=== PATIENT | female | born 1955 | race African-American/Black ===

== ENCOUNTER 2017-04-07 03:20 | Emergency (ER) | payer MEDICARE, OTHER ==
[~2017-04-07] VITALS: Ht 167.6 cm; Wt 72.6 kg
[2017-04-07 04:20] LABS: *BILIRUBIN,URIN NEGATIVE (NEGATIVE); *BLOOD, URINE NEGATIVE (NEGATIVE); *CLARITY,URINE CLEAR (CLEAR); *COLOR,URINE YELLOW (YELLOW); *KETONES,URINE NEGATIVE (NEGATIVE); *PROTEIN,URINE NEGATIVE (NEGATIVE); LEUKOCYTE ESTERASE ,URINE NEGATIVE (NEGATIVE); NITRITE, URINE NEGATIVE (NEGATIVE); PH,URINE 5.5 (5.0-8.0); UGLUCOSE NEGATIVE (NEGATIVE)
[2017-04-07 04:23] LABS: BASOPHILS # (AUTO) 0.1 K/uL (0.0-8.0); BASOPHILS % (AUTO) 0.9 % (0.0-2.0); EOSINOPHILS # (AUTO) 0.1 K/uL (0.0-0.7); EOSINOPHILS % (AUTO) 0.9 % (0.0-7.0); HEMATOCRIT 36.2 % (37-47); LYMPHOCYTES # (AUTO) 2.4 K/UL (0.8-4.8); LYMPHOCYTES % (AUTO) 35.5 % (20.5-51.5); MEAN CORPUSCULAR HEMOGLOBIN 28.1 UUG (27.0-31.0); MEAN CORPUSCULAR HGB CONC 33 g/dL (32.0-37.0); MEAN CORPUSCULAR VOLUME 84.5 FL (81.0-99.0); MONOCYTES # (AUTO) 0.8 K/UL (0.1-1.30); MONOCYTES % (AUTO) 10.9 % (0.0-11.0); NEUTROPHILS # (AUTO) 3.5 K/UL (1.8-8.9); NEUTROPHILS % (AUTO) 51.8 % (38.5-71.5); PLATELET COUNT (AUTO) 220 K/UL (150-450); RED BLOOD CELL COUNT(AUTO) 4.28 MIL/UL (4.2-5.4); WHITE BLOOD COUNT (AUTO) 6.9 K/UL (4.0-11.2)
[2017-04-07 04:26] LABS: RBC,URINE 0-3 /HPF (0-3)
[2017-04-07 04:27] LABS: BACTERIA,URINE NONE SEEN /HPF (NONE SEEN); SQUAMOUS EPITHELIAL CELL,UR NONE SEEN /HPF (NONE SEEN); WBC,URINE 0-3 /HPF (0-3)
[2017-04-07 04:28] LABS: CREATININE 1.1 mg/dL (0.6-1.3)
[2017-04-07 04:35] LABS: BILIRUBIN,DIRECT 0.3 mg/dL (0.0-0.2)
--- NOTE | 2017-04-07 05:10 | NUR ---
Patient discharged to home in stable conditon. Written and verbal after care instructions given. Patient verbalizes understanding of instructions. Ambulated from ER with stable gait. All belongings with patient.
[2017-04-07 05:12] VITALS: BP 129/80
[2017-04-07] MEDS ORDERED: POTASSIUM BICARBONATE/CIT AC 25 MEQ TABLET.EFF PO ONE (05:15)
[2017-04-07] MEDS ORDERED: POTASSIUM BICARBONATE/CIT AC 25 MEQ TABLET.EFF ONE (05:18)
== END 2017-04-07 05:13 | disposition home or self-care (01) ==
LOC: ER 03:22
DX: E87.6 Hypokalemia (principal); R10.31 Right lower quadrant pain; F17.200 Nicotine dependence, unspecified, uncomplicated; Z86.73 Personal history of transient ischemic attack (TIA), and cerebral infarction without residual deficits
CPT/HCPCS: 36415; 74176; 80048; 80076; 81001; 83690; 85025; 93005; 99285; A4663

== ENCOUNTER 2017-04-19 20:47 | Emergency (ER) | payer OTHER ==
[~2017-04-19] VITALS: Ht 172.7 cm; Wt 63.5 kg
--- NOTE | 2017-04-19 21:11 | NUR ---
Pt developed what she describes as an abscess in her groin area about 6 weeks ago, states she "brought it to a head" and drained it about 3-4 weeks ago, and now it is back and painful at site and in upper left leg, 02/18. Pt denies CP, SOB, numbness/tingling, dizziness, n/v, no other complaints, no distress noted.
[2017-04-19] MEDS ORDERED: SULFAMETH/TRIMETH 800/160 MG TABLET PO ONE (21:30)
[2017-04-19] MEDS ORDERED: CEFTRIAXONE 1 G VIAL IM ONE (21:30)
[2017-04-19] MEDS ORDERED: CEFTRIAXONE 1 G VIAL ONE (21:38)
[2017-04-19] MEDS ORDERED: SULFAMETH/TRIMETH 800/160 MG TABLET ONE (21:38)
--- NOTE | 2017-04-19 21:47 | NUR ---
Gave pt. RX and d/c instructions, verbalized understanding.
[2017-04-24] MEDS ORDERED: ACET325T53 PO (17:34)
[2017-04-24] MEDS ORDERED: DOCU100C36 PO (17:34)
[2017-04-24] MEDS ORDERED: ENOX40DI SQ (17:34)
[2017-04-24] MEDS ORDERED: PANT40TA2 PO (17:34)
[2017-04-24] MEDS ORDERED: ACID1TAB4 PO (17:34)
[2017-04-24] MEDS ORDERED: PIPE3.379 IV (17:34)
[2017-04-24] MEDS ORDERED: MAGN400O6 PO (17:34)
[2017-04-24] MEDS ORDERED: HYDR-3326 PO (17:34)
[2017-04-24] MEDS ORDERED: MULT1TAB73 PO (17:34)
[2017-04-24] MEDS ORDERED: RXVAN XX (17:34)
[2017-04-24] MEDS ORDERED: ZOLP5TAB8 PO (17:34)
== END 2017-04-19 21:49 | disposition home or self-care (01) ==
LOC: ER 20:47
DX: N76.4 Abscess of vulva (principal); F17.200 Nicotine dependence, unspecified, uncomplicated; Z86.73 Personal history of transient ischemic attack (TIA), and cerebral infarction without residual deficits
CPT/HCPCS: A4663; J0696; J3490

== ENCOUNTER 2017-04-22 04:40 | Inpatient (IN) | payer OTHER ==
[~2017-04-22] VITALS: Ht 172.7 cm; Wt 63.5 kg
--- NOTE | 2017-04-22 06:46 | NUR ---
UNABLE TO GAIN IV ACCESS AT THIS TIME.
[2017-04-22 07:02] LABS: BASOPHILS # (AUTO) 0.3 K/uL (0.0-8.0); BASOPHILS % (AUTO) 4.2 % (0.0-2.0); EOSINOPHILS # (AUTO) 0.2 K/uL (0.0-0.7); EOSINOPHILS % (AUTO) 3.1 % (0.0-7.0); HEMATOCRIT 31.3 % (37-47); HEMOGLOBIN 10.2 G/DL (12.0-16.0); LYMPHOCYTES # (AUTO) 2.1 K/UL (0.8-4.8); MEAN CORPUSCULAR HEMOGLOBIN 27.8 UUG (27.0-31.0); MEAN CORPUSCULAR HGB CONC 33 g/dL (32.0-37.0); MEAN CORPUSCULAR VOLUME 85.5 FL (81.0-99.0); MONOCYTES # (AUTO) 0.5 K/UL (0.1-1.30); MONOCYTES % (AUTO) 8.6 % (0.0-11.0); NEUTROPHILS # (AUTO) 2.9 K/UL (1.8-8.9); NEUTROPHILS % (AUTO) 49.1 % (38.5-71.5); PLATELET COUNT (AUTO) 306 K/UL (150-450); RED BLOOD CELL COUNT(AUTO) 3.66 MIL/UL (4.2-5.4)
--- NOTE | 2017-04-22 07:12 | NUR ---
REPORT GIVEN TO SANDI HOLDER.
[2017-04-22 07:18] LABS: CREATININE 0.8 mg/dL (0.6-1.3); POTASSIUM 4.7 mmol/L (3.5-5.1)
[2017-04-22 07:30] LABS: BILIRUBIN,DIRECT 0.1 mg/dL (0.0-0.2); BILIRUBIN,TOTAL 0.2 mg/dL (0.2-1.0); TOTAL PROTEIN, SERUM 7.6 g/dL (6.4-8.2)
--- NOTE | 2017-04-22 08:20 | NUR ---
PT ADMITTED TO M/S TRANSFER TO FLOOR PENDING ON US BEING DONE IN ER.
[2017-04-22 10:09] VITALS: BP 112/51
--- NOTE | 2017-04-22 11:25 | NUR ---
ADMISSION PROTOCOL INITIATED, PT IN NO ACUTE DISTRESS, HAS PAIN 8/10 IN BLE, VS STABLE. ADMISSION PICTURES TAKEN. CALL LIGHT IN REACH
[2017-04-22 11:58] VITALS: BP 111/65
--- NOTE | 2017-04-22 13:40 | NUR ---
CLINICAL PHARMACY NOTE:VANCOMYCIN DOSING Request for vancomycin dosing on 62 y/o female 5'8" 140LBS for bilateral lower extremity cellulitis Temp 98.5 BUN 6 Scr 0.8 Temp 98.5 also on Zosyn Vancomycin 1gm given in ER continue Vancomycin 1gm ivpb q16h estimated trough 14. Will order trough level prior to 4th dose. Will continue to monitor
--- NOTE | 2017-04-22 14:12 | NUR ---
PT IN ROOM TO EVALUATE PT, PAIN MEDICATION GIVEN PRIOR FOR PAIN 04/21
[2017-04-22] MEDS ORDERED: CEPH-570 PO (14:42)
[2017-04-22] MEDS ORDERED: SULF1TAB48 PO (14:42)
[2017-04-22 16:06] VITALS: BP 114/63
--- NOTE | 2017-04-22 17:44 | NUR ---
PT SLEEPING IN BED AT THIS TIME AWAKENS TO NAME. HAS MINIMAL PAIN AT THIS TIME, CALL LIGHT IN REACH, NO CHANGES SINCE ADMISSION. ALL SAFETY AND COMFORT MEASURES ATTENDED TOO
[2017-04-22 20:18] VITALS: BP 118/76
[2017-04-23 04:00] VITALS: BP 139/76
--- NOTE | 2017-04-23 06:30 | NUR ---
PT SLEPT WELL, IN NO ACUTE DISTRESS. IV ANTIBIOTICS ADMINISTERED ORDERED. NO ADVERSE REACTION NOTED. CALL LIGHT WITHIN REACH, BED ALARM ON. WILL CONTINUE TO MONITOR.
[2017-04-23 06:35] LABS: BASOPHILS # (AUTO) 0.1 K/uL (0.0-8.0); EOSINOPHILS # (AUTO) 0.1 K/uL (0.0-0.7); EOSINOPHILS % (AUTO) 2.9 % (0.0-7.0); HEMATOCRIT 28.8 % (37-47); HEMOGLOBIN 9.5 G/DL (12.0-16.0); LYMPHOCYTES % (AUTO) 40.5 % (20.5-51.5); MEAN CORPUSCULAR HEMOGLOBIN 28.2 UUG (27.0-31.0); MEAN CORPUSCULAR HGB CONC 33 g/dL (32.0-37.0); MEAN CORPUSCULAR VOLUME 85.1 FL (81.0-99.0); MONOCYTES # (AUTO) 0.4 K/UL (0.1-1.30); MONOCYTES % (AUTO) 7.5 % (0.0-11.0); NEUTROPHILS # (AUTO) 2.3 K/UL (1.8-8.9); NEUTROPHILS % (AUTO) 47.1 % (38.5-71.5); PLATELET COUNT (AUTO) 296 K/UL (150-450); RED BLOOD CELL COUNT(AUTO) 3.38 MIL/UL (4.2-5.4); WHITE BLOOD COUNT (AUTO) 4.9 K/UL (4.0-11.2)
[2017-04-23 06:51] LABS: BILIRUBIN,TOTAL 0.3 mg/dL (0.2-1.0); CREATININE 0.7 mg/dL (0.6-1.3); MAGNESIUM 1.5 mg/dL (1.8-2.4); PHOSPHOROUS 3.5 mg/dL (2.5-4.9); POTASSIUM 3.4 mmol/L (3.5-5.1); TOTAL PROTEIN, SERUM 6.3 g/dL (6.4-8.2)
[2017-04-23 11:44] VITALS: BP 128/71
[2017-04-23 12:29] LABS: THYROID STIMULATING HORMONE 2.206 mIU/mL (0.358-3.740)
--- NOTE | 2017-04-23 13:56 | NUR ---
Clinical Pharmacy Note: Vancomycin Dosing per Pharmacy Subjective: Vancomycin IV to continue on this 62 yo female patient for cellulitis ht 68'' wt 140 lb Objective: BUN 7 Scr 0.7 WBC 4.9 Temperature 98.4 Assessment/Plan: Will continue same dose of vanco 1000mg IV q16hr for today. 3rd dose is due tomorrow at 0600. Will draw a vancomycin trough level prior to the 4th dose of vancomycin (not yet ordered). Will monitor renal function & adjust dose if needed. Will continue to monitor
[2017-04-23 16:07] VITALS: BP 133/65
--- NOTE | 2017-04-23 18:30 | NUR ---
Pt is in no acute distress. Swelling on kimberli lower legs +2 noted since am. Pt denies any c/o pain. IV on left hand intact. Call light is within reach. .
[2017-04-23 20:00] VITALS: BP 129/69
--- NOTE | 2017-04-23 23:12 | NUR ---
ALERT AND ORIENTED X4. PAIN 7/10 ON BILATERAL LOWER EXT POSITIVE EDEMA. WALKS WITH WALKER CONTACT GUARD. NO CHEST PAIN NOR SOB. CALL LIGHT WITHIN REACH.
[2017-04-24 04:53] VITALS: BP 142/79
[2017-04-24 04:55] VITALS: BP 142/79
--- NOTE | 2017-04-24 06:31 | NUR ---
SLEPT INTERMITTENTLY THROUGH THE NIGHT GOT OOB TO PEE. REINSERTED IV CATH ON LEFT SIDE. OTHERWISE NO OTHER COMPLAINT, ALL NEEDS ATTENDED.
[2017-04-24 11:31] VITALS: BP 137/65
--- NOTE | 2017-04-24 11:54 | NUR ---
Clinical Pharmacy Note: Vancomycin Dosing per Pharmacy Subjective: Vancomycin IV to continue on this 62 yo female patient for cellulitis ht 68'' wt 140 lb Objective: BUN 7 (04/23) Scr 0.7 (04/23) WBC 4.9 (04/23) Temperature 98.8 Assessment/Plan: Will continue same dose of vanco 1000mg IV q16hr for today. 3rd dose was today at 0600. Will draw a vancomycin trough level prior to the 4th dose of vancomycin (Ordered for [facility] at 2130). RN endorsed to hold dose if level >20. Will check level in am and adjust as needed. Will continue to monitor
--- NOTE | 2017-04-24 15:38 | NUR ---
Discharge Plan: Once patient is medically cleared patient will be discharged to [[facility] [[address] [place] [address] ] confirmed by Max. Mcknight [Process Development Engineer [phone]] arranged for [facility] [[phone] Auth # [id number]] to transport the patient. Dr. Ruelas is aware. The patient is agreeable with the discharge plan.
[2017-04-24 15:51] VITALS: BP 143/77
[2017-04-24] MEDS ORDERED: HYDR-3326 PO (17:34)
[2017-04-24] MEDS ORDERED: PANT40TA2 PO (17:34)
[2017-04-24] MEDS ORDERED: DOCU100C36 PO (17:34)
[2017-04-24] MEDS ORDERED: MULT1TAB73 PO (17:34)
[2017-04-24] MEDS ORDERED: ZOLP5TAB8 PO (17:34)
[2017-04-24] MEDS ORDERED: MAGN400O6 PO (17:34)
[2017-04-24] MEDS ORDERED: ACET325T53 PO (17:34)
[2017-04-24] MEDS ORDERED: ACID1TAB4 PO (17:34)
[2017-04-24] MEDS ORDERED: ENOX40DI SQ (17:34)
[2017-04-24] MEDS ORDERED: PIPE3.379 IV (17:34)
[2017-04-24] MEDS ORDERED: RXVAN XX (17:34)
--- NOTE | 2017-04-24 18:15 | NUR ---
Report given to Sheila JUNIOR from [facility]. Dosage of Vancomycin and Zosyn and how many dosage was given. IV left on Left hand #22 gauge. Pt is in no acute distress. Report given EMT. Pt refused to have pictures taken of legs but legs less swollen and decrease redness. Pt to f/u with vaccines with her PMD.
== END 2017-04-24 18:05 | DRG 383 ==
LOC: ER 04:40 → MED 08:59
PROVIDERS: ADMIT Internal Medicine; ATTEND Internal Medicine
DX: L03.115 Cellulitis of right lower limb (principal); D68.59 Other primary thrombophilia; D63.8 Anemia in other chronic diseases classified elsewhere; Z86.73 Personal history of transient ischemic attack (TIA), and cerebral infarction without residual deficits; L03.116 Cellulitis of left lower limb; I51.7 Cardiomegaly; Z59.0 Homelessness; Z86.19 Personal history of other infectious and parasitic diseases; D75.9 Disease of blood and blood-forming organs, unspecified; R22.9 Localized swelling, mass and lump, unspecified
CPT/HCPCS: 36415; 70030-TC; 71010; 83550; 83735; 84100; 84443; 85025; 85651; 85730; 86140; 93005; 97116; 97530; A4663; J1650; J2543; J3370; J7050

== ENCOUNTER 2017-05-25 22:25 | Emergency (ER) | payer OTHER ==
[~2017-05-25] VITALS: Ht 167.6 cm; Wt 67.1 kg
[~2017-05-25 22:25] MED LIST: ACET325T53 PO; ACID1TAB4 PO; DOCU100C36 PO; ENOX40DI SQ; HYDR-3326 PO; MAGN400O6 PO; MULT1TAB73 PO; PANT40TA2 PO; PIPE3.379 IV; RXVAN XX; ZOLP5TAB8 PO
[2017-05-25 23:12] VITALS: BP 141/81
[2017-05-25] MEDS ORDERED: FUROSEMIDE 20 MG TABLET PO ONE (23:15)
[2017-05-25] MEDS ORDERED: FUROSEMIDE 20 MG TABLET ONE (23:20)
== END 2017-05-25 23:13 | disposition home or self-care (01) ==
LOC: ER 22:26
DX: R60.0 Localized edema (principal); F17.200 Nicotine dependence, unspecified, uncomplicated; Z86.73 Personal history of transient ischemic attack (TIA), and cerebral infarction without residual deficits
CPT/HCPCS: 99283; A4663

== ENCOUNTER 2017-06-07 03:02 | Inpatient (IN) | payer OTHER ==
[~2017-06-07] VITALS: Ht 167.6 cm; Wt 67.1 kg
--- NOTE | 2017-06-07 03:20 | NUR ---
Pt is received alert, responsive as she came in c/o Bilateral lower Extermities pain with Swelling, Rednessfor the past 2days. her care continue as she is help undressed as awaits MD for orders as she is with at bedside .
[2017-06-07] MEDS ORDERED: VANCOMYCIN IV 1,000 MG in IV DEXTROSE 5% 250 ML IV ONE (03:30)
[2017-06-07] MEDS ORDERED: ONDANSETRON 4 MG/2 ML VIAL IV ONE (03:30)
[2017-06-07] MEDS ORDERED: MORPHINE SULFATE 2 MG/1 ML DISP.SYRIN IV ONE (03:30)
[2017-06-07] MEDS ORDERED: ONDANSETRON 4 MG/2 ML VIAL ONE (03:57)
[2017-06-07] MEDS ORDERED: MORPHINE SULFATE 2 MG/1 ML DISP.SYRIN ONE (03:57)
[2017-06-07] MEDS ORDERED: VANCOMYCIN IV 200 ML ONE (03:58)
[2017-06-07 04:03] LABS: BASOPHILS % (AUTO) 0.4 % (0.0-2.0); EOSINOPHILS # (AUTO) 0.1 K/uL (0.0-0.7); EOSINOPHILS % (AUTO) 1.9 % (0.0-7.0); HEMATOCRIT 33.1 % (37-47); HEMOGLOBIN 11.1 G/DL (12.0-16.0); LYMPHOCYTES # (AUTO) 2.8 K/UL (0.8-4.8); LYMPHOCYTES % (AUTO) 51.2 % (20.5-51.5); MEAN CORPUSCULAR HEMOGLOBIN 27.7 UUG (27.0-31.0); MEAN CORPUSCULAR HGB CONC 34 g/dL (32.0-37.0); MEAN CORPUSCULAR VOLUME 82.6 FL (81.0-99.0); MONOCYTES # (AUTO) 0.4 K/UL (0.1-1.30); MONOCYTES % (AUTO) 7.9 % (0.0-11.0); NEUTROPHILS % (AUTO) 38.6 % (38.5-71.5); PLATELET COUNT (AUTO) 298 K/UL (150-450); RED BLOOD CELL COUNT(AUTO) 4.01 MIL/UL (4.2-5.4); WHITE BLOOD COUNT (AUTO) 5.3 K/UL (4.0-11.2)
[2017-06-07 04:09] LABS: CREATININE 0.8 mg/dL (0.6-1.3); POTASSIUM 4.1 mmol/L (3.5-5.1)
[2017-06-07 04:21] LABS: BILIRUBIN,DIRECT 0.1 mg/dL (0.0-0.2); BILIRUBIN,TOTAL 0.2 mg/dL (0.2-1.0)
--- NOTE | 2017-06-07 04:23 | NUR ---
Pt cont to c/o severe pain. Sts no change with previous medication. Dr. Valera notified, pt medicated. Will monitor for effects of medication. Pt resting in a position of comfort for self
[2017-06-07] MEDS ORDERED: HYDROMORPHONE 1 MG/1 ML DISP.SYRIN IV ONE ×2 (04:30→07:30)
[2017-06-07] MEDS ORDERED: HYDROMORPHONE 1 MG/1 ML DISP.SYRIN ONE ×2 (04:35→07:34)
--- NOTE | 2017-06-07 05:55 | NUR ---
Pt is resting in bed alert, responsive with call light in reach and fall precautions as pain management noted effective as pt will be admitted as her care continue.
--- NOTE | 2017-06-07 06:25 | NUR ---
Pt remain alert, responsive as [facility] is called at [phone] Newell is covering and also 2nd floor is called for bed as 220 is the bed for now.
[2017-06-07] MEDS ORDERED: ONDANSETRON 4 MG/2 ML VIAL IV PRN (06:45)
[2017-06-07] MEDS ORDERED: ENOXAPARIN SODIUM 40 MG/0.4 ML DISP.SYRIN SQ SCH (06:45)
[2017-06-07] MEDS ORDERED: Z GUARD REMEDY PASTE 57 GM TUBE TOP PRN (06:45)
[2017-06-07] MEDS ORDERED: ACETAMINOPHEN 325 MG TABLET PO PRN (06:45)
[2017-06-07] MEDS ORDERED: MAGNESIUM HYDROXIDE 30 ML LIQUID UDC PO PRN ×2 (06:45)
--- NOTE | 2017-06-07 06:45 | NUR ---
Pt remain alert, responsive as DR. Newell called ER MD for OK to admitted to Med/surg and DX: off Bilateral lower Extremities Cellulitis . Her care continue while monitor as 2nd floor was called to give report but was told to called at 7AM.
[2017-06-07] MEDS: PANTOPRAZOLE SODIUM 40 MG TABLET.DR PO SCH (07:10)
[2017-06-07] MEDS ORDERED: ENOXAPARIN SODIUM 40 MG/0.4 ML DISP.SYRIN SQ ONE (07:21)
[2017-06-07] MEDS ORDERED: PANTOPRAZOLE SODIUM 40 MG TABLET.DR PO ONE (07:22)
--- NOTE | 2017-06-07 08:02 | NUR ---
Pt is remain alert, responsive as report is given to the receiving nurse on the 2nd floor as pt is been admitted to Med/Surg room 220 as she remain stable. Her care continue.
[2017-06-07 08:21] VITALS: BP 156/65
--- NOTE | 2017-06-07 08:30 | NUR ---
PATIENT RECEIVED FROM ER VIA HOSPITAL BED, REPORT RECEIVED FROM LETY JUNIOR, 119/68, 74 PULSE, 18 RESP, 97.8 ORAL, ON ROOM AIR, COMPLAINS OF PAIN LEVEL 04/21, LETY JUNIOR FROM ER STATES DILAUDID WAS GIVEN AT 0723, REDNESS AND SWELLING NOTED TO BOTH LOWER EXTREMITIES, PICTURES PLACED IN CHART, 4 PLUS PITTING EDEMA NOTED ON ANKLES AND FEET, PAIN NOTED UPON TOUCH, NO OTHER SKIN ISSUES NOTED, PATIENT IS ALERT AND ORIENTED TO PERSON, PLACE, AND TIME. OCCASIONAL SLEEPING NOTED, HEP. LOCK NOTED TO RIGHT FOREARM 20 GAUGE, DOCTOR JEWELL NOTIFIED OF PATIENTS ARRIVAL
[2017-06-07] MEDS: ACIDOPHILUS/BULGARICUS CHEW TAB PO SCH ×2 (10:26→17:07)
[2017-06-07] MEDS: MULTIVITAMINS,THERAPEUTIC TABLET PO SCH (10:27)
[2017-06-07] MEDS: PIPERACILLIN/TAZOBACTAM/D5W 3.375 G in PREMIXED 1 EACH IV SCH ×3 (10:27→21:15)
[2017-06-07 11:05] VITALS: BP 132/64
--- NOTE | 2017-06-07 13:13 | NUR ---
FIRST DOSE OF ZOSYN GIVEN AT 1027, VERIFIED WITH PHARMACY, 1400 DOSE HELD DUE TO SCHEDULING ERROR, ORDER READS ZOSYN TO BE GIVEN Q8HR
[2017-06-07] MEDS ORDERED: PIPERACILLIN/TAZO/D5W 3.375 GM FROZEN IV SCH (14:00)
--- NOTE | 2017-06-07 14:19 | NUR ---
Clinical pharmacy note-Vancomycin dosing per pharmacy Subjective: To start Vancomycin dosing on this patient for cellulitis Objective: BUN 7 Scr 0.8 WBC 5.3 Temp 98.6 Ht 5'6" wt 140 lbs Assessment/Plan: Patient had Vancomycin 1gram in ER today at 0402. Will continue Vancomycin 1 gram IV every 14hrs(second dose today at 1800) and draw trough by 4th dose(not ordered yet) for expected trough around 16.31. Will monitor renal function closely to adjust the dose if needed. Will follow daily.
[2017-06-07 15:25] VITALS: BP 120/68
[2017-06-07] MEDS: VANCOMYCIN IV 1 G in PREMIXED 0 EACH IV SCH (17:08)
[2017-06-07] MEDS: MORPHINE SULFATE 2 MG/1 ML DISP.SYRIN IV PRN (18:53)
[2017-06-07 20:00] VITALS: BP 109/59
--- NOTE | 2017-06-07 20:00 | NUR ---
RECEIVED PATIENT ASLEEP IN BED. EASILY AROUSABLE. DENIES PAIN. NO RESP. DISTRESS NOTED. VSS. CALL LIGHT IN REACH. ALL NEEDS ATTENDED. WILL CONTINUE TO MONITOR.
[2017-06-07] MEDS: DOCUSATE SODIUM 100 MG CAPSULE PO SCH (20:53)
--- NOTE | 2017-06-08 05:26 | NUR ---
PATIENT AWAKE IN BED. SLEPT WELL THROUGHOUT THE NIGHT. C/O PAIN IN BILATERAL FEET 04/21. VSS. PATIENT GIVEN MORPHINE 2MG IV PER FRUIT AND VEGETABLE PARER. CALL LIGHT IN REACH. ALL NEEDS ATTENDED. WILL CONTINUE TO MONITOR AND ASSESS.
[2017-06-08] MEDS: PIPERACILLIN/TAZOBACTAM/D5W 3.375 G in PREMIXED 1 EACH IV SCH ×3 (05:41→21:32)
[2017-06-08] MEDS: MORPHINE SULFATE 2 MG/1 ML DISP.SYRIN IV PRN ×2 (05:41→11:06)
[2017-06-08 06:01] VITALS: BP 119/54
[2017-06-08] MEDS: PANTOPRAZOLE SODIUM 40 MG TABLET.DR PO SCH (06:07)
[2017-06-08 06:48] LABS: BASOPHILS # (AUTO) 0.1 K/uL (0.0-8.0); BASOPHILS % (AUTO) 1.1 % (0.0-2.0); CREATININE 0.9 mg/dL (0.6-1.3); EOSINOPHILS # (AUTO) 0.1 K/uL (0.0-0.7); EOSINOPHILS % (AUTO) 1.6 % (0.0-7.0); HEMATOCRIT 29.2 % (37-47); HEMOGLOBIN 9.8 G/DL (12.0-16.0); LYMPHOCYTES # (AUTO) 1.5 K/UL (0.8-4.8); LYMPHOCYTES % (AUTO) 28.8 % (20.5-51.5); MAGNESIUM 1.6 mg/dL (1.8-2.4); MEAN CORPUSCULAR HEMOGLOBIN 27.9 UUG (27.0-31.0); MEAN CORPUSCULAR HGB CONC 34 g/dL (32.0-37.0); MEAN CORPUSCULAR VOLUME 83.1 FL (81.0-99.0); MONOCYTES # (AUTO) 0.4 K/UL (0.1-1.30); MONOCYTES % (AUTO) 8.2 % (0.0-11.0); NEUTROPHILS # (AUTO) 3.2 K/UL (1.8-8.9); NEUTROPHILS % (AUTO) 60.3 % (38.5-71.5); PHOSPHOROUS 3.5 mg/dL (2.5-4.9); PLATELET COUNT (AUTO) 257 K/UL (150-450); POTASSIUM 3.7 mmol/L (3.5-5.1); RED BLOOD CELL COUNT(AUTO) 3.51 MIL/UL (4.2-5.4); WHITE BLOOD COUNT (AUTO) 5.3 K/UL (4.0-11.2)
--- NOTE | 2017-06-08 08:00 | NUR ---
RECEIVED PATIENT IN BED AWAKE ALERT AND ORIENTED DENIES PAIN OR DISCOMFORTS AT THIS TIME CALL LIGHTS ARE WITHIN EASY REACH PATIENT MADE COMFORTABLE AT THIS TIME.
[2017-06-08] MEDS: MULTIVITAMINS,THERAPEUTIC TABLET PO SCH (08:24)
[2017-06-08] MEDS: ACIDOPHILUS/BULGARICUS CHEW TAB PO SCH ×2 (08:24→16:32)
[2017-06-08] MEDS: VANCOMYCIN IV 1 G in PREMIXED 0 EACH IV SCH ×2 (08:25→21:37)
[2017-06-08] MEDS: ENOXAPARIN SODIUM 40 MG/0.4 ML DISP.SYRIN SQ SCH (08:32)
--- NOTE | 2017-06-08 09:59 | NUR ---
PATIENT REMAIN ON IV ANTIBIOTICS ORDERED WITH NO ADVERSE OR ALLERGIC REACTIONS AT THIS TIME BILATERAL LOWER EXT REMAINS WITH EDEMA ENCOURAGED TO ELEVATE ON THE PILLOW AND SHE EXPRESSED UNDERSTANDING.
--- NOTE | 2017-06-08 11:10 | NUR ---
IV SITE RIGHT ARM INFILTERATED REINSERTED TO HER LEFT HAND WITH TWO ATTEMPTS AND PATIENT TOLERATED PROCEDURE WELL
[2017-06-08 11:39] VITALS: BP 114/62
[2017-06-08] MEDS ORDERED: MAGNESIUM OXIDE 400 MG TABLET PO ONE (14:00)
--- NOTE | 2017-06-08 14:52 | NUR ---
Clinical pharmacy note-Vancomycin dosing per pharmacy Subjective: To continue Vancomycin dosing on this patient for cellulitis Objective: BUN 14 Scr 0.9 WBC 5.3 Temp 98.4 Ht 5'6" wt 140 lbs Assessment/Plan: Will continue Vancomycin 1 gram IV every 14hrs(third dose today at 0825) and draw trough by 4th dose(ordered tonight at 2130) for expected trough around 16.31. Will monitor renal function closely to adjust the dose if needed. Will follow daily.
[2017-06-08 15:42] VITALS: BP 126/68
[2017-06-08] MEDS: HYDROCODONE/APAP 5-325MG TABLET PO PRN ×2 (16:32→20:48)
--- NOTE | 2017-06-08 16:58 | NUR ---
BILATERAL LOWER EXTREMITIES SWELLING PERSISTS ELEVATED ON PILLOW WITH IV ANTIBIOTICS IN PROGRESS ORDERED.MEDICATED PO FOR C/O GENERALISED PAIN AND HELPFUL MADE COMFORTABLE AND WILL CONTINUE TO OBSERVE
[2017-06-08 17:39] LABS: IRON, SERUM 63 ug/dL (50-175)
--- NOTE | 2017-06-08 18:00 | NUR ---
RESTING STATED COMFORTABLE WITH IV ANTIBIOTICS ORDERED WITH NO ADVERSE OR ALLERGIC REACTIONS AT THIS TIME.
--- NOTE | 2017-06-08 19:45 | NUR ---
RECEIVED IN BED ALERT ORIENTED, COMPLAIN OF PAIN OF BILATERAL FEET CELLULITIS WILL MEDICATE FOR PAIN, NO CHEST NO SOB NOTED, ASSISTED WITH TOILETING, CALL LIGHT WITHIN REACH. TEACH PATIENT TO ELEVATE BILATERAL FEET DUE TO EDEMA, KEPT SKIN CLEAN AND DRY.
[2017-06-08 20:30] VITALS: BP 113/62
[2017-06-08] MEDS: DOCUSATE SODIUM 100 MG CAPSULE PO SCH (20:41)
[2017-06-08] MEDS: ATORVASTATIN 10 MG TABLET PO SCH (21:32)
[2017-06-08] MEDS ORDERED: ATORVASTATIN 10 MG TABLET ONE (21:46)
[2017-06-09] MEDS: PIPERACILLIN/TAZOBACTAM/D5W 3.375 G in PREMIXED 1 EACH IV SCH ×3 (05:24→22:18)
[2017-06-09] MEDS: PANTOPRAZOLE SODIUM 40 MG TABLET.DR PO SCH (06:02)
[2017-06-09 06:20] VITALS: BP 128/71
--- NOTE | 2017-06-09 06:34 | NUR ---
PATIENT SLEPT MOST OF THE NIGHT, NO SOB NO CHEST PAIN, USES BEDPAN FOR BLADDER ELIMINATION, ALSO ASSISTED WITH TOILETING, KEPT BOTH FEET ELEVATED WITH PILLOW EDEMA STILL PRESENT, CONT TO MONITOR, NO COMPLAIN OF DISCOMFORT AT THIS TIME.
[2017-06-09 06:56] LABS: CREATININE 0.9 mg/dL (0.6-1.3); MAGNESIUM 1.7 mg/dL (1.8-2.4); POTASSIUM 3.8 mmol/L (3.5-5.1)
--- NOTE | 2017-06-09 07:45 | NUR ---
RECEIVED ALERT ORIENTED AND VERBALLY RESPONSIVE VOIDING WELL USING THE BEDPAN ON ROOM AIR WITH NO SHORTNESS OF BREATH AT THIS TIME.REMAIN ON IV ANTIBIOTICS ORDERED WITH NO ADVERSE OR ALLERGIC REACTIONS AT THIS TIME.BOTH LOWER EXTREMITIES WITH EDEMA ELEVATED ON 2 PILLOWS MADE COMFORTABLE AND WILL OBSERVE.
[2017-06-09] MEDS: ACIDOPHILUS/BULGARICUS CHEW TAB PO SCH ×2 (08:33→16:02)
[2017-06-09] MEDS: HYDROCODONE/APAP 5-325MG TABLET PO PRN (08:43)
[2017-06-09] MEDS: MULTIVITAMINS,THERAPEUTIC TABLET PO SCH (08:43)
[2017-06-09] MEDS: ENOXAPARIN SODIUM 40 MG/0.4 ML DISP.SYRIN SQ SCH (08:51)
[2017-06-09] MEDS ORDERED: MAGNESIUM OXIDE 400 MG TABLET PO ONE (09:15)
[2017-06-09 10:08] LABS: *BILIRUBIN,URIN NEGATIVE (NEGATIVE); *BLOOD, URINE NEGATIVE (NEGATIVE); *CLARITY,URINE CLEAR (CLEAR); *COLOR,URINE LIGHT YELLOW (YELLOW); *KETONES,URINE NEGATIVE (NEGATIVE); *PROTEIN,URINE NEGATIVE (NEGATIVE); *UROBILINOGEN,URINE 0.2 E.U./dl (NORMAL); LEUKOCYTE ESTERASE ,URINE NEGATIVE (NEGATIVE); NITRITE, URINE NEGATIVE (NEGATIVE); UGLUCOSE NEGATIVE (NEGATIVE)
[2017-06-09 10:24] LABS: BACTERIA,URINE NONE SEEN /HPF (NONE SEEN); RBC,URINE NONE SEEN /HPF (0-3); WBC,URINE 0-3 /HPF (0-3)
[2017-06-09 10:25] LABS: SQUAMOUS EPITHELIAL CELL,UR FEW /HPF (NONE SEEN); YEAST,URINE FEW /HPF (NONE SEEN)
--- NOTE | 2017-06-09 10:55 | NUR ---
Clinical pharmacy note-Vancomycin dosing per pharmacy Subjective: To continue Vancomycin dosing on this patient for cellulitis Objective: BUN 12 Scr 0.9 WBC 5.3 (06/08) Temp 98 Ht 5'6" wt 140 lbs Trough: 14.4 last night at 2130 Assessment/Plan: Based on trough, will continue same regimen of 1gm q14hr for now. Will monitor renal function closely to adjust the dose if needed. Will follow daily.
[2017-06-09 11:23] VITALS: BP 132/64
[2017-06-09] MEDS: VANCOMYCIN IV 1 G in PREMIXED 0 EACH IV SCH (11:54)
[2017-06-09] MEDS: MORPHINE SULFATE 4 MG/1 ML DISP.SYRIN IV PRN ×2 (16:02→20:50)
[2017-06-09 16:25] VITALS: BP 136/78
--- NOTE | 2017-06-09 18:00 | NUR ---
REMAIN ON IV ANTIBIOTICS ORDERED WITH NO ADVERSE OR ALLERGIC REACTIONS AT THIS TIME.BOTH LEGS ELEVATED ON THE PILLOW MADE COMFORTABLE AND WILL CONTINUE TO OBSERVE.
--- NOTE | 2017-06-09 19:30 | NUR ---
RECEIVED SHIFT REPORT FROM PREVIOUS SHIFT NURSE. PATIENT IS IN STABLE CONDITION, WITH NO S/S OF DISTRESS. PATIENT COMPLAINED OF BLE PAIN D/T CELLULITIS. WILL FOLLOW UP WITH PATIENT WITH POSSIBLE PAIN MEDICATION. BED IN LOCKED/ LOW POSITION. VERBALIZED TO PATIENT TO USE CALL LIGHT WHENEVER URINE IN BED HUANG NEEDS TO BE DISCARDED TO PREVENT FALL. CALL LIGHT WITHIN REACH. COMFORT AND SAFETY WILL BE PROVIDED.
[2017-06-09 20:00] VITALS: BP 118/63
[2017-06-09] MEDS: DOCUSATE SODIUM 100 MG CAPSULE PO SCH (21:25)
[2017-06-09] MEDS: ATORVASTATIN 10 MG TABLET PO SCH (21:25)
[2017-06-10] MEDS: MORPHINE SULFATE 4 MG/1 ML DISP.SYRIN IV PRN ×2 (02:17→08:59)
[2017-06-10] MEDS: VANCOMYCIN IV 1 G in PREMIXED 0 EACH IV SCH ×2 (02:18→15:37)
[2017-06-10] MEDS: PIPERACILLIN/TAZOBACTAM/D5W 3.375 G in PREMIXED 1 EACH IV SCH ×2 (06:28→14:00)
[2017-06-10] MEDS: PANTOPRAZOLE SODIUM 40 MG TABLET.DR PO SCH (06:29)
[2017-06-10 06:32] VITALS: BP 134/64
--- NOTE | 2017-06-10 07:30 | NUR ---
AWAKE ALERT AND ORIENTED ASSISTED UP FROM THE BED INTO THE BATHROOM STATED THAT SHE WANTED TO MOVE HER BOWEL.REMAIN ON IV ANTIBIOTICS ORDERED WITH NO ADVERSE OR ALLERGIC REACTIONS AT THIS TIME.MADE COMFORTABLE NOT IN DISTRESS AT THIS TIME.
[2017-06-10] MEDS: MULTIVITAMINS,THERAPEUTIC TABLET PO SCH (08:47)
[2017-06-10] MEDS: ACIDOPHILUS/BULGARICUS CHEW TAB PO SCH ×2 (08:47→16:54)
[2017-06-10] MEDS: ENOXAPARIN SODIUM 40 MG/0.4 ML DISP.SYRIN SQ SCH (08:48)
--- NOTE | 2017-06-10 10:33 | NUR ---
Clinical pharmacy note-Vancomycin dosing per pharmacy Subjective: To continue Vancomycin dosing on this patient for cellulitis Objective: BUN 12 Scr 0.9 WBC 5.3 (06/08) Temp 98 Assessment/Plan: Based on trough, will continue same regimen of 1gm q14hr for now. Will monitor renal function closely to adjust the dose if needed. Will follow daily.
[2017-06-10 11:57] VITALS: BP 143/77
[2017-06-10] MEDS: HYDROCODONE/APAP 5-325MG TABLET PO PRN (14:00)
--- NOTE | 2017-06-10 14:06 | NUR ---
IV SITE IS INFILTERATED AND LEAKING REMOVED PATIENT IS FOR DISCHARGE TODAY SO I CALLED DR HINOJOSA TO CONFIRM WITH HIM THE NEED TO CONTINUE ANTIBIOTICS SO I CAN INSERT A NEW LINE AND HE STATED NOT TO REINSERT STATED THAT PATIENT WILL BE DISCHARGED ON ORAL ANTIBIOTICS.THE SERVICES ENGINEER SPOKE TO THE PATIENT THAT SHE WILL BE TRANSFERED TO [facility]PER TIME IS 1600 PATIENT IS AGREEABLE AT THIS TIME.
[2017-06-10] MEDS ORDERED: SULF1TAB48 PO (15:02)
--- NOTE | 2017-06-10 15:32 | NUR ---
DISCHARGE INSTRUCTIONS GIVEN TO PATIENT NOTIFIED THAT SHE WILL START ON BACTRIM DS FOR 5 DAYS AND WILL FOLLOW UP WITH HER PRIMARY DOCTOR WITHIN THE NEXT ONE TO TWO WEEKS AND SHE EXPRESSED UNDERSTANDING.AWAITING FOR THE AMBULANCE ARRANGED BY THE [facility] TO PICKING CREW SUPERVISOR PATIENT AT ABOUT 1600
[2017-06-10 15:55] VITALS: BP 129/69
--- NOTE | 2017-06-10 17:30 | NUR ---
PATIENT DISCHARGED BY [facility] BY [facility] SENT BY THE [facility] IN SATISFACTORY CONDITION WITH DISCHARGE INSTRUCTIONS AND ALL HER PERSONAL BELONGINGS.PATIENT INSTRUCTED TO CONTINUE ON ANTIBIOTICS ORDERED AND SHE EXPRESSED UNDERSTANDING.
== END 2017-06-10 17:30 | DRG 383 ==
LOC: ER 03:03 → MED 07:30
PROVIDERS: ADMIT Family Medicine; ATTEND Family Medicine
DX: L03.116 Cellulitis of left lower limb (principal); D68.59 Other primary thrombophilia; K75.9 Inflammatory liver disease, unspecified; E83.42 Hypomagnesemia; F17.200 Nicotine dependence, unspecified, uncomplicated; D50.9 Iron deficiency anemia, unspecified; Z86.73 Personal history of transient ischemic attack (TIA), and cerebral infarction without residual deficits; L03.115 Cellulitis of right lower limb; Z98.890 Other specified postprocedural states; Z79.899 Other long term (current) drug therapy; Z74.09 Other reduced mobility; Z59.0 Homelessness; D75.9 Disease of blood and blood-forming organs, unspecified
CPT/HCPCS: 36415; 70030-TC; 71010; 83550; 83605; 83735; 84100; 85025; 85730; 87040; 87086; 93005; A4663; J1170; J1650; J2270; J2405; J2543; J3370; J7040; J7050

== ENCOUNTER 2017-12-20 23:09 | Emergency (ER) | payer MEDICARE, OTHER ==
[~2017-12-20] VITALS: Ht 167.6 cm; Wt 67.1 kg
[~2017-12-20 23:09] MED LIST changes: -ENOX40DI SQ; -PIPE3.379 IV; -RXVAN XX; +SULF1TAB48 PO; -ZOLP5TAB8 PO
--- NOTE | 2017-12-21 00:01 | NUR ---
Dr. Valera at bedside for MSE.
--- NOTE | 2017-12-21 00:50 | NUR ---
Ultrasound at bedside.
--- NOTE | 2017-12-21 01:45 | NUR ---
Patient discharged to home in stable conditon. Written and verbal after care instructions given. Patient verbalizes understanding of instructions. Patient ambulated out of ER using wheelchair as a walker, no acute signs of distress, VSS, all belongings taken. Patient states the buses have stopped running and that she will just wait in the waiting room until they start running again at 6am. playground supervisor notified for Taxi Voucher. Patient waiting in waiting room.
--- NOTE | 2017-12-21 02:15 | NUR ---
Patient received taxi voucher.
[2017-12-21 02:32] VITALS: BP 125/82
[2018-01-19] MEDS ORDERED: ACET325T53 PO (14:21)
[2018-01-19] MEDS ORDERED: MULT-24 PO (14:21)
[2018-01-19] MEDS ORDERED: ASPI-618 PO (14:21)
[2018-01-19] MEDS ORDERED: FAMO-132 PO (14:21)
[2018-01-19] MEDS ORDERED: MAG30ORA PO (14:21)
[2018-01-19] MEDS ORDERED: MAGN400C PO (14:21)
[2018-01-19] MEDS ORDERED: SIMV10TA6 PO (14:21)
== END 2017-12-21 02:15 | disposition home or self-care (01) ==
LOC: ER 23:12
DX: L02.214 Cutaneous abscess of groin (principal); R60.9 Edema, unspecified; F17.210 Nicotine dependence, cigarettes, uncomplicated; Z86.73 Personal history of transient ischemic attack (TIA), and cerebral infarction without residual deficits; Z79.899 Other long term (current) drug therapy
CPT/HCPCS: A4663

== ENCOUNTER 2017-12-27 11:18 | Inpatient (IN) | payer OTHER ==
[~2017-12-27] VITALS: Ht 167.6 cm; Wt 68.0 kg
[2017-12-27 12:31] LABS: BASOPHILS % (AUTO) 0.3 % (0.0-2.0); EOSINOPHILS # (AUTO) 0.1 K/uL (0.0-0.7); EOSINOPHILS % (AUTO) 0.8 % (0.0-7.0); HEMATOCRIT 30.9 % (31.2-41.9); HEMOGLOBIN 10.7 g/dL (10.9-14.3); LYMPHOCYTES # (AUTO) 2.9 K/uL (20.0-40.0); LYMPHOCYTES % (AUTO) 44.2 % (20.5-51.5); MEAN CORPUSCULAR HGB CONC 35 g/dL (32.3-35.6); MEAN CORPUSCULAR VOLUME 81.1 fL (75.5-95.3); MONOCYTES # (AUTO) 0.4 K/uL (2.0-10.0); MONOCYTES % (AUTO) 6.1 % (0.0-11.0); NEUTROPHILS # (AUTO) 3.2 K/uL (1.8-8.9); NEUTROPHILS % (AUTO) 48.6 % (38.5-71.5); PLATELET COUNT (AUTO) 150 K/uL (179-408); RED BLOOD CELL COUNT(AUTO) 3.81 MIL/uL (3.63-4.92); WHITE BLOOD COUNT (AUTO) 6.7 K/uL (3.8-11.8)
[2017-12-27 12:39] LABS: CREATININE 0.8 mg/dL (0.6-1.3); POTASSIUM 3.4 mmol/L (3.5-5.1)
[2017-12-27 12:52] LABS: BILIRUBIN,DIRECT 0.1 mg/dL (0.0-0.2); BILIRUBIN,TOTAL 0.2 mg/dL (0.2-1.0); TOTAL PROTEIN, SERUM 7.4 g/dL (6.4-8.2)
--- NOTE | 2017-12-27 12:52 | NUR ---
Patient is resting comfortably on gurney with eyes closed since 1145, denies pains at the moment.
[2017-12-27] MEDS ORDERED: IV NORMAL SALINE 1000 ML BAG IV ONE (13:15)
[2017-12-27] MEDS ORDERED: LEVOFLOXACIN 750MG/D5W 150 ML IV ONE ×2 (13:15→13:38)
[2017-12-27] MEDS ORDERED: METRONIDAZOLE 500 MG/NS 100ML 100 ML IV ONE ×2 (13:15→13:38)
--- NOTE | 2017-12-27 13:22 | NUR ---
Call placed to [facility], Dr. Grimm will be paged.
[2017-12-27 13:25] LABS: *BLOOD, URINE Trace-lysed (NEGATIVE); *CLARITY,URINE CLEAR (CLEAR); *COLOR,URINE YELLOW (YELLOW); *KETONES,URINE NEGATIVE (NEGATIVE); *PROTEIN,URINE 2+ (NEGATIVE); *UROBILINOGEN,URINE 0.2 E.U./dl (NORMAL); LEUKOCYTE ESTERASE ,URINE NEGATIVE (NEGATIVE); NITRITE, URINE NEGATIVE (NEGATIVE); UGLUCOSE NEGATIVE (NEGATIVE)
[2017-12-27 13:27] LABS: *BILIRUBIN,URIN NEGATIVE (NEGATIVE)
[2017-12-27 13:34] LABS: BACTERIA,URINE NONE SEEN /HPF (NONE SEEN); MUCUS,URINE MODERATE /LPF (0-FEW); SQUAMOUS EPITHELIAL CELL,UR MANY /HPF (NONE SEEN); WBC,URINE 0-3 /HPF (0-3)
--- NOTE | 2017-12-27 13:59 | NUR ---
Patient ate 2 whole peanut butter sandwiches with good appetite. 100% of the sandwiches were eaten, pending callback fron 2nd floor telemetry nurse to accept [email or web address]@this time.
--- NOTE | 2017-12-27 14:00 | NUR ---
Pt has been settled in. No immediate s/s of SOB or distress. Pt states 8-9/10 generalized body pain. Palisades 10 given, pt states she has never taken Palisades before. IV hydration started as ordered. Pt stated she was hungry, ordered a sandwich from dietary, gave pt her sandwich, jell-o, juices and pudding. Pt is resting in bed watching television. Pt is noted to be very polite
--- NOTE | 2017-12-27 14:10 | NUR ---
Received report from ER nurse
[2017-12-27] MEDS ORDERED: HYDROCODONE/APAP 5-325MG TABLET PO PRN (14:45)
[2017-12-27] MEDS ORDERED: ZOLPIDEM 5 MG TABLET PO PRN (14:45)
[2017-12-27] MEDS ORDERED: ONDANSETRON 4 MG/2 ML VIAL IV PRN (14:45)
[2017-12-27] MEDS ORDERED: ACETAMINOPHEN 325 MG TABLET PO PRN (14:45)
[2017-12-27] MEDS ORDERED: MAGNESIUM HYDROXIDE 30 ML LIQUID UDC PO PRN (14:45)
[2017-12-27] MEDS ORDERED: Z GUARD REMEDY PASTE 57 GM TUBE TOP PRN (14:45)
[2017-12-27 15:20] VITALS: BP 141/77
--- NOTE | 2017-12-27 15:35 | NUR ---
Lactic Acid 2.1, critical value trending downward from 2.7
[2017-12-27] MEDS: IV NS 1000 ML 1,000 ML IV PRN (15:38)
[2017-12-27] MEDS: HYDROCODONE/APAP 10-325 MG TABLET PO PRN (15:48)
--- NOTE | 2017-12-27 18:55 | NUR ---
Pt is in bed resting. No apparent s/s of SOB, pain, distress or discomfort. NSR on tele. Bed at lowest position for safety and call light within reach for assistance. noted pt is able to eat on her own. Pt denies she has Hep C but states she has hemoglobin C.
[2017-12-27 20:00] VITALS: BP 121/62
[2017-12-27] MEDS ORDERED: METRONIDAZOLE 500 MG/NS 100ML 200 ML IV ONE (22:31)
[2017-12-27] MEDS: METRONIDAZOLE 500 MG/NS 100ML 500 MG in PREMIXED 1 EACH IV SCH (22:36)
[2017-12-28 04:00] VITALS: BP 146/83
[2017-12-28] MEDS: METRONIDAZOLE 500 MG/NS 100ML 500 MG in PREMIXED 1 EACH IV SCH ×5 (05:10→22:00)
[2017-12-28] MEDS: IV NS 1000 ML 1,000 ML IV PRN (05:11)
[2017-12-28 06:35] LABS: CREATININE 0.7 mg/dL (0.6-1.3); MAGNESIUM 1.4 mg/dL (1.8-2.4); PHOSPHOROUS 2.9 mg/dL (2.5-4.9); POTASSIUM 3.6 mmol/L (3.5-5.1)
[2017-12-28] MEDS: PANTOPRAZOLE SODIUM 40 MG TABLET.DR PO SCH (06:38)
[2017-12-28 06:54] LABS: BASOPHILS % (AUTO) 0.5 % (0.0-2.0); EOSINOPHILS # (AUTO) 0.1 K/uL (0.0-0.7); EOSINOPHILS % (AUTO) 1.6 % (0.0-7.0); HEMOGLOBIN 9.9 g/dL (10.9-14.3); LYMPHOCYTES # (AUTO) 1.8 K/uL (20.0-40.0); LYMPHOCYTES % (AUTO) 34.9 % (20.5-51.5); MEAN CORPUSCULAR HEMOGLOBIN 27.9 uug (24.7-32.8); MEAN CORPUSCULAR HGB CONC 34 g/dL (32.3-35.6); MEAN CORPUSCULAR VOLUME 81.9 fL (75.5-95.3); MONOCYTES # (AUTO) 0.4 K/uL (2.0-10.0); MONOCYTES % (AUTO) 7.8 % (0.0-11.0); NEUTROPHILS # (AUTO) 2.9 K/uL (1.8-8.9); NEUTROPHILS % (AUTO) 55.2 % (38.5-71.5); PLATELET COUNT (AUTO) 128 K/uL (179-408); RED BLOOD CELL COUNT(AUTO) 3.55 MIL/uL (3.63-4.92); WHITE BLOOD COUNT (AUTO) 5.2 K/uL (3.8-11.8)
--- NOTE | 2017-12-28 06:56 | NUR ---
Pt slept through the night. Assisted to bathroom this morning. Denies pain or discomfort at this time.
--- NOTE | 2017-12-28 07:05 | NUR ---
Received the pt sleeping with no immediate s/s of SOB, pain, distress or discomfort.
[2017-12-28] MEDS: MULTIVITAMINS,THERAPEUTIC TABLET PO SCH (08:28)
[2017-12-28] MEDS ORDERED: Medication Not On Formulary EA (Multivitamins (Multivitamin) 1 TAB) PO SCH (09:00)
[2017-12-28 12:00] VITALS: BP 114/66
--- NOTE | 2017-12-28 12:00 | NUR ---
MD consultation took place
[2017-12-28] MEDS ORDERED: LEVOFLOXACIN 500 MG/D5W 500 MG in PREMIXED 1 EACH IV SCH (13:00)
--- NOTE | 2017-12-28 13:02 | NUR ---
DVT pumps in place
--- NOTE | 2017-12-28 15:10 | NUR ---
ASSISTANT DIRECTOR OF ADMISSIONS noted pt's left AC IV line infiltrated. IV line removed, left upper extremity elevated on pillow, warm blanket and warm pack place to decrease swelling. Pt states she does not have any pain.
[2017-12-28] MEDS: MAGNESIUM SULFATE/D5W 100 ML IV SCH ×4 (15:33→18:46)
--- NOTE | 2017-12-28 15:35 | NUR ---
New 22g IV line place on the right hand, one try, pt tolerated procedure well, pt states no pain. First bag of Magnesium hung
[2017-12-28 15:52] VITALS: BP 117/64
--- NOTE | 2017-12-28 16:00 | NUR ---
Received a call from Paris from [facility] in regards to the pt's status and condition. Informed Norah that the pt did not give permission to update her on the pt's medical status. Paris asked to speak with case management, it was informed to Paris that she could try calling back tomorrow since we did not have case management staff today.
--- NOTE | 2017-12-28 19:45 | NUR ---
RECEIVED PATIENT IN BED, ALERT, ORIENTED, NO SOB NO CHEST PAIN, RYTHM SINUS RYTHM, NO COMPLAIN OF PAIN AT THIS TIME. USES BED HUANG FOR URINARY ELIMINATION. KEPT COMFORTABLE, CONT TO MONITOR.
[2017-12-28 20:23] VITALS: BP 118/78
[2017-12-28] MEDS: HYDROCODONE/APAP 10-325 MG TABLET PO PRN (20:23)
[2017-12-28 20:27] VITALS: BP 117/63
[2017-12-29 00:19] VITALS: BP 136/67
[2017-12-29] MEDS: IV NS 1000 ML 1,000 ML IV PRN (00:20)
[2017-12-29 05:31] VITALS: BP 139/72
--- NOTE | 2017-12-29 06:20 | NUR ---
PATIENT SLEPT MOST OF THE NIGHT, NO SOB NO CHEST PAIN NOTED, CONT ON PAIN MANAGEMENT, NO FURTHER EPISODES OF DIARRHEA, PATIENT HAS EPISODE OF SINUS BRADYCARDIA BUT PATIENT ASYMPTOMATIC, NO CHEST NO SHORTNESS OF BREATH, PATIENT ASLEEP, BUT EASILY AROUSABLE, CONTINENT OF BOWEL AND BLADDER, CALL LIGHT WITHIN REACH.
[2017-12-29 06:32] LABS: CREATININE 0.8 mg/dL (0.6-1.3); MAGNESIUM 1.9 mg/dL (1.8-2.4); POTASSIUM 3.5 mmol/L (3.5-5.1)
[2017-12-29] MEDS: PANTOPRAZOLE SODIUM 40 MG TABLET.DR PO SCH (06:52)
--- NOTE | 2017-12-29 08:00 | NUR ---
Discussed plan of care with pt re: fall precautions, keeping wound dry and intact, and diarrhea management. Pt agreeable with plan of care. Call light is within reach.
[2017-12-29] MEDS: MULTIVITAMINS,THERAPEUTIC TABLET PO SCH (08:05)
[2017-12-29 11:17] VITALS: BP 137/71
[2017-12-29] MEDS: LEVOFLOXACIN 500 MG TABLET PO SCH (12:14)
[2017-12-29 15:41] VITALS: BP 150/63
--- NOTE | 2017-12-29 18:30 | NUR ---
Pt ambulates independently with good balance, no fall noted this shift. No notice of diarrhea this shift. Pt denies any c/o pain. Plan of care effective. Call light is within reach.
--- NOTE | 2017-12-29 19:30 | NUR ---
Pt in room alert awake oriented in no acute distress. Minimal diarrhea still present but able to make needs known. gambling monitor showing sinus rhythm with v/s WNL. States slight discomfort to left groin area requesting hot pack. No fever or chills present. Will continue to monitor. Call light placed within reach.
[2017-12-29] MEDS: HYDROCODONE/APAP 10-325 MG TABLET PO PRN (20:20)
[2017-12-29 20:32] VITALS: BP 155/74
[2017-12-30 00:13] VITALS: BP 152/68
--- NOTE | 2017-12-30 01:00 | NUR ---
Pt in room asleep in no acute distress. surveillance system monitor showing sinus rhythm. Will continue to monitor. Pt aware to use call light for assistance needed.
[2017-12-30 04:00] VITALS: BP 132/74
--- NOTE | 2017-12-30 06:00 | NUR ---
Pt in room alert awake with no c/o pain at this time. Denies any chest pain or SOB. host coordinator sinus konstantin 45-65 BPM noted. Able to make needs known. States slight discomfort to left groin area but no active bleeding noted. States heating packs helped last night. No fever, chills, or temp. States she still has loose BM but able to use restroom without difficulty. Will continue to monitor.
[2017-12-30] MEDS: PANTOPRAZOLE SODIUM 40 MG TABLET.DR PO SCH (06:14)
[2017-12-30] MEDS: MULTIVITAMINS,THERAPEUTIC TABLET PO SCH (08:12)
[2017-12-30 11:29] VITALS: BP 143/72
[2017-12-30] MEDS: LEVOFLOXACIN 500 MG TABLET PO SCH (12:22)
--- NOTE | 2017-12-30 13:30 | NUR ---
Pt is in no acute distress. Discharge instructions given to pt. PT verbalized understanding. Pt refused to have her groin pix take for update-explained purpose f taking pictures but pt continues to refuse picture to be taken. Pt to f/u with her pmd re vaccinations. Pt refused to have pharmacy education given. Pt states i know what im taking and their side effects. Pt Denies and c/o pain. Pt's iv taken out. pt discharge and walked to public property in front of the hospital. Pt ambulates well and states she will take the bus to where she needs to go.
[2018-01-19] MEDS ORDERED: ACET325T53 PO (14:21)
[2018-01-19] MEDS ORDERED: MAG30ORA PO (14:21)
[2018-01-19] MEDS ORDERED: ASPI-618 PO (14:21)
[2018-01-19] MEDS ORDERED: FAMO-132 PO (14:21)
[2018-01-19] MEDS ORDERED: MULT-24 PO (14:21)
[2018-01-19] MEDS ORDERED: MAGN400C PO (14:21)
[2018-01-19] MEDS ORDERED: SIMV10TA6 PO (14:21)
== END 2017-12-30 13:35 | disposition home or self-care (01) | DRG 720 ==
LOC: ER 11:18 → TELE 14:24
PROVIDERS: ADMIT Internal Medicine; ATTEND Internal Medicine
DX: A41.9 Sepsis, unspecified organism (principal); E43 Unspecified severe protein-calorie malnutrition; G93.41 Metabolic encephalopathy; E87.2 Acidosis; E86.0 Dehydration; E83.42 Hypomagnesemia; D63.8 Anemia in other chronic diseases classified elsewhere; E87.6 Hypokalemia; Z59.0 Homelessness; Z86.73 Personal history of transient ischemic attack (TIA), and cerebral infarction without residual deficits; B19.20 Unspecified viral hepatitis C without hepatic coma; K52.9 Noninfective gastroenteritis and colitis, unspecified; E88.09 Other disorders of plasma-protein metabolism, not elsewhere classified; M62.50 Muscle wasting and atrophy, not elsewhere classified, unspecified site; Z68.24 Body mass index [BMI] 24.0-24.9, adult; Z98.890 Other specified postprocedural states
CPT/HCPCS: 36415; 70030-TC; 71045; 83605; 83735; 84100; 85025; 85730; 87040; 87086; 93005; 97165; A4663; J1956; J3475; J3490; J7030

== ENCOUNTER 2018-01-07 16:08 | Emergency (ER) | payer OTHER ==
[~2018-01-07] VITALS: Ht 167.6 cm; Wt 68.0 kg
[~2018-01-07 16:08] MED LIST changes: -HYDR-3326 PO; -SULF1TAB48 PO
--- NOTE | 2018-01-07 16:35 | NUR ---
MSE COMPLETED, ACI/RX X2 GIVEN. PT AMBULATED W/O DIFF/TOOK ALL BELONGINGS.
[2018-01-07 16:36] VITALS: BP 121/70
[2018-01-19] MEDS ORDERED: SIMV10TA6 PO (14:21)
[2018-01-19] MEDS ORDERED: MAGN400C PO (14:21)
[2018-01-19] MEDS ORDERED: ACET325T53 PO (14:21)
[2018-01-19] MEDS ORDERED: FAMO-132 PO (14:21)
[2018-01-19] MEDS ORDERED: MAG30ORA PO (14:21)
[2018-01-19] MEDS ORDERED: ASPI-618 PO (14:21)
[2018-01-19] MEDS ORDERED: MULT-24 PO (14:21)
== END 2018-01-07 16:38 | disposition home or self-care (01) ==
LOC: ER 16:12
DX: L02.214 Cutaneous abscess of groin (principal); F17.210 Nicotine dependence, cigarettes, uncomplicated; Z86.73 Personal history of transient ischemic attack (TIA), and cerebral infarction without residual deficits; Z59.0 Homelessness; Z79.899 Other long term (current) drug therapy
CPT/HCPCS: A4663

== ENCOUNTER 2018-01-28 12:58 | Emergency (ER) | payer OTHER ==
[~2018-01-28] VITALS: Ht 165.1 cm; Wt 63.5 kg
[~2018-01-28 12:58] MED LIST changes: -ACID1TAB4 PO; +ASPI-618 PO; -DOCU100C36 PO; +FAMO-132 PO; +MAG30ORA PO; +MAGN400C PO; -MAGN400O6 PO; +MULT-24 PO; -MULT1TAB73 PO; -PANT40TA2 PO; +SIMV10TA6 PO
--- NOTE | 2018-01-28 13:19 | NUR ---
Patient discharged to home in stable conditon. Written and verbal after care instructions given. Patient verbalizes understanding of instructions.
== END 2018-01-28 13:20 | disposition home or self-care (01) ==
LOC: ER 13:05 → MERGE 13:05 → ER 13:20
DX: R21 Rash and other nonspecific skin eruption (principal); I10 Essential (primary) hypertension; K21.9 Gastro-esophageal reflux disease without esophagitis; Z79.82 Long term (current) use of aspirin; Z79.899 Other long term (current) drug therapy
CPT/HCPCS: 99283; A4663

== ENCOUNTER 2018-02-16 01:55 | Emergency (ER) | payer OTHER ==
[~2018-02-16] VITALS: Ht 165.1 cm; Wt 63.5 kg
[~2018-02-16 01:55] MED LIST changes: -ASPI-618 PO; -MAG30ORA PO; -MAGN400C PO
--- NOTE | 2018-02-16 02:54 | NUR ---
DR. VIVEROS AT BEDSIDE FOR MSE.
[2018-02-16] MEDS ORDERED: IBUPROFEN 600 MG TABLET PO ONE (03:00)
[2018-02-16] MEDS ORDERED: IBUPROFEN 600 MG TABLET ONE (03:00)
--- NOTE | 2018-02-16 03:05 | NUR ---
Patient discharged to home in stable conditon. Written and verbal after care instructions given. Patient verbalizes understanding of instructions. Patient ambulated out of ER with walker, no acute signs of distress, VSS, all belongings taken.
[2018-02-16 03:11] VITALS: BP 111/84
== END 2018-02-16 03:05 | disposition home or self-care (01) ==
LOC: ER 01:57
DX: G89.29 Other chronic pain (principal); M25.569 Pain in unspecified knee; I10 Essential (primary) hypertension; Z86.73 Personal history of transient ischemic attack (TIA), and cerebral infarction without residual deficits; Z79.899 Other long term (current) drug therapy
CPT/HCPCS: 99282; A4663

== ENCOUNTER 2018-02-16 17:29 | Emergency (ER) | payer OTHER ==
[~2018-02-16] VITALS: Ht 165.1 cm; Wt 68.0 kg
--- NOTE | 2018-02-16 18:52 | NUR ---
Dr Engle at the bedside for MSE.
[2018-02-16] MEDS ORDERED: KETOROLAC TROMETHAMINE 30 MG INJ IM ONE (19:00)
[2018-02-16] MEDS ORDERED: KETOROLAC TROMETHAMINE 30 MG INJ ONE (19:03)
--- NOTE | 2018-02-16 19:07 | NUR ---
Pt out of ER for xray.
--- NOTE | 2018-02-16 19:08 | NUR ---
Report given to Kimberly JUNIOR.
--- NOTE | 2018-02-16 19:49 | NUR ---
Patient discharged to home in stable conditon. Written and verbal after care instructions given. Patient verbalizes understanding of instructions. Pt left ER in steady gait. All belongings with pt. VSS. NAD noted.
[2018-02-16 19:50] VITALS: BP 124/74
== END 2018-02-16 19:51 | disposition home or self-care (01) ==
LOC: ER 17:32
DX: M54.6 Pain in thoracic spine (principal); F17.200 Nicotine dependence, unspecified, uncomplicated; Z86.73 Personal history of transient ischemic attack (TIA), and cerebral infarction without residual deficits; Z88.8 Allergy status to other drugs, medicaments and biological substances; Z79.899 Other long term (current) drug therapy; Z59.0 Homelessness
CPT/HCPCS: 72072; A4663; J1885

== ENCOUNTER 2018-04-23 03:58 | Emergency (ER) | payer OTHER ==
[~2018-04-23] VITALS: Ht 170.2 cm; Wt 70.8 kg
[~2018-04-23 03:58] MED LIST changes: -SIMV10TA6 PO
--- NOTE | 2018-04-23 06:30 | NUR ---
Patient discharged to home in stable conditon. Written and verbal after care instructions given. Patient verbalizes understanding of instructions. Patient able to ambulate unassisted with a steady gait. Patient left with all personal belongings.
[2018-04-23 06:40] VITALS: BP 175/86
== END 2018-04-23 06:39 | disposition home or self-care (01) ==
LOC: ER 04:00
DX: G89.29 Other chronic pain (principal); M79.641 Pain in right hand; M79.642 Pain in left hand; M25.571 Pain in right ankle and joints of right foot; M25.572 Pain in left ankle and joints of left foot; F17.200 Nicotine dependence, unspecified, uncomplicated; Z91.018 Allergy to other foods; Z59.0 Homelessness
CPT/HCPCS: A4663

== ENCOUNTER 2018-05-23 01:56 | Inpatient (IN) | payer OTHER ==
[~2018-05-23] VITALS: Ht 167.6 cm; Wt 67.2 kg
[2018-05-23 02:51] LABS: BASOPHILS # (AUTO) 0.1 K/uL (0.0-8.0); BASOPHILS % (AUTO) 1.1 % (0.0-2.0); EOSINOPHILS % (AUTO) 0.7 % (0.0-7.0); HEMATOCRIT 34.2 % (31.2-41.9); HEMOGLOBIN 11.8 g/dL (10.9-14.3); LYMPHOCYTES # (AUTO) 1.7 K/uL (20.0-40.0); LYMPHOCYTES % (AUTO) 32.1 % (20.5-51.5); MEAN CORPUSCULAR HEMOGLOBIN 28.9 uug (24.7-32.8); MEAN CORPUSCULAR HGB CONC 34 g/dL (32.3-35.6); MEAN CORPUSCULAR VOLUME 84.2 fL (75.5-95.3); MONOCYTES # (AUTO) 0.3 K/uL (2.0-10.0); MONOCYTES % (AUTO) 6.4 % (0.0-11.0); NEUTROPHILS # (AUTO) 3.2 K/uL (1.8-8.9); NEUTROPHILS % (AUTO) 59.7 % (38.5-71.5); PLATELET COUNT (AUTO) 179 K/uL (179-408); RED BLOOD CELL COUNT(AUTO) 4.07 MIL/uL (3.63-4.92); WHITE BLOOD COUNT (AUTO) 5.4 K/uL (3.8-11.8)
[2018-05-23 03:02] LABS: CREATININE 0.8 mg/dL (0.6-1.3)
--- NOTE | 2018-05-23 03:05 | NUR ---
Pt came in from triage c/o gen abd pain, nausea and vomiting since 2199 after eating some pastries and coffee. Pitting edema +2 BLE noted, unknown duration. C/O tenderness to plantar surface of feet when touched. Able to ambulate to BR without walked. Slightly unsteady when getting out of bed. Pt alert, oriented x3. No sob noted. No s/sx of distress noted. Will cont to monitor. Call light within reach. Addendum: 05/23/18 at 0347 by QUINCY Pt presents with general shaking when exerting effort or moving.
[2018-05-23] MEDS ORDERED: ONDANSETRON 4 MG/2 ML VIAL ONE (03:11)
[2018-05-23] MEDS ORDERED: ONDANSETRON IV *ER 4 MG/2 ML VIAL IV ONE (03:15)
[2018-05-23 03:19] LABS: BILIRUBIN,DIRECT 0.2 mg/dL (0.0-0.2); BILIRUBIN,TOTAL 0.9 mg/dL (0.2-1.0); TOTAL PROTEIN, SERUM 8.5 g/dL (6.4-8.2)
--- NOTE | 2018-05-23 03:23 | NUR ---
Taken to CT scan
[2018-05-23] MEDS ORDERED: METRONIDAZOLE 500 MG/NS 100ML 100 ML IV ONE ×2 (03:28→03:30)
[2018-05-23] MEDS ORDERED: LEVOFLOXACIN 750MG/D5W 150 ML IV ONE ×2 (03:29→03:30)
[2018-05-23] MEDS ORDERED: IV NORMAL SALINE 1000 ML BAG IV ONE (03:30)
--- NOTE | 2018-05-23 03:45 | NUR ---
PAUL HASSAN currently talkng to [facility]
--- NOTE | 2018-05-23 03:48 | NUR ---
Pt is back from CT scan
[2018-05-23 04:13] LABS: *BILIRUBIN,URIN NEGATIVE (NEGATIVE); *BLOOD, URINE 1+ (NEGATIVE); *CLARITY,URINE SLIGHTLY CLOUDY (CLEAR); *COLOR,URINE YELLOW (YELLOW); *KETONES,URINE 2+ (NEGATIVE); *PROTEIN,URINE 1+ (NEGATIVE); *UROBILINOGEN,URINE 0.2 E.U./dl (NORMAL); LEUKOCYTE ESTERASE ,URINE NEGATIVE (NEGATIVE); NITRITE, URINE NEGATIVE (NEGATIVE); PH,URINE 8.5 (5.0-8.0); UGLUCOSE NEGATIVE (NEGATIVE)
[2018-05-23] MEDS ORDERED: METOCLOPRAMIDE HCL 10 MG/2 ML VIAL IV ONE (04:15)
[2018-05-23] MEDS ORDERED: IV DEXTROSE 5%-0.9%NS+20MeqKCL 1,000 ML IV ONE ×2 (04:15)
[2018-05-23] MEDS ORDERED: METOCLOPRAMIDE HCL 10 MG/2 ML VIAL ONE (04:17)
[2018-05-23 04:29] LABS: BACTERIA,URINE NONE SEEN /HPF (NONE SEEN); SQUAMOUS EPITHELIAL CELL,UR MODERATE /HPF (NONE SEEN); URINE AMORPHOUS PHOSPHATES MODERATE /HPF; WBC,URINE 0-3 /HPF (0-3)
[2018-05-23] MEDS ORDERED: MORPHINE SULFATE 4 MG/1 ML DISP.SYRIN ONE (04:41)
[2018-05-23] MEDS ORDERED: FAMO-132 PO (04:43)
[2018-05-23] MEDS ORDERED: MORPHINE SULFATE 4 MG/1 ML DISP.SYRIN IV ONE (04:45)
--- NOTE | 2018-05-23 04:55 | NUR ---
Report given SANDI Ludwig
[2018-05-23 05:00] VITALS: BP 174/92
--- NOTE | 2018-05-23 05:24 | NUR ---
Pt. admitted to [facility] , under care of Dr Barboza. Belongs List completed
--- NOTE | 2018-05-23 05:26 | NUR ---
RECEIVED PT VIA GURNEY FROM ER. PT SHOWS NO SIGNS OF DISTRESS. IV INTACT AND PATENT. BELONGING LIST DONE. ADMISSION PROCESS AND CARE PLAN INITIATED. HALFWAY ASSESSMENT DONE. SAFETY AND COMFORT PROVIDED. WILL CONTINUE TO MONITOR.
[2018-05-23] MEDS ORDERED: INFLUENZA VACCINE 2018-2019 0.5 ML DISP.SYRIN IM ONE ×2 (06:45→07:15)
[2018-05-23] MEDS ORDERED: PNEUMOCOCCAL 23-VAL P-SAC VAC 0.5 ML VIAL IM ONE (06:45)
--- NOTE | 2018-05-23 06:58 | NUR ---
PT SHOWS NO SIGNS OF DISTRESS. IV INTACT AND PATENT. CALLED DR. ARMEN PRUETT TO NOTIFY REGARDING PT BP OF 174/92. AND ASK ABOUT THE DIET OF THE PT. DR. FITZGERALD ORDERED REGULAR DIET FOR THE PT.SAFETY AND COMFORT PROVIDED. WILL ENDORSE TO DAYSHIFT NURSE FOR CONTINUITY OF CARE.
[2018-05-23] MEDS ORDERED: HYDROCODONE/APAP 10-325 MG TABLET PO PRN (07:00)
[2018-05-23] MEDS ORDERED: Z GUARD REMEDY PASTE 57 GM TUBE TOP PRN (07:00)
[2018-05-23] MEDS ORDERED: MAGNESIUM HYDROXIDE 30 ML LIQUID UDC PO PRN (07:00)
[2018-05-23] MEDS ORDERED: ZOLPIDEM 5 MG TABLET PO PRN (07:00)
[2018-05-23] MEDS ORDERED: ONDANSETRON 4 MG/2 ML VIAL IV PRN (07:00)
[2018-05-23] MEDS ORDERED: HYDROCODONE/APAP 5-325MG TABLET PO PRN (07:00)
[2018-05-23] MEDS ORDERED: ACETAMINOPHEN 325 MG TABLET PO PRN (07:00)
--- NOTE | 2018-05-23 07:20 | NUR ---
Received report from security shift manager nurse, patient in bed awake/alert, no distress noted at this time. Patient requested to ambulate to restroom, patients gait is unsteady. Assisted patient to restroom and back to bed. Call light in reach, bed in low position, side rails up x2.
[2018-05-23] MEDS: PANTOPRAZOLE SODIUM 40 MG TABLET.DR PO SCH (08:34)
[2018-05-23 10:49] VITALS: BP 148/83
[2018-05-23 11:16] VITALS: BP 156/86
[2018-05-23] MEDS: IV NS 1000 ML 1,000 ML IV PRN (14:44)
[2018-05-23] MEDS: METRONIDAZOLE 500 MG/NS 100ML 500 MG in PREMIXED 1 EACH IV SCH ×2 (14:44→21:51)
[2018-05-23 15:30] VITALS: BP 165/88
[2018-05-23 17:55] LABS: IRON, SERUM 207 ug/dL (50-175)
--- NOTE | 2018-05-23 19:04 | NUR ---
PATIENT HAS BEEN COMPLIANT WITH ARE, ALL NEEDS MET. NO DISTRESS NOTED AT THIS TIME, BED IN LOW POSITION, SIDE RAILS UP X2, BED ALARM ON.
--- NOTE | 2018-05-23 20:00 | NUR ---
RECEIVED PATIENT ASLEEP IN BED. EASILY AROUSABLE. NO C/O PAIN OR DISCOMFORT. NO RESP. DISTRESS NOTED. IVF INFUSING WELL TO LEFT FA #20 GAUGE. VS WNL. CALL LIGHT IN REACH. ALL NEEDS ATTENDED. WILL CONTINUE TO MONITOR AND ASSESS.
[2018-05-23] MEDS: LEVOFLOXACIN 750MG/D5W 750 MG in PREMIXED 1 EACH IV SCH (20:52)
[2018-05-23 21:09] VITALS: BP 139/80
[2018-05-23] MEDS ORDERED: hydrALAZINE HCL 20 MG/1 ML VIAL IV PRN (22:45)
[2018-05-24] MEDS: MORPHINE SULFATE 4 MG/1 ML DISP.SYRIN IV PRN ×2 (04:49→20:23)
[2018-05-24] MEDS: METRONIDAZOLE 500 MG/NS 100ML 500 MG in PREMIXED 1 EACH IV SCH ×3 (05:01→21:59)
[2018-05-24 05:22] VITALS: BP 150/81
[2018-05-24] MEDS: IV NS 1000 ML 1,000 ML IV PRN (05:57)
[2018-05-24] MEDS: PANTOPRAZOLE SODIUM 40 MG TABLET.DR PO SCH (06:00)
[2018-05-24 06:17] LABS: BASOPHILS % (AUTO) 0.2 % (0.0-2.0); EOSINOPHILS # (AUTO) 0.1 K/uL (0.0-0.7); EOSINOPHILS % (AUTO) 1.7 % (0.0-7.0); HEMATOCRIT 32.2 % (31.2-41.9); HEMOGLOBIN 10.9 g/dL (10.9-14.3); LYMPHOCYTES # (AUTO) 1.2 K/uL (20.0-40.0); LYMPHOCYTES % (AUTO) 28.5 % (20.5-51.5); MEAN CORPUSCULAR HEMOGLOBIN 28.7 uug (24.7-32.8); MEAN CORPUSCULAR HGB CONC 34 g/dL (32.3-35.6); MEAN CORPUSCULAR VOLUME 84.6 fL (75.5-95.3); MONOCYTES # (AUTO) 0.4 K/uL (2.0-10.0); MONOCYTES % (AUTO) 10.1 % (0.0-11.0); NEUTROPHILS # (AUTO) 2.6 K/uL (1.8-8.9); NEUTROPHILS % (AUTO) 59.5 % (38.5-71.5); PLATELET COUNT (AUTO) 121 K/uL (179-408); RED BLOOD CELL COUNT(AUTO) 3.81 MIL/uL (3.63-4.92); WHITE BLOOD COUNT (AUTO) 4.3 K/uL (3.8-11.8)
--- NOTE | 2018-05-24 06:20 | NUR ---
PATIENT ASLEEP IN BED. SLEPT WELL THROUGHOUT THE NIGHT. VSS. IVF INFUSING WELL. CALL LIGHT IN REACH. ALL NEEDS ATTENDED. WILL CONTINUE TO MONITOR.
[2018-05-24 06:29] LABS: CREATININE 0.7 mg/dL (0.6-1.3); PHOSPHOROUS 2.3 mg/dL (2.5-4.9)
[2018-05-24 06:34] LABS: MAGNESIUM 1.2 mg/dL (1.8-2.4)
[2018-05-24 06:39] LABS: THYROID STIMULATING HORMONE 1.974 mIU/mL (0.358-3.740)
[2018-05-24] MEDS ORDERED: MAGNESIUM SULFATE 3 GM in IV DEXTROSE 5% 50 ML IV ONE (06:45)
--- NOTE | 2018-05-24 07:30 | NUR ---
RECEIVED REPORT FROM PLATE SLITTER AND INSPECTOR NURSE, PATIENT IN BED ASLEEP, NO DISTRESS NOTED AT THIS TIME, BED IN LOW POSITION, SIDE RAILS UP X2, BED ALARM ON.
[2018-05-24] MEDS: MAGNESIUM SULFATE/D5W 100 ML IV SCH ×3 (08:30→10:50)
[2018-05-24] MEDS: LISINOPRIL 5 MG TABLET PO SCH ×2 (09:40→20:15)
[2018-05-24 11:30] VITALS: BP 116/57
[2018-05-24] MEDS ORDERED: POTASSIUM CHLORIDE 20 MEQ TAB.PRT.SR PO ONE (12:00)
[2018-05-24 15:10] VITALS: BP 146/63
[2018-05-24 16:21] LABS: CREATININE 0.8 mg/dL (0.6-1.3); MAGNESIUM 2.1 mg/dL (1.8-2.4); POTASSIUM 3.4 mmol/L (3.5-5.1)
--- NOTE | 2018-05-24 19:13 | NUR ---
Patient has been cooperative with care, no distress noted throughout shift. Patient in bed, no distress noted at this time, bed in low position, side rails up x2.
[2018-05-24] MEDS: LEVOFLOXACIN 750MG/D5W 750 MG in PREMIXED 1 EACH IV SCH (20:12)
[2018-05-24 20:22] VITALS: BP 119/62
--- NOTE | 2018-05-24 21:00 | NUR ---
RECEIVED PATIENT ALERT ORIENTED, NO SOB NO CHEST PAIN NOTED, PATIENT MEDICATED FOR PAIN EARLIER. PATIENT ON CLEAR LIQUID DIET TOLERATE WELL, NO NAUSEA NO VOMITING NOTED, ASSISTED WITH TOILETING, CONT TO MONITOR.
[2018-05-25] MEDS: IV NS 1000 ML 1,000 ML IV PRN ×2 (00:29→15:06)
[2018-05-25] MEDS: MORPHINE SULFATE 4 MG/1 ML DISP.SYRIN IV PRN ×3 (01:36→21:57)
[2018-05-25 04:48] VITALS: BP 145/70
[2018-05-25] MEDS: METRONIDAZOLE 500 MG/NS 100ML 500 MG in PREMIXED 1 EACH IV SCH ×3 (05:44→21:56)
[2018-05-25] MEDS: PANTOPRAZOLE SODIUM 40 MG TABLET.DR PO SCH (06:01)
[2018-05-25 06:19] LABS: BASOPHILS % (AUTO) 0.2 % (0.0-2.0); EOSINOPHILS # (AUTO) 0.1 K/uL (0.0-0.7); EOSINOPHILS % (AUTO) 2.2 % (0.0-7.0); HEMATOCRIT 31.7 % (31.2-41.9); HEMOGLOBIN 10.8 g/dL (10.9-14.3); LYMPHOCYTES # (AUTO) 2.1 K/uL (20.0-40.0); LYMPHOCYTES % (AUTO) 46.9 % (20.5-51.5); MEAN CORPUSCULAR HEMOGLOBIN 28.4 uug (24.7-32.8); MEAN CORPUSCULAR HGB CONC 34 g/dL (32.3-35.6); MEAN CORPUSCULAR VOLUME 83.5 fL (75.5-95.3); MONOCYTES # (AUTO) 0.4 K/uL (2.0-10.0); NEUTROPHILS # (AUTO) 1.9 K/uL (1.8-8.9); NEUTROPHILS % (AUTO) 42.7 % (38.5-71.5); PLATELET COUNT (AUTO) 121 K/uL (179-408); WHITE BLOOD COUNT (AUTO) 4.4 K/uL (3.8-11.8)
[2018-05-25 06:28] LABS: CREATININE 0.7 mg/dL (0.6-1.3); MAGNESIUM 1.7 mg/dL (1.8-2.4); PHOSPHOROUS 2.3 mg/dL (2.5-4.9); POTASSIUM 3.4 mmol/L (3.5-5.1)
--- NOTE | 2018-05-25 06:43 | NUR ---
PATIENT SLEPT MOST OF THE NIGHT, NO SOB NO CHEST PAIN, NOTED, CONT ON PAIN MANAGEMENT DUE TO PAIN OF BACK AND ABDOMEN, HAD 2 LBM ON THIS SHIFT, NO FURTHER EPISODES OF VOMITING. TOLERATE CLEAR LIQUID DIET.
[2018-05-25] MEDS: LISINOPRIL 5 MG TABLET PO SCH ×2 (08:40→20:14)
--- NOTE | 2018-05-25 08:42 | NUR ---
AWAKE ALERT AND ORIENTED STATED THAT SHE WAS TIRED OF THE CLEAR LIQUIDS DIET WANTS REGULAR FOOD WILL CALL AND LEAVE A MESSAGE FOR THE PROVIDER BLOOD PRESSURE AT THIS TIME IS 170/83 WITH HEART RATE OF 72 PATIENT IS ASSYMPTOMATIC AT THIS TIME DUE BLOOD PRESSURE MEDICATIONS GIVEN AT THIS TIME WILL RECHECK BLOOD PRESSURE IN AN HOUR.
--- NOTE | 2018-05-25 09:45 | NUR ---
BLOOD PRESSURE RECHECKED AND ITS 154/94 RESTING AT THIS TIME WILL CONTINUE TO OBSERVE.
[2018-05-25 09:55] VITALS: BP 154/94
[2018-05-25 11:30] VITALS: BP 161/95
--- NOTE | 2018-05-25 12:06 | NUR ---
CALLED AND SPOKE WITH MAYKEL CHAKRABORTY POTASSIUM IS 3.4 AND MAG IS 1.7 WITH NEW ORDERS ALSO AWARE THAT PATIENT WANTS TO EAT REGULAR FOOD STATED OKAY WILL NOTIFY GI
[2018-05-25] MEDS ORDERED: MAGNESIUM SULFATE/D5W 100 ML IV SCH (12:15)
[2018-05-25] MEDS ORDERED: POTASSIUM CHLORIDE 10 MEQ TAB.PRT.SR PO ONE (12:15)
--- NOTE | 2018-05-25 13:00 | NUR ---
[employer] LAUNDRY WORKER NOTIFIED THAT PATIENT IS REQUESTING TO EAT REGULAR FOOD OPPOSED TO THE CLEAR LIQUIDS DIET WITH NEW ORDERS AND NOTED DIETARY NOTIFIED.
--- NOTE | 2018-05-25 14:19 | NUR ---
MAYKEL TITLE SUPERVISOR HERE AND SEEN PATIENT WITH NEW ORDERS AND NOTED.
[2018-05-25 15:08] VITALS: BP 133/73
[2018-05-25] MEDS ORDERED: NEUTRA PHOS PACKET PO ONE (15:15)
--- NOTE | 2018-05-25 18:08 | NUR ---
TOLERATED DIET ORDERED DENIES ABDOMINAL PAIN NO NAUSEA OR VOMITING AT THIS TIME.
[2018-05-25 19:00] VITALS: BP 135/64
--- NOTE | 2018-05-25 19:30 | NUR ---
Patient stable at start of shift. Lying comfortably with no acute distress. A/Ox4 able to make all needs known. Left forearm 22G IV site running with NS at 75cc/hr. No signs of infiltration noted. Vital signs within range. On ATB therapy. Stool sample needed per MD order. Patient denying pain & SOB at start of shift. Call light in reach. Will continue to monitor through shift.
[2018-05-25] MEDS: LEVOFLOXACIN 750MG/D5W 750 MG in PREMIXED 1 EACH IV SCH (20:15)
[2018-05-26 04:00] VITALS: BP 158/79
[2018-05-26] MEDS: METRONIDAZOLE 500 MG/NS 100ML 500 MG in PREMIXED 1 EACH IV SCH ×2 (05:11→13:07)
[2018-05-26] MEDS: PANTOPRAZOLE SODIUM 40 MG TABLET.DR PO SCH (06:13)
--- NOTE | 2018-05-26 06:31 | NUR ---
Patient remained stable through shift. Vital signs within range. Compliant & cooperative with care. All needs attended to promptly. Pain management provided. Medications administered as ordered. Safety measures implemented. Call light within reach. Will endorse to day shift nurse.
[2018-05-26 06:34] LABS: BASOPHILS % (AUTO) 0.3 % (0.0-2.0); CREATININE 0.6 mg/dL (0.6-1.3); EOSINOPHILS # (AUTO) 0.1 K/uL (0.0-0.7); HEMATOCRIT 29.7 % (31.2-41.9); HEMOGLOBIN 10.3 g/dL (10.9-14.3); LYMPHOCYTES # (AUTO) 1.9 K/uL (20.0-40.0); LYMPHOCYTES % (AUTO) 43.9 % (20.5-51.5); MAGNESIUM 1.5 mg/dL (1.8-2.4); MEAN CORPUSCULAR HEMOGLOBIN 29.4 uug (24.7-32.8); MEAN CORPUSCULAR HGB CONC 35 g/dL (32.3-35.6); MEAN CORPUSCULAR VOLUME 84.5 fL (75.5-95.3); MONOCYTES # (AUTO) 0.4 K/uL (2.0-10.0); NEUTROPHILS # (AUTO) 1.9 K/uL (1.8-8.9); NEUTROPHILS % (AUTO) 44.8 % (38.5-71.5); PHOSPHOROUS 3.5 mg/dL (2.5-4.9); PLATELET COUNT (AUTO) 113 K/uL (179-408); POTASSIUM 3.4 mmol/L (3.5-5.1); RED BLOOD CELL COUNT(AUTO) 3.51 MIL/uL (3.63-4.92); WHITE BLOOD COUNT (AUTO) 4.4 K/uL (3.8-11.8)
--- NOTE | 2018-05-26 07:56 | NUR ---
RECEIVED PATIENT AWAKE ALERT AND ORIENTED STATED FEELS MUCH BETTER TODAY DENIES PAIN OR DISCOMFORTS AT THIS TIME.REMAIN ON IVF ORDERED WITH NO S/S OF INFILTERATION AT THIS TIME.WILL CONTINUE TO OBSERVE NOT IN DISTRESS AT THIS TIME.
[2018-05-26] MEDS: IV NS 1000 ML 1,000 ML IV PRN (08:32)
[2018-05-26] MEDS: LISINOPRIL 5 MG TABLET PO SCH (08:34)
[2018-05-26] MEDS ORDERED: LISI-607 PO (11:02)
[2018-05-26] MEDS ORDERED: METR500T PO (11:14)
[2018-05-26] MEDS ORDERED: LEVO750T21 PO (11:14)
--- NOTE | 2018-05-26 11:23 | NUR ---
PATIENT SEEN BY MAYKEL WITH ORDER TO DISCHARGE PATIENT TODAY AND SHE IS ALSO AWARE THAT HER POTASSIUM LEVEL IS 3.4 AND MAG 1.5 STATED OKAY WILL REPLACE THESE ELECTROLYTES.THE JOURNALISTS AND OTHER WRITERS SEWER BUILDER STATED THAT SHE IS STILL WAITING FOR THE PATIENTS INSURANCE COMPANY [facility] TO APPROVE AND CONFIRM WHICH SNF.
[2018-05-26 11:29] VITALS: BP 126/72
[2018-05-26] MEDS ORDERED: MAGNESIUM OXIDE 400 MG TABLET PO ONE (11:30)
[2018-05-26] MEDS ORDERED: POTASSIUM CHLORIDE 10 MEQ TAB.PRT.SR PO ONE (11:30)
--- NOTE | 2018-05-26 13:08 | NUR ---
DR OCHOA HERE TO SEE PATIENT AWARE THAT PATIENT REQUESTED ATIVAN TODAY FOR ANXIETY WITH NO NEW ORDERS AT THIS TIME. Addendum: 05/26/18 at 1312 by MAYE ARELLANO RN ERROR WRONG PATIENT USER ERROR
--- NOTE | 2018-05-26 13:12 | NUR ---
CALLED SANTANA CLARKE TO GIVE REPORT SPOKE WITH LISSET STATED UNABLE TO GET REPORT AT THIS TIME WILL CALL BACK CONTROL OFFICER AWARE.
--- NOTE | 2018-05-26 14:00 | NUR ---
CALLED SANTANA BUSH AND REPORT GIVEN TO RODOLFO FOR CONTINUING CARE PATIENT WILL CONTINUE ON ANTIBIOTICS ORDERED FOR 7 MORE DAYS AND PATIENT TO FOLLOW UP WITH A HAND TURNER FOR ELEVATED IRON STORES.PATIENT MAY NEED LIVER BIOPSY ALSO FOLLOW UP WITH GASTRO IF PAIN REOCCURS FOR EGD/COLONOSCOPY AND HE EXPRESSED UNDERSTANDING.
[2018-05-26 15:28] VITALS: BP 147/80
--- NOTE | 2018-05-26 16:40 | NUR ---
PATIENT DISCHARGED TO [facility] PICKED UP BY [facility] IN SATISFACTORY CONDITION WITH DISCHARGE INSTRUCTIONS AND ALL OF HER PERSONAL BELONGINGS INCLUDING HER W/CHAIR .
== END 2018-05-26 16:37 | DRG 371 ==
LOC: ER 02:00 → TELE 05:00 → MED 15:46
PROVIDERS: ATTEND Registered Nurse
DX: A04.9 Bacterial intestinal infection, unspecified (principal); G93.41 Metabolic encephalopathy; K57.32 Diverticulitis of large intestine without perforation or abscess without bleeding; E87.2 Acidosis; I69.398 Other sequelae of cerebral infarction; R26.89 Other abnormalities of gait and mobility; K76.0 Fatty (change of) liver, not elsewhere classified; Z59.0 Homelessness; K80.20 Calculus of gallbladder without cholecystitis without obstruction; K42.9 Umbilical hernia without obstruction or gangrene; F17.210 Nicotine dependence, cigarettes, uncomplicated; F10.10 Alcohol abuse, uncomplicated; Y90.9 Presence of alcohol in blood, level not specified; E83.42 Hypomagnesemia; E16.2 Hypoglycemia, unspecified; E87.6 Hypokalemia; I11.9 Hypertensive heart disease without heart failure; B19.20 Unspecified viral hepatitis C without hepatic coma; Z91.19 Patient's noncompliance with other medical treatment and regimen; D75.9 Disease of blood and blood-forming organs, unspecified; E83.119 Hemochromatosis, unspecified
CPT/HCPCS: 36415; 70030-TC; 71045; 76700; 83550; 83605; 83690; 83735; 84100; 84443; 85025; 85730; 86625; 87040; 87046; 87086; 87177; 89055; 93005; 97116; 97530; A4663; G0378; J0360; J1956; J2270; J2405; J2765; J3475; J3490; J7030

== ENCOUNTER 2018-09-24 23:07 | Emergency (ER) | payer OTHER ==
[~2018-09-24] VITALS: Ht 165.1 cm; Wt 59.0 kg
[~2018-09-24 23:07] MED LIST changes: -ACET325T53 PO; +ALBU18HF2 INH; +CYAN10009 PO; -FAMO-132 PO; +FLUC150T PO; +IBUP-1957 PO; +LISI-607 PO; -MULT-24 PO
--- NOTE | 2018-09-24 23:17 | NUR ---
Patient BIB EMS, [facility] for c/o "feeling like hands are cold". Patient denies being homeless and states she lives near the [facility]. Patient denies acute distress or other discomfort at this time. No CP/SOB/N/V/D
--- NOTE | 2018-09-24 23:57 | NUR ---
Patient in bed, no acute distress noted. VSS. All patient needs attended and met. Call light is within reach. VSS
--- NOTE | 2018-09-25 00:23 | NUR ---
Patient discharged to home in stable conditon. Written and verbal after care instructions given. Patient verbalizes understanding of instructions. All belongings with patient. Patient states she is not homeless, patient was given list of shelters for good measure. Patient refused a meal, transportation, clothing at this time. Patient states " I aint homeless, quit trying to make me seem homeless".
[2018-09-25 00:25] VITALS: BP 118/80
== END 2018-09-25 00:26 | disposition home or self-care (01) ==
LOC: ER 23:08
DX: G89.29 Other chronic pain (principal); M79.671 Pain in right foot; M79.672 Pain in left foot; M79.641 Pain in right hand; M79.642 Pain in left hand; F17.200 Nicotine dependence, unspecified, uncomplicated; Z91.018 Allergy to other foods; Z59.0 Homelessness; Z79.1 Long term (current) use of non-steroidal anti-inflammatories (NSAID); Z79.899 Other long term (current) drug therapy
CPT/HCPCS: A4663

== ENCOUNTER 2018-09-28 04:00 | Inpatient (IN) | payer OTHER ==
[~2018-09-28] VITALS: Ht 162.6 cm; Wt 65.4 kg
[2018-09-28] VITALS (18 sets, daily range): BP systolic 71–174; BP diastolic 36–95
--- NOTE | 2018-09-28 04:10 | NUR ---
Pt. BIB [facility] for c/o seizure, pt. states she "had seizure around 2 or 3pm and has history of seizure" states she did not hit her head, bedrails padded for pt., safety, Addendum: 09/28/18 at 0621 by BKNAALESHA Pt. states seizure occurred at 2 or 3AM not PM
[2018-09-28 04:37] LABS: BASOPHILS % (AUTO) 0.8 % (0.0-2.0); EOSINOPHILS % (AUTO) 0.8 % (0.0-7.0); HEMATOCRIT 32.7 % (31.2-41.9); LYMPHOCYTES # (AUTO) 1.7 K/uL (20.0-40.0); LYMPHOCYTES % (AUTO) 37.5 % (20.5-51.5); MEAN CORPUSCULAR HEMOGLOBIN 27.7 uug (24.7-32.8); MEAN CORPUSCULAR HGB CONC 34 g/dL (32.3-35.6); MEAN CORPUSCULAR VOLUME 82.1 fL (75.5-95.3); MONOCYTES # (AUTO) 0.3 K/uL (2.0-10.0); MONOCYTES % (AUTO) 6.4 % (0.0-11.0); NEUTROPHILS # (AUTO) 2.5 K/uL (1.8-8.9); NEUTROPHILS % (AUTO) 54.5 % (38.5-71.5); PLATELET COUNT (AUTO) 105 K/uL (179-408); RED BLOOD CELL COUNT(AUTO) 3.98 MIL/uL (3.63-4.92); WHITE BLOOD COUNT (AUTO) 4.6 K/uL (3.8-11.8)
--- NOTE | 2018-09-28 04:40 | NUR ---
Pt. reported feeling like she was going to have a seizure then had jerking movements of entire body for less than 10 seconds, pt. immediately responsive and obeys commands after, NAD - Dr. Dove made aware,
--- NOTE | 2018-09-28 05:00 | NUR ---
Pt. taken off unit for CT via stretcher
[2018-09-28 05:03] LABS: BILIRUBIN,DIRECT 0.1 mg/dL (0.0-0.2); BILIRUBIN,TOTAL 0.3 mg/dL (0.2-1.0); CREATININE 0.9 mg/dL (0.6-1.3); POTASSIUM 3.5 mmol/L (3.5-5.1); TOTAL PROTEIN, SERUM 7.9 g/dL (6.4-8.2)
--- NOTE | 2018-09-28 05:19 | NUR ---
Pt. back on unit from CT
[2018-09-28] MEDS ORDERED: LEVETIRACETAM IV 500 MG in IV DEXTROSE 5% 100 ML IV ONE (05:45)
[2018-09-28] MEDS ORDERED: LEVETIRACETAM 500 MG/5 ML VIAL IV ONE (05:48)
--- NOTE | 2018-09-28 06:06 | NUR ---
Dr. Mejia neurologist called, message left for consult
--- NOTE | 2018-09-28 06:10 | NUR ---
Pt. observed jerking in bed for less than 10 sec HR elevated to 171 during episode then returned to her baseline of 80s
[2018-09-28] MEDS ORDERED: LORAZEPAM 2 MG/1 ML VIAL ONE (06:14)
--- NOTE | 2018-09-28 06:18 | NUR ---
Rad. tech. at bedside for xray
--- NOTE | 2018-09-28 06:19 | NUR ---
Called Stephanie for CCU bed,
--- NOTE | 2018-09-28 06:24 | NUR ---
Dr. Dove on phone with Dr. Mejia
[2018-09-28] MEDS ORDERED: LORAZEPAM 2 MG/1 ML VIAL IV ONE (06:30)
[2018-09-28] MEDS ORDERED: IOHEXOL 350 100 ML INFUS..BTL ONE (06:52)
[2018-09-28] MEDS ORDERED: IV NORMAL SALINE 250 ML IV ONE (06:52)
[2018-09-28] MEDS ORDERED: SWABABLE VALVE TRANSFER SET EA MC ONE (06:52)
[2018-09-28] MEDS ORDERED: NORMAL SALINE FLUSH 10 ML DISP.SYRIN ONE (06:52)
--- NOTE | 2018-09-28 06:55 | NUR ---
Pt. resting in bed w/ eyes closed,
--- NOTE | 2018-09-28 06:59 | NUR ---
Pt. taken off unit for CT via stretcher,
--- NOTE | 2018-09-28 06:59 | NUR ---
Went down w/ pt. for CTA,
--- NOTE | 2018-09-28 07:25 | NUR ---
Pt. back in room, report given to dayseze Espinoza, all care endorsed,
--- NOTE | 2018-09-28 08:06 | NUR ---
Full telephone SBAR report given to SANDI Aj ICU 2nd floor.
--- NOTE | 2018-09-28 08:26 | NUR ---
Call made to Dr. Mejia to speak with Dr. Liang. Awaiting return call.
--- NOTE | 2018-09-28 08:54 | NUR ---
Dr. Liang on the telephone with Dr. Mejia.
--- NOTE | 2018-09-28 09:01 | NUR ---
Dr. Liang on the telephone with CYTOGENETIC TECHNICIAN Mesfin Gar.
--- NOTE | 2018-09-28 09:25 | NUR ---
Brought pt up to 2nd floor CCU-1. Pt stable and nad noted upon transfer.
--- NOTE | 2018-09-28 09:25 | NUR ---
patient brought to room from ER on the monitor. Patient is wake and responding. Generalized weakness and complaining of pain. Mesfin Gar in to see patient at this time as well. patient is drowsy but can answer questions.
[2018-09-28] MEDS ORDERED: ACETAMINOPHEN 325 MG TABLET PO PRN (09:45)
[2018-09-28] MEDS ORDERED: ALBUTEROL SULFATE 8 GM HFA.AER.AD INH PRN (10:00)
[2018-09-28] MEDS ORDERED: LABETALOL HCL 100 MG/20 ML VIAL IV PRN (10:15)
[2018-09-28] MEDS ORDERED: hydrALAZINE HCL 20 MG/1 ML VIAL IV PRN ×2 (10:30→16:30)
[2018-09-28] MEDS ORDERED: ALBUTEROL SULFATE 2.5 MG/3 ML NEBU NEB PRN (10:30)
[2018-09-28 10:57] LABS: THYROID STIMULATING HORMONE 1.156 mIU/mL (0.358-3.740)
--- NOTE | 2018-09-28 11:21 | NUR ---
TEXTED DR. FORTUNE FOR MRI APPROVAL.
--- NOTE | 2018-09-28 11:25 | NUR ---
ON HOLD FOR NOW PER DR. FORTUNE, HE WILL LET US KNOW.
[2018-09-28] MEDS ORDERED: BLOOD SUGAR DIAGNOSTIC 1 EACH STRIP VI SCH (11:30)
--- NOTE | 2018-09-28 11:40 | NUR ---
patient taken down to repeat CT scan. patient transported on monitor, traveled and back in room all stable.
[2018-09-28] MEDS ORDERED: LORAZEPAM 2 MG/1 ML VIAL IV PRN (11:45)
[2018-09-28] MEDS ORDERED: THIAMINE HCL INJ 100 MG in IV DEXTROSE 5% 50 ML IV SCH (11:45)
[2018-09-28] MEDS: IV NS 1000 ML 1,000 ML IV PRN ×2 (11:47→23:02)
[2018-09-28] MEDS: BLOOD SUGAR DIAGNOSTIC 1 EACH STRIP VI SCH ×2 (11:53→17:19)
[2018-09-28] MEDS: MORPHINE SULFATE 2 MG/1 ML DISP.SYRIN IV PRN (11:53)
[2018-09-28] MEDS: NIMODIPINE 30 MG CAPSULE PO SCH ×4 (11:57→19:49)
--- NOTE | 2018-09-28 12:00 | NUR ---
DOCTOR KYLIE IN THE ROOM TO SEE PATIENT FOR NEW CONSULTATION.
--- NOTE | 2018-09-28 12:11 | NUR ---
PATIENT HAVING US OF ABDOMEN AT BEDSIDE AT THIS TIME.
--- NOTE | 2018-09-28 14:00 | NUR ---
MAY INSERT DANIEL PER CERAMIC TILE INSTALLER DUE TO US OF ABDOMEN SHOWED FULL BLADDER PATIENT HAS GENERALIZED WEAKNESS AND HIGH RISK FOR FALL. INSERTED AND OBTAINED 500ML AT INSERTION
[2018-09-28 15:23] LABS: *BILIRUBIN,URIN NEGATIVE (NEGATIVE); *BLOOD, URINE Trace-intact (NEGATIVE); *CLARITY,URINE SLIGHTLY CLOUDY (CLEAR); *COLOR,URINE YELLOW (YELLOW); *KETONES,URINE NEGATIVE (NEGATIVE); *UROBILINOGEN,URINE 0.2 E.U./dl (NORMAL); LEUKOCYTE ESTERASE ,URINE NEGATIVE (NEGATIVE); NITRITE, URINE NEGATIVE (NEGATIVE); UGLUCOSE NEGATIVE (NEGATIVE)
[2018-09-28 15:37] LABS: *AMPHETAMINE, URINE NEGATIVE (NEGATIVE); *BARBITURATE, URINE NEGATIVE (NEGATIVE); *CANNABINOID, URINE NEGATIVE (NEGATIVE); *COCCAINE, URINE NEGATIVE (NEGATIVE); *OPIATE, URINE NEGATIVE (NEGATIVE); *PHENCYCLIDINE SCREEN,URINE NEGATIVE (NEGATIVE)
[2018-09-28 15:40] LABS: BACTERIA,URINE NONE SEEN /HPF (NONE SEEN); RBC,URINE 0-3 /HPF (0-3); SQUAMOUS EPITHELIAL CELL,UR FEW /HPF (NONE SEEN); WBC,URINE 0-3 /HPF (0-3)
--- NOTE | 2018-09-28 16:22 | NUR ---
500ML BOLUS DUE TO LOW BP. POST PRN HYDRALAZINE GIVEN WITH PARAMETERS. DOSAGE TO BE DECREASED AND ADJUSTED PER EWA COMBATANT DIVER OFFICER AND BOLUS STARTED.
[2018-09-28] MEDS: ONDANSETRON 4 MG/2 ML VIAL IV PRN (16:34)
[2018-09-28] MEDS ORDERED: IV NORMAL SALINE 500 ML IV ONE (16:45)
[2018-09-28] MEDS: LEVETIRACETAM IV 500 MG in IV DEXTROSE 5% 100 ML IV SCH (21:22)
[2018-09-29] VITALS (22 sets, daily range): BP systolic 92–139; BP diastolic 48–78
[2018-09-29] MEDS: NIMODIPINE 30 MG CAPSULE PO SCH ×6 (00:07→19:39)
[2018-09-29] MEDS: BLOOD SUGAR DIAGNOSTIC 1 EACH STRIP VI SCH ×4 (00:16→17:14)
[2018-09-29] MEDS: MORPHINE SULFATE 2 MG/1 ML DISP.SYRIN IV PRN ×4 (00:58→19:44)
--- NOTE | 2018-09-29 06:00 | NUR ---
See eMar / medication / pain.
[2018-09-29 07:16] LABS: BASOPHILS % (AUTO) 0.9 % (0.0-2.0); EOSINOPHILS # (AUTO) 0.1 K/uL (0.0-0.7); EOSINOPHILS % (AUTO) 1.1 % (0.0-7.0); HEMATOCRIT 31.9 % (31.2-41.9); HEMOGLOBIN 10.6 g/dL (10.9-14.3); LYMPHOCYTES # (AUTO) 1.6 K/uL (20.0-40.0); LYMPHOCYTES % (AUTO) 31.1 % (20.5-51.5); MEAN CORPUSCULAR HEMOGLOBIN 27.3 uug (24.7-32.8); MEAN CORPUSCULAR HGB CONC 33 g/dL (32.3-35.6); MONOCYTES # (AUTO) 0.3 K/uL (2.0-10.0); MONOCYTES % (AUTO) 6.7 % (0.0-11.0); NEUTROPHILS # (AUTO) 3.1 K/uL (1.8-8.9); NEUTROPHILS % (AUTO) 60.2 % (38.5-71.5); PLATELET COUNT (AUTO) 91 K/uL (179-408); RED BLOOD CELL COUNT(AUTO) 3.89 MIL/uL (3.63-4.92); WHITE BLOOD COUNT (AUTO) 5.1 K/uL (3.8-11.8)
[2018-09-29 07:25] LABS: BILIRUBIN,DIRECT 0.3 mg/dL (0.0-0.2); BILIRUBIN,TOTAL 0.9 mg/dL (0.2-1.0); CREATININE 0.6 mg/dL (0.6-1.3); POTASSIUM 3.3 mmol/L (3.5-5.1); TOTAL PROTEIN, SERUM 7.3 g/dL (6.4-8.2)
--- NOTE | 2018-09-29 07:30 | NUR ---
PT.IN BED A/A/OX3,NO S/S OF DISTRESS,NO NEURO DEFICIT C/O ON GEN.PAIN,MEDICATED WITH MORPHINE IV WITH GOOD OUTCOME.
[2018-09-29 08:15] LABS: LYMPHOCYTES % (MANUAL) 31 % (20-40); MONOCYTES % (MANUAL) 6 % (2-10); NEUTROPHILS % (MANUAL) 63 % (42-75)
[2018-09-29] MEDS: FOLIC ACID 1 MG TABLET PO SCH (08:15)
[2018-09-29] MEDS: LEVETIRACETAM IV 500 MG in IV DEXTROSE 5% 100 ML IV SCH ×2 (08:15→21:09)
[2018-09-29] MEDS: CYANOCOBALAMIN 1,000 MCG TABLET PO SCH (08:15)
--- NOTE | 2018-09-29 08:28 | NUR ---
PT.WAS SEEN BY TOOL POLISHING MACHINE OPERATOR:DOUG JACK.
[2018-09-29] MEDS ORDERED: THIAMINE HCL 100 MG TABLET PO SCH (09:00)
[2018-09-29] MEDS ORDERED: FAMOTIDINE. 20 MG/2 ML VIAL IV SCH (09:00)
[2018-09-29] MEDS: IV NS 1000 ML 1,000 ML IV PRN ×2 (09:28→19:34)
--- NOTE | 2018-09-29 11:14 | NUR ---
up with pt.tolerated well.
[2018-09-29] MEDS ORDERED: POTASSIUM CHLORIDE 20 MEQ TAB.PRT.SR PO ONE (12:00)
[2018-09-29] MEDS: THIAMINE HCL 100 MG TABLET PO SCH (12:24)
--- NOTE | 2018-09-29 12:28 | NUR ---
Pt.eating lunch,watching TV.
--- NOTE | 2018-09-29 15:30 | NUR ---
pt.sleeping,no s/s of distress.
--- NOTE | 2018-09-29 17:22 | NUR ---
Pt. A/A/Ox3 up in the chair for dinner.
--- NOTE | 2018-09-29 18:41 | NUR ---
Pt. back to bed, no changes in pt.condition.
[2018-09-30] VITALS (11 sets, daily range): BP systolic 115–148; BP diastolic 65–77
[2018-09-30] MEDS: MORPHINE SULFATE 2 MG/1 ML DISP.SYRIN IV PRN ×8 (00:04→23:57)
[2018-09-30] MEDS: BLOOD SUGAR DIAGNOSTIC 1 EACH STRIP VI SCH ×5 (00:05→20:12)
[2018-09-30] MEDS: NIMODIPINE 30 MG CAPSULE PO SCH ×7 (04:54→23:57)
[2018-09-30 05:10] LABS: BASOPHILS % (AUTO) 0.9 % (0.0-2.0); EOSINOPHILS # (AUTO) 0.1 K/uL (0.0-0.7); HEMATOCRIT 32.1 % (31.2-41.9); HEMOGLOBIN 10.8 g/dL (10.9-14.3); LYMPHOCYTES # (AUTO) 1.9 K/uL (20.0-40.0); LYMPHOCYTES % (AUTO) 36.8 % (20.5-51.5); MEAN CORPUSCULAR HEMOGLOBIN 27.3 uug (24.7-32.8); MEAN CORPUSCULAR HGB CONC 34 g/dL (32.3-35.6); MEAN CORPUSCULAR VOLUME 81.6 fL (75.5-95.3); MONOCYTES # (AUTO) 0.3 K/uL (2.0-10.0); MONOCYTES % (AUTO) 5.4 % (0.0-11.0); NEUTROPHILS # (AUTO) 2.8 K/uL (1.8-8.9); NEUTROPHILS % (AUTO) 55.9 % (38.5-71.5); PLATELET COUNT (AUTO) 97 K/uL (179-408); RED BLOOD CELL COUNT(AUTO) 3.94 MIL/uL (3.63-4.92); WHITE BLOOD COUNT (AUTO) 5.1 K/uL (3.8-11.8)
[2018-09-30 05:28] LABS: CREATININE 0.7 mg/dL (0.6-1.3); POTASSIUM 3.3 mmol/L (3.5-5.1)
[2018-09-30 06:10] LABS: EOSINOPHILS % (MANUAL) 2 % (0-8); LYMPHOCYTES % (MANUAL) 38 % (20-40); MONOCYTES % (MANUAL) 2 % (2-10); NEUTROPHILS % (MANUAL) 56 % (42-75)
[2018-09-30] MEDS: FOLIC ACID 1 MG TABLET PO SCH (08:44)
[2018-09-30] MEDS: LEVETIRACETAM IV 500 MG in IV DEXTROSE 5% 100 ML IV SCH (08:44)
[2018-09-30] MEDS: CYANOCOBALAMIN 1,000 MCG TABLET PO SCH (08:45)
[2018-09-30] MEDS: FAMOTIDINE 20 MG TABLET PO SCH (08:45)
[2018-09-30] MEDS: THIAMINE HCL 100 MG TABLET PO SCH (08:45)
[2018-09-30] MEDS: IV NS 1000 ML 1,000 ML IV PRN ×2 (08:47→20:14)
--- NOTE | 2018-09-30 09:00 | NUR ---
RECEIVED PATIENT FROM ICU VIA BED A ASH STATUS FOR CONTINUITY OF CARE. CONTINUE Q2 HRS NEURO ASSESSMENT.
[2018-09-30] MEDS: ONDANSETRON 4 MG/2 ML VIAL IV PRN (11:18)
--- NOTE | 2018-09-30 11:52 | NUR ---
1200 NIMOTOP NOT GIVEN TOO CLOSE FROM PREVIOUS DOSE
[2018-09-30] MEDS ORDERED: POTASSIUM CHLORIDE 20 MEQ TAB.PRT.SR PO ONE (12:30)
[2018-09-30] MEDS: LEVETIRACETAM 500 MG TABLET PO SCH (20:13)
[2018-10-01] MEDS: NIMODIPINE 30 MG CAPSULE PO SCH ×3 (03:17→12:23)
[2018-10-01] MEDS: MORPHINE SULFATE 2 MG/1 ML DISP.SYRIN IV PRN ×2 (03:20→09:12)
[2018-10-01 03:27] VITALS: BP 134/73
--- NOTE | 2018-10-01 06:00 | NUR ---
patient rested well in between care; no acute distress; c/o pain and addressed accordingly; new IV to right hand; continue to monitor; continue plan of care
[2018-10-01] MEDS: BLOOD SUGAR DIAGNOSTIC 1 EACH STRIP VI SCH ×2 (06:41→12:15)
[2018-10-01] MEDS: IV NS 1000 ML 1,000 ML IV PRN (07:04)
[2018-10-01 07:06] LABS: BASOPHILS % (AUTO) 0.4 % (0.0-2.0); EOSINOPHILS # (AUTO) 0.1 K/uL (0.0-0.7); EOSINOPHILS % (AUTO) 1.6 % (0.0-7.0); HEMATOCRIT 31.3 % (31.2-41.9); HEMOGLOBIN 10.4 g/dL (10.9-14.3); LYMPHOCYTES # (AUTO) 1.6 K/uL (20.0-40.0); LYMPHOCYTES % (AUTO) 32.8 % (20.5-51.5); MEAN CORPUSCULAR HEMOGLOBIN 27.5 uug (24.7-32.8); MEAN CORPUSCULAR HGB CONC 33 g/dL (32.3-35.6); MEAN CORPUSCULAR VOLUME 82.6 fL (75.5-95.3); MONOCYTES # (AUTO) 0.3 K/uL (2.0-10.0); MONOCYTES % (AUTO) 6.5 % (0.0-11.0); NEUTROPHILS # (AUTO) 2.9 K/uL (1.8-8.9); NEUTROPHILS % (AUTO) 58.7 % (38.5-71.5); PLATELET COUNT (AUTO) 115 K/uL (179-408); RED BLOOD CELL COUNT(AUTO) 3.79 MIL/uL (3.63-4.92)
--- NOTE | 2018-10-01 07:10 | NUR ---
PATIENT ALERT AND ORIENTED X4 IN BED , NO SOB NOTED AND NO ACUTE DISTRESS NOTED. IV ON LEFT FOREARM. PROVIDE SAFETY AND CALL LIGHT WITHIN REACH. WILL CONTINUE TO MONITOR AND CONTINUE PLAN OF CARE.
[2018-10-01 07:13] LABS: CREATININE 0.6 mg/dL (0.6-1.3); POTASSIUM 3.3 mmol/L (3.5-5.1)
--- NOTE | 2018-10-01 08:00 | NUR ---
AWAKE ALERT AND VERBALLY RESPONSIVE NO SS OF ACUTE PAIN OR SOB, REMAINS SR/SB ON MONITOR.
[2018-10-01] MEDS: FOLIC ACID 1 MG TABLET PO SCH (09:16)
[2018-10-01] MEDS: THIAMINE HCL 100 MG TABLET PO SCH (09:16)
[2018-10-01] MEDS: LEVETIRACETAM 500 MG TABLET PO SCH (09:16)
[2018-10-01] MEDS: CYANOCOBALAMIN 1,000 MCG TABLET PO SCH (09:16)
[2018-10-01] MEDS: FAMOTIDINE 20 MG TABLET PO SCH (09:16)
[2018-10-01] MEDS ORDERED: FOLI1TAB16 PO (10:02)
[2018-10-01] MEDS ORDERED: THIA100T13 PO (10:02)
[2018-10-01] MEDS ORDERED: POTASSIUM CHLORIDE 20 MEQ TAB.PRT.SR PO ONE (10:15)
--- NOTE | 2018-10-01 11:00 | NUR ---
SEEN BY LAURENCE DELGADO WITH ORDERS FOR TRANSFER TO [facility] FOR CONTINUITY OF CARE
[2018-10-01 11:09] VITALS: BP 129/77
[2018-10-01 12:23] VITALS: BP 144/82
--- NOTE | 2018-10-01 13:45 | NUR ---
PATIENT BECAME VERY IMPATIENT AND UPSET AND JUST WANTED TO GO TAKE A BUS TO A HOTEL. SAID "I JUST WANT TO GO AND I WILL CALL DEBORAH MYSELF" TRIED TO EXPLAIN POLICIES AND PROCEDURE BUT INSISTED TO GO. SHARON POE CALLED PATIENT SIGNED AMA FORM AND LEFT WALKING WITHOUT DIFFICULTY. LAURENCE DELGADO NOTIFIED NO NEW ORDERS. IN ROOM DINING SERVER, [facility] NOTIFIED
--- NOTE | 2018-10-01 13:50 | NUR ---
called Liseth from [facility] and informed of pt's going AMA, also called Shaye from [facility] (transportation) re AMA- states will cancel transportation. Case Management Yvette JUNIOR informed- will call [facility]
--- NOTE | 2018-10-01 14:50 | NUR ---
11:30am: SW consultation requested to complete homeless checklist. This SW, and SW music industry internship Jodie, arrived to med/surg, consulted on case with RN's Chelsea and Charli. SW and SW music industry internship then met with patient. Patient was in bed in her room, receptive to meeting with this SW. Patient is a 63 year old female, homeless. Patient's discharge plan was for patient to be transferred to [facility], which patient expressed being in agreement with. SW assessed patient's needs for additional community resources, which patient declined. SW suggested for her to [facility] once she got settled in, so she could have a lithography contact worker at the SNF to assist her with community resources if she felt she needed any supportive services. Patient expressed agreement. Homeless checklist completed in [employer]. Homeless waiver form completed and provided to SANDI Tran, asking her to have patient sign it upon discharge. Chelsea agreed. No further SS interventions required at this time.
== END 2018-10-01 13:45 | disposition left against medical advice (07) | DRG 44 ==
LOC: ER 04:00 → CCU 08:11 → TELE-TD 09-30 07:48 → TELE 10-01 12:18
PROVIDERS: ADMIT Nurse Practitioner Acute Care; ATTEND Nurse Practitioner Acute Care
DX: I60.8 Other nontraumatic subarachnoid hemorrhage (principal); G93.49 Other encephalopathy; G93.40 Encephalopathy, unspecified; I66.22 Occlusion and stenosis of left posterior cerebral artery; K70.0 Alcoholic fatty liver; D69.59 Other secondary thrombocytopenia; I11.9 Hypertensive heart disease without heart failure; R40.2412 Glasgow coma scale score 13-15, at arrival to emergency department; F10.288 Alcohol dependence with other alcohol-induced disorder; Y90.6 Blood alcohol level of 120-199 mg/100 ml; G40.909 Epilepsy, unspecified, not intractable, without status epilepticus; M50.322 Other cervical disc degeneration at C5-C6 level; E11.9 Type 2 diabetes mellitus without complications; I70.0 Atherosclerosis of aorta; Z59.0 Homelessness; Z86.19 Personal history of other infectious and parasitic diseases; K80.20 Calculus of gallbladder without cholecystitis without obstruction; F10.229 Alcohol dependence with intoxication, unspecified; G40.509 Epileptic seizures related to external causes, not intractable, without status epilepticus; J32.0 Chronic maxillary sinusitis; I65.21 Occlusion and stenosis of right carotid artery; D57.1 Sickle-cell disease without crisis; Z72.0 Tobacco use; I69.398 Other sequelae of cerebral infarction; R26.81 Unsteadiness on feet; R29.715 NIHSS score 15
CPT/HCPCS: 36415; 70450; 70496; 71045; 72125; 72170; 73551; 76700; 80307; 84443; 85025; 85730; 87086; 92610; 93005; 97110; 97112; 97116; 97165; 97530; 97535; A4663; G0378; G0480; J0360; J1953; J2060; J2270; J2405; J3411; J3490; J7030; J7040; J7050; J7060; Q9967

== ENCOUNTER 2018-11-22 03:38 | Emergency (ER) | payer MEDICARE, OTHER ==
[~2018-11-22] VITALS: Ht 165.1 cm; Wt 64.9 kg
[~2018-11-22 03:38] MED LIST changes: -FLUC150T PO; +FOLI1TAB16 PO; -IBUP-1957 PO; +THIA100T13 PO
--- NOTE | 2018-11-22 03:55 | NUR ---
Patient ambulated with stable gait. Patient came in for c/o RT Knee pain s/p working out, and stated she fell off a machine. Pain 01/19. No cardiovascular distress, all pulses palpable. Patient in bed at lowest position, side rails upx2, call light within reach. Fall precautions implemented per protocol.
--- NOTE | 2018-11-22 04:51 | NUR ---
ERMD at bedside for MSE
--- NOTE | 2018-11-22 06:13 | NUR ---
Ultrasound at bedside.
--- NOTE | 2018-11-22 06:57 | NUR ---
Report given to Elfego Bahena RN
--- NOTE | 2018-11-22 07:02 | NUR ---
RECEIVED SHIFT REPORT FROM TRINIDAD Angel RN.
--- NOTE | 2018-11-22 07:42 | NUR ---
PT PROVIDED W/ FOOD AND WATER.
--- NOTE | 2018-11-22 07:42 | NUR ---
Patient given written and verbal discharge instructions. Patient verbalizes understanding of instructions. Patient is ambulatory with steady gait. Refuses offer of jail placement. Patient given list of available shelters in surrounding area. ALL BELONGINGS W/ PT. PT SELF-AMBULATED W/O DIFFICUTLY.
== END 2018-11-22 07:44 | disposition home or self-care (01) ==
LOC: ER 03:38
DX: M25.561 Pain in right knee (principal); E11.9 Type 2 diabetes mellitus without complications; F17.200 Nicotine dependence, unspecified, uncomplicated; Z59.0 Homelessness; Z91.018 Allergy to other foods; Z79.899 Other long term (current) drug therapy; Z86.73 Personal history of transient ischemic attack (TIA), and cerebral infarction without residual deficits
CPT/HCPCS: A4663

== ENCOUNTER 2019-10-01 20:46 | Emergency (ER) | payer OTHER ==
[~2019-10-01] VITALS: Ht 170.2 cm; Wt 65.8 kg
[~2019-10-01 20:46] MED LIST changes: +CYAN-51 PO; -CYAN10009 PO
--- NOTE | 2019-10-01 22:59 | NUR ---
Patient sent back to waiting room due to no beds available in the ER.
[2019-10-01 23:02] LABS: BASOPHILS % (AUTO) 0.4 % (0.0-2.0); EOSINOPHILS % (AUTO) 0.3 % (0.0-7.0); HEMATOCRIT 31.5 % (31.2-41.9); HEMOGLOBIN 10.6 g/dL (10.9-14.3); LYMPHOCYTES % (AUTO) 17.2 % (20.5-51.5); MEAN CORPUSCULAR HEMOGLOBIN 29.1 uug (24.7-32.8); MEAN CORPUSCULAR HGB CONC 34 g/dL (32.3-35.6); MEAN CORPUSCULAR VOLUME 86.8 fL (75.5-95.3); MONOCYTES # (AUTO) 0.4 K/uL (2.0-10.0); MONOCYTES % (AUTO) 6.7 % (0.0-11.0); NEUTROPHILS # (AUTO) 4.4 K/uL (1.8-8.9); NEUTROPHILS % (AUTO) 75.4 % (38.5-71.5); PLATELET COUNT (AUTO) 183 K/uL (179-408); RED BLOOD CELL COUNT(AUTO) 3.63 MIL/uL (3.63-4.92); WHITE BLOOD COUNT (AUTO) 5.8 K/uL (3.8-11.8)
[2019-10-01 23:26] LABS: CREATININE 0.8 mg/dL (0.6-1.3); POTASSIUM 3.9 mmol/L (3.5-5.1)
[2019-10-01 23:32] LABS: BILIRUBIN,DIRECT 0.1 mg/dL (0.0-0.2); BILIRUBIN,TOTAL 0.4 mg/dL (0.2-1.0); TOTAL PROTEIN, SERUM 8.5 g/dL (6.4-8.2)
--- NOTE | 2019-10-02 00:25 | NUR ---
Dr. Chaves at bedside for MSE.
[2019-10-02] MEDS ORDERED: ONDANSETRON 4 MG/2 ML VIAL ONE (00:57)
[2019-10-02] MEDS ORDERED: KETOROLAC TROMETHAMINE 15 MG INJ ONE (00:57)
[2019-10-02] MEDS ORDERED: IV NS 1000 ML 1,000 ML IV ONE (01:00)
[2019-10-02] MEDS ORDERED: ONDANSETRON 4 MG/2 ML VIAL IV ONE (01:00)
[2019-10-02] MEDS ORDERED: KETOROLAC TROMETHAMINE 15 MG INJ IVP ONE (01:00)
--- NOTE | 2019-10-02 01:15 | NUR ---
Pt out of ER for CT.
--- NOTE | 2019-10-02 01:27 | NUR ---
Pt back to ER from CT.
[2019-10-02] MEDS ORDERED: MORPHINE SULFATE 4 MG/1 ML DISP.SYRIN ONE (01:52)
[2019-10-02] MEDS ORDERED: MORPHINE SULFATE 4 MG/1 ML DISP.SYRIN IV ONE (02:00)
--- NOTE | 2019-10-02 03:50 | NUR ---
Dr. Chaves speaking with [facility] .
--- NOTE | 2019-10-02 03:53 | NUR ---
Pt accepted by Dr. Henriquez.
--- NOTE | 2019-10-02 04:36 | NUR ---
Received call back from [facility], with transfer information, patient going to [facility], Accepting MD is Dr. Bowman, Room 430, number to report to . Ambulance auth#[id number]
--- NOTE | 2019-10-02 05:05 | NUR ---
Called Nataly for BLS transport to transfer patient to [facility], spoke with Bradley, given ETA is [phone].
[2019-10-02] MEDS ORDERED: MORPHINE SULFATE 2 MG/1 ML DISP.SYRIN IV ONE (05:15)
[2019-10-02] MEDS ORDERED: MORPHINE SULFATE 2 MG/1 ML DISP.SYRIN ONE (05:16)
--- NOTE | 2019-10-02 06:51 | NUR ---
Report given to Jasiel ayala.
--- NOTE | 2019-10-02 08:10 | NUR ---
REPORT WAS GIVEN TO DEBORAH SEGOVIA. PT WAS TRANSFERED TO [facility], ROOM #402 VIA BLS AMBULANCE. REPORT WAS GIVEN TO AMBULANCE EMT.
== END 2019-10-02 08:18 | disposition short-term general hospital (02) ==
LOC: ER 20:48
DX: K56.609 Unspecified intestinal obstruction, unspecified as to partial versus complete obstruction (principal); F17.200 Nicotine dependence, unspecified, uncomplicated; E11.9 Type 2 diabetes mellitus without complications; Z59.0 Homelessness; Z79.899 Other long term (current) drug therapy; Z91.018 Allergy to other foods
CPT/HCPCS: 36415 ×2; 74176; 80048; 80076; 83690; 85025; 93005 ×2; 96361; 96374; 96375; 96376; 99285; G0480; J1885; J2270 ×2; J2405; A4663; J7030

== ENCOUNTER 2019-10-30 20:07 | Emergency (ER) | payer OTHER ==
[~2019-10-30] VITALS: Ht 165.1 cm; Wt 66.7 kg
[2019-10-30] MEDS ORDERED: MORPHINE SULFATE 4 MG/1 ML DISP.SYRIN IM ONE (20:30)
[2019-10-30] MEDS ORDERED: ONDANSETRON 4 MG/2 ML VIAL IM ONE (20:30)
[2019-10-30] MEDS ORDERED: MORPHINE SULFATE 4 MG/1 ML DISP.SYRIN ONE (20:34)
[2019-10-30] MEDS ORDERED: ONDANSETRON 4 MG/2 ML VIAL ONE (20:35)
--- NOTE | 2019-10-30 20:50 | NUR ---
Patient given written and verbal discharge instructions. Patient verbalizes understanding of instructions. Patient is ambulatory with steady gait with walker. Refuses offer of [facility] placement. Patient given list of available shelters in surrounding area. patient decided to arrange own transportation from the hospital , refuses all other services offered at this time . vs stable , no sob , no distress , awake oriented , all belongings discharged with the patient .
[2019-10-30 20:55] VITALS: BP 105/83
== END 2019-10-30 20:56 | disposition home or self-care (01) ==
LOC: ER 20:10
DX: G62.9 Polyneuropathy, unspecified (principal); D57.819 Other sickle-cell disorders with crisis, unspecified; E11.9 Type 2 diabetes mellitus without complications; F17.200 Nicotine dependence, unspecified, uncomplicated; Z91.018 Allergy to other foods; Z59.0 Homelessness; Z86.73 Personal history of transient ischemic attack (TIA), and cerebral infarction without residual deficits
CPT/HCPCS: 96372 ×2; 99284; J2270; J2405; A4663

== ENCOUNTER 2019-11-26 02:43 | Emergency (ER) | payer OTHER ==
[~2019-11-26] VITALS: Ht 167.6 cm; Wt 64.9 kg
--- NOTE | 2019-11-26 03:07 | NUR ---
Patient ambulated with stable gait using a four wheel walker. A/Ox3. Speech is clear, speaks in complete sentences. No acute neuro deficits noted. Patient came for c/o chest pain, numbness and tingling in hands, and pain in her feet. Respiratory even and unlabored, no evidence of cough, sob, or increased work of breathing. Denies any n/v/d, or any distress at this time. Patient in bed at lowest position, sr upx2, call light within reach. Fall precautions implemented per protocol.
--- NOTE | 2019-11-26 03:09 | NUR ---
ERMD at bedside for MSE
[2019-11-26] MEDS ORDERED: ONDANSETRON 4 MG/2 ML VIAL IM ONE (03:15)
[2019-11-26] MEDS ORDERED: MORPHINE SULFATE 4 MG/1 ML DISP.SYRIN IM ONE (03:15)
[2019-11-26] MEDS ORDERED: MORPHINE SULFATE 4 MG/1 ML DISP.SYRIN ONE (03:18)
[2019-11-26] MEDS ORDERED: ONDANSETRON 4 MG/2 ML VIAL ONE (03:18)
--- NOTE | 2019-11-26 03:46 | NUR ---
Patient given written and verbal discharge instructions. Patient verbalizes understanding of instructions. Patient is ambulatory with steady gait using four wheel walker. Refuses offer of care home placement. Patient given list of available shelters in surrounding area.
[2019-11-26 03:47] VITALS: BP 128/83
== END 2019-11-26 03:50 | disposition home or self-care (01) ==
LOC: ER 02:46
DX: E11.42 Type 2 diabetes mellitus with diabetic polyneuropathy (principal); F17.200 Nicotine dependence, unspecified, uncomplicated; Z59.0 Homelessness; D57.1 Sickle-cell disease without crisis; Z86.73 Personal history of transient ischemic attack (TIA), and cerebral infarction without residual deficits
CPT/HCPCS: 96372; 99283; J2270; J2405; A4663

== ENCOUNTER 2019-12-27 15:26 | Emergency (ER) | payer MEDICARE, OTHER ==
[~2019-12-27] VITALS: Ht 167.6 cm; Wt 62.6 kg
--- NOTE | 2019-12-27 15:55 | NUR ---
Seen,examined by .
[2019-12-27 16:07] LABS: BASOPHILS % (AUTO) 0.7 % (0.0-2.0); EOSINOPHILS # (AUTO) 0.1 K/uL (0.0-0.7); EOSINOPHILS % (AUTO) 1.5 % (0.0-7.0); HEMATOCRIT 27.6 % (31.2-41.9); HEMOGLOBIN 9.2 g/dL (10.9-14.3); LYMPHOCYTES # (AUTO) 2.6 K/uL (20.0-40.0); LYMPHOCYTES % (AUTO) 55.1 % (20.5-51.5); MEAN CORPUSCULAR HEMOGLOBIN 28.3 uug (24.7-32.8); MEAN CORPUSCULAR HGB CONC 34 g/dL (32.3-35.6); MEAN CORPUSCULAR VOLUME 84.6 fL (75.5-95.3); MONOCYTES # (AUTO) 0.3 K/uL (2.0-10.0); MONOCYTES % (AUTO) 6.5 % (0.0-11.0); NEUTROPHILS # (AUTO) 1.7 K/uL (1.8-8.9); NEUTROPHILS % (AUTO) 36.2 % (38.5-71.5); PLATELET COUNT (AUTO) 315 K/uL (179-408); RED BLOOD CELL COUNT(AUTO) 3.26 MIL/uL (3.63-4.92); WHITE BLOOD COUNT (AUTO) 4.6 K/uL (3.8-11.8)
[2019-12-27 16:14] LABS: CREATININE 1.1 mg/dL (0.6-1.3); POTASSIUM 4.2 mmol/L (3.5-5.1)
[2019-12-27] MEDS ORDERED: ONDANSETRON ODT 4 MG TAB.RAPDIS SL ONE (16:15)
[2019-12-27] MEDS ORDERED: MORPHINE SULFATE 4 MG/1 ML DISP.SYRIN IM ONE (16:15)
[2019-12-27 16:20] LABS: BILIRUBIN,TOTAL 0.2 mg/dL (0.2-1.0); TOTAL PROTEIN, SERUM 7.8 g/dL (6.4-8.2)
[2019-12-27] MEDS ORDERED: MORPHINE SULFATE 4 MG/1 ML DISP.SYRIN ONE (16:21)
[2019-12-27] MEDS ORDERED: ONDANSETRON ODT 4 MG TAB.RAPDIS ONE (16:22)
[2019-12-27 17:36] VITALS: BP 153/87
== END 2019-12-27 17:37 | disposition home or self-care (01) ==
LOC: ER 15:35
DX: E11.40 Type 2 diabetes mellitus with diabetic neuropathy, unspecified (principal); G89.29 Other chronic pain; Z59.0 Homelessness; D57.1 Sickle-cell disease without crisis; Z86.73 Personal history of transient ischemic attack (TIA), and cerebral infarction without residual deficits; Z91.19 Patient's noncompliance with other medical treatment and regimen; I10 Essential (primary) hypertension; F10.20 Alcohol dependence, uncomplicated; Y90.9 Presence of alcohol in blood, level not specified; F17.200 Nicotine dependence, unspecified, uncomplicated
CPT/HCPCS: 36415; 80053; 85025; 96372; 99283; J2270; A4663; Q0162

== ENCOUNTER 2019-12-27 23:54 | Emergency (ER) | payer OTHER ==
[~2019-12-27] VITALS: Ht 167.6 cm; Wt 67.1 kg
--- NOTE | 2019-12-28 | NUR ---
ADMITTED TO ER RM-5 VIA WHEELCHAIR C/O GENERALIZED PAIN. EVALUATED PT W/ ORDER.
[2019-12-28] MEDS ORDERED: KETOROLAC TROMETHAMINE 30 MG INJ ONE (00:20)
[2019-12-28] MEDS ORDERED: HYDROCODONE/APAP 10-325 MG TABLET ONE (00:23)
[2019-12-28] MEDS: KETOROLAC TROMETHAMINE 30 MG INJ IM ONE (00:25)
--- NOTE | 2019-12-28 00:25 | NUR ---
MEDICATED W/ TORADOL 30MG IM & NORCO 10/325 1 TAB GIVEN ORDERED.
[2019-12-28] MEDS: HYDROCODONE/APAP 10-325 MG TABLET PO ONE (00:27)
--- NOTE | 2019-12-28 00:45 | NUR ---
Patient discharged to home in stable condition. Written and verbal after care instructions given. Patient verbalizes understanding of instructions. Stressed follow up or return to ER for worsening s/s.
[2019-12-28 01:12] VITALS: BP 145/85
== END 2019-12-28 00:45 | disposition home or self-care (01) ==
LOC: ER 23:57
DX: M79.606 Pain in leg, unspecified (principal); G89.4 Chronic pain syndrome; Z76.5 Malingerer [conscious simulation]; Z59.0 Homelessness; D64.9 Anemia, unspecified; Z86.73 Personal history of transient ischemic attack (TIA), and cerebral infarction without residual deficits; Z99.3 Dependence on wheelchair; M79.643 Pain in unspecified hand; M79.673 Pain in unspecified foot
CPT/HCPCS: 96372; 99283; J1885

== ENCOUNTER 2020-02-09 03:57 | Emergency (ER) | payer OTHER ==
[~2020-02-09] VITALS: Ht 170.2 cm; Wt 64.0 kg
--- NOTE | 2020-02-09 04:24 | NUR ---
Dr. Chaves at bedside for MSE.
[2020-02-09] MEDS ORDERED: IV NS 1000 ML 1,000 ML IV ONE (04:45)
--- NOTE | 2020-02-09 04:47 | NUR ---
Patient refuses blood work and other diagnostic test. Dr. Chaves notififed, patient will sign out AMA. Patient does not wish to proceed with medical care recommended by Dr. Chaves. Patient given information related to possible complications, up to and including , which could occur as a result of leaving the hospital at this time. Patient verbalizes understanding of risks involved due to leaving against medical advice. Patient has signed AMA form.
[2020-02-09 04:50] VITALS: BP 109/76
== END 2020-02-09 04:54 | disposition left against medical advice (07) ==
LOC: ER 04:05
DX: M79.10 Myalgia, unspecified site (principal); M25.50 Pain in unspecified joint; Z59.0 Homelessness; F17.200 Nicotine dependence, unspecified, uncomplicated; D57.1 Sickle-cell disease without crisis; Z86.73 Personal history of transient ischemic attack (TIA), and cerebral infarction without residual deficits
CPT/HCPCS: 93005; A4663; J7030

== ENCOUNTER 2020-03-10 22:04 | Emergency (ER) | payer OTHER, MEDICAID ==
[~2020-03-10] VITALS: Ht 167.6 cm; Wt 64.0 kg
--- NOTE | 2020-03-10 22:39 | NUR ---
DR. ALARCON AT BEDSIDE FOR MSE
[2020-03-10 23:13] LABS: CREATININE 1.5 mg/dL (0.6-1.3); POTASSIUM 3.5 mmol/L (3.5-5.1)
[2020-03-10 23:16] LABS: BASOPHILS % (AUTO) 0.6 % (0.0-2.0); EOSINOPHILS # (AUTO) 0.1 K/uL (0.0-0.7); EOSINOPHILS % (AUTO) 1.3 % (0.0-7.0); HEMATOCRIT 23.2 % (31.2-41.9); HEMOGLOBIN 7.9 g/dL (10.9-14.3); LYMPHOCYTES # (AUTO) 2.7 K/uL (20.0-40.0); LYMPHOCYTES % (AUTO) 42.9 % (20.5-51.5); MEAN CORPUSCULAR HEMOGLOBIN 29.7 uug (24.7-32.8); MEAN CORPUSCULAR HGB CONC 34 g/dL (32.3-35.6); MEAN CORPUSCULAR VOLUME 86.8 fL (75.5-95.3); MONOCYTES # (AUTO) 0.4 K/uL (2.0-10.0); MONOCYTES % (AUTO) 6.7 % (0.0-11.0); NEUTROPHILS % (AUTO) 48.5 % (38.5-71.5); PLATELET COUNT (AUTO) 252 K/uL (179-408); RED BLOOD CELL COUNT(AUTO) 2.68 MIL/uL (3.63-4.92); WHITE BLOOD COUNT (AUTO) 6.3 K/uL (3.8-11.8)
[2020-03-10 23:26] LABS: BILIRUBIN,DIRECT 0.1 mg/dL (0.0-0.2); BILIRUBIN,TOTAL 0.4 mg/dL (0.2-1.0); TOTAL PROTEIN, SERUM 7.7 g/dL (6.4-8.2)
--- NOTE | 2020-03-11 01:00 | NUR ---
pt in bed, asleep. easily arousable no s/s of distress respirations even and unlabored safety precautions in place. bed locked, lowest position. Instructed pt to call nurse for assistance will continue to monitor
--- NOTE | 2020-03-11 03:00 | NUR ---
pt in bed, asleep. easily arousable no s/s of distress respirations even and unlabored safety precautions in placed. bed locked, lowest position will continue to monitor
--- NOTE | 2020-03-11 04:27 | NUR ---
Called Gomez from [facility]. stated will let ANS know regarding pt covid 19 result.
--- NOTE | 2020-03-11 05:10 | NUR ---
Received call from Catherine regarding pt's hospital room [facility] Room 867-Bed 1 Will set up transport Awaiting for transport ETA
--- NOTE | 2020-03-11 05:18 | NUR ---
Report given to SANDI Lynch from [facility]
--- NOTE | 2020-03-11 05:20 | NUR ---
Catherine from [facility] transport ETA [phone]
--- NOTE | 2020-03-11 07:07 | NUR ---
report given to SANDI appiah
--- NOTE | 2020-03-11 07:15 | NUR ---
Physician Executive assumed care. Patient is seen resting comfortably on [facility] with eyes closed. PATIENT IS PAIN FREE AT THIS TIME. Patient is waiting for her ambulance pick up truck driver. ETA=approx 0830. Comfort & safety measures maintained. Patient's questions and concerns addressed.
--- NOTE | 2020-03-11 08:38 | NUR ---
Ambulance shrimp picker is here. Hands off report given to EMT Estuardo.
--- NOTE | 2020-03-11 08:44 | NUR ---
Patient tranfers to outside facility: [facility] Physician: Ansley Location: room 867 (med-surgical) RN : Cris accepted patient ambulance : insurance-arranged ambulance [facility] ( EMT Estuardo accepted patient)
== END 2020-03-11 08:56 | disposition short-term general hospital (02) ==
LOC: ER 22:07
DX: R60.0 Localized edema (principal); E87.2 Acidosis; R94.31 Abnormal electrocardiogram [ECG] [EKG]; Z86.73 Personal history of transient ischemic attack (TIA), and cerebral infarction without residual deficits; D57.1 Sickle-cell disease without crisis; N17.9 Acute kidney failure, unspecified; R79.89 Other specified abnormal findings of blood chemistry
CPT/HCPCS: 36415; 70030-TC; 71045; 85025; 85730; 93005; A4663

== ENCOUNTER 2020-03-20 22:16 | Emergency (ER) | payer OTHER, MEDICAID ==
[~2020-03-20] VITALS: Ht 165.1 cm; Wt 55.8 kg
--- NOTE | 2020-03-20 22:26 | NUR ---
at bedside for MSE
[2020-03-20] MEDS ORDERED: HYDROCODONE/APAP 10-325 MG TABLET ONE (22:35)
[2020-03-20] MEDS ORDERED: SULFAMETH/TRIMETH 800/160 MG TABLET PO ONE (22:45)
[2020-03-20] MEDS ORDERED: LIDOCAINE 1%-EPI 1:100,000 20 ML VIAL IJ ONE (22:45)
[2020-03-20] MEDS ORDERED: HYDROCODONE/APAP 10-325 MG TABLET PO ONE (22:45)
--- NOTE | 2020-03-20 22:48 | NUR ---
Patient complaints of right ankle/leg pain, large raised discolored area noted to lateral side of right ankle
[2020-03-20] MEDS ORDERED: SULFAMETH/TRIMETH 800/160 MG TABLET ONE (22:49)
[2020-03-20] MEDS ORDERED: SODIUM BICARBONATE 4.2 % (NEUT) 5 ML VIAL ONE (22:54)
--- NOTE | 2020-03-20 22:54 | NUR ---
to perform incision and drainage of right ankle
[2020-03-20] MEDS ORDERED: SODIUM BICARBONATE 4.2 % (NEUT) 5 ML VIAL IV ONE (23:00)
--- NOTE | 2020-03-20 23:20 | NUR ---
right ankle packed with packing and wrpped with kerlix and gauze netting
--- NOTE | 2020-03-20 23:28 | NUR ---
Patient discharged to home in stable condition. Noted ambulating with wheelchair. Written and verbal after care instructions given. Rx given. Patient verbalizes understanding of instructions. Stressed follow up or return to ER for worsening s/s. Patient given written and verbal discharge instructions. Patient verbalizes understanding of instructions. Patient is ambulatory with steady gait. Refuses offer of intermediate placement. Patient given list of available shelters in surrounding area.
[2020-03-20 23:32] VITALS: BP 121/89
== END 2020-03-20 23:30 | disposition home or self-care (01) ==
LOC: ER 22:18
DX: S80.11XA Contusion of right lower leg, initial encounter (principal); W22.8XXA Striking against or struck by other objects, initial encounter; Y92.521 Bus station as the place of occurrence of the external cause; Z59.0 Homelessness; G89.4 Chronic pain syndrome; Z86.73 Personal history of transient ischemic attack (TIA), and cerebral infarction without residual deficits; F17.290 Nicotine dependence, other tobacco product, uncomplicated
CPT/HCPCS: 10140; 76882; 99284; 99406; J3490 ×2; A4663

== ENCOUNTER 2020-03-21 12:20 | Emergency (ER) | payer OTHER, MEDICAID ==
[~2020-03-21] VITALS: Ht 167.6 cm; Wt 63.5 kg
--- NOTE | 2020-03-21 12:33 | NUR ---
Dr Engle at the bedside for MSE.
--- NOTE | 2020-03-21 12:34 | NUR ---
Dressing on Rt ankle removed by MD. Cleaned and redressed the site. Pt tolorated well. Also tought pt how to redress if drainage noted.
[2020-03-21 12:55] VITALS: BP 131/87
== END 2020-03-21 12:57 | disposition home or self-care (01) ==
LOC: ER 12:20
DX: S80.11XD Contusion of right lower leg, subsequent encounter (principal); W22.8XXD Striking against or struck by other objects, subsequent encounter; Z86.73 Personal history of transient ischemic attack (TIA), and cerebral infarction without residual deficits; F17.200 Nicotine dependence, unspecified, uncomplicated
CPT/HCPCS: A4663

== ENCOUNTER 2020-03-23 22:07 | Emergency (ER) | payer OTHER, MEDICAID ==
[~2020-03-23] VITALS: Ht 167.6 cm; Wt 64.9 kg
[2020-03-23] MEDS ORDERED: NEOMY/BACITRA/POLYMYXIN B OINT UD PACKET TP ONE ×2 (22:41→22:45)
[2020-03-23 23:07] VITALS: BP 116/66
== END 2020-03-23 23:00 | disposition home or self-care (01) ==
LOC: ER 22:12
DX: Z48.817 Encounter for surgical aftercare following surgery on the skin and subcutaneous tissue (principal); L02.415 Cutaneous abscess of right lower limb; Z86.73 Personal history of transient ischemic attack (TIA), and cerebral infarction without residual deficits
CPT/HCPCS: A4663

== ENCOUNTER 2020-03-25 23:33 | Emergency (ER) | payer OTHER, MEDICAID ==
[~2020-03-25] VITALS: Ht 167.6 cm; Wt 64.9 kg
[2020-03-25] MEDS ORDERED: FOLI1TAB16 PO (23:46)
[2020-03-25] MEDS ORDERED: IBUP-1954 PO (23:46)
[2020-03-25] MEDS ORDERED: LEVE500T20 PO (23:46)
[2020-03-25] MEDS ORDERED: FAMO-132 PO (23:46)
[2020-03-25] MEDS ORDERED: PANT40TA2 PO (23:46)
[2020-03-25] MEDS ORDERED: LISI-607 PO (23:46)
[2020-03-26 00:02] VITALS: BP 121/51
--- NOTE | 2020-03-26 00:02 | NUR ---
Patient's right leg wrapped with CATRACHITO wrap by Dr. Escudero. Patient discharged to home in stable condition. Written and verbal after care instructions given. Patient verbalizes understanding of instructions. Stressed follow up or return to ER for worsening s/s.
== END 2020-03-26 00:07 | disposition home or self-care (01) ==
LOC: ER 23:35
DX: Z48.817 Encounter for surgical aftercare following surgery on the skin and subcutaneous tissue (principal); R60.9 Edema, unspecified; L81.9 Disorder of pigmentation, unspecified; G89.4 Chronic pain syndrome; Z86.73 Personal history of transient ischemic attack (TIA), and cerebral infarction without residual deficits; F17.290 Nicotine dependence, other tobacco product, uncomplicated
CPT/HCPCS: A4663

== ENCOUNTER 2020-04-10 22:33 | Emergency (ER) | payer OTHER, MEDICAID ==
[~2020-04-10] VITALS: Ht 167.6 cm; Wt 64.4 kg
[~2020-04-10 22:33] MED LIST changes: -ALBU18HF2 INH; -CYAN-51 PO; +FAMO-132 PO; +IBUP-1954 PO; +LEVE500T20 PO; +PANT40TA2 PO; -THIA100T13 PO
--- NOTE | 2020-04-10 22:52 | NUR ---
at bedside for MSE
--- NOTE | 2020-04-10 22:55 | NUR ---
Radiology in room to x-ray right hand
[2020-04-10] MEDS ORDERED: HYDROCODONE/APAP 10-325 MG TABLET PO ONE (23:15)
[2020-04-10] MEDS ORDERED: HYDROCODONE/APAP 10-325 MG TABLET ONE (23:17)
--- NOTE | 2020-04-10 23:28 | NUR ---
Patient given written and verbal discharge instructions. Patient noted ambulating with steady gait and with the assistance of wheelchair, took all belongings. Patient verbalizes understanding of instructions. Patient is ambulatory with steady gait. Refuses offer of residential placement. Patient given list of available shelters in surrounding area.
[2020-04-10 23:29] VITALS: BP 159/98
== END 2020-04-10 23:30 | disposition home or self-care (01) ==
LOC: ER 22:36
DX: S60.221A Contusion of right hand, initial encounter (principal); W19.XXXA Unspecified fall, initial encounter; Y92.89 Other specified places as the place of occurrence of the external cause; Z86.73 Personal history of transient ischemic attack (TIA), and cerebral infarction without residual deficits; Z91.018 Allergy to other foods
CPT/HCPCS: 73130; A4663

== ENCOUNTER 2020-04-30 01:51 | Inpatient (IN) | payer MEDICAID, OTHER ==
[~2020-04-30] VITALS: Ht 167.6 cm; Wt 64.9 kg
[~2020-04-30 01:51] MED LIST changes: -LISI-607 PO
--- NOTE | 2020-04-30 02:09 | NUR ---
Dr. Dove at bedside for MSE
[2020-04-30] MEDS ORDERED: IV NORMAL SALINE 500 ML BAG IV ONE (02:15)
[2020-04-30] MEDS ORDERED: ONDANSETRON 4 MG/2 ML VIAL IV ONE (02:30)
[2020-04-30] MEDS ORDERED: ONDANSETRON 4 MG/2 ML VIAL ONE (02:32)
[2020-04-30 02:50] LABS: BASOPHILS % (AUTO) 0.4 % (0.0-2.0); EOSINOPHILS % (AUTO) 0.2 % (0.0-7.0); HEMATOCRIT 27.4 % (31.2-41.9); HEMOGLOBIN 9.4 g/dL (10.9-14.3); LYMPHOCYTES # (AUTO) 1.9 K/uL (20.0-40.0); LYMPHOCYTES % (AUTO) 24.2 % (20.5-51.5); MEAN CORPUSCULAR HGB CONC 35 g/dL (32.3-35.6); MEAN CORPUSCULAR VOLUME 89.9 fL (75.5-95.3); MONOCYTES # (AUTO) 0.5 K/uL (2.0-10.0); MONOCYTES % (AUTO) 5.9 % (0.0-11.0); NEUTROPHILS # (AUTO) 5.3 K/uL (1.8-8.9); NEUTROPHILS % (AUTO) 69.3 % (38.5-71.5); PLATELET COUNT (AUTO) 240 K/uL (179-408); RED BLOOD CELL COUNT(AUTO) 3.05 MIL/uL (3.63-4.92); WHITE BLOOD COUNT (AUTO) 7.7 K/uL (3.8-11.8)
[2020-04-30 03:04] LABS: BILIRUBIN,DIRECT 0.4 mg/dL (0.0-0.2); BILIRUBIN,TOTAL 0.7 mg/dL (0.2-1.0); CREATININE 1.2 mg/dL (0.6-1.3); POTASSIUM 3.7 mmol/L (3.5-5.1); TOTAL PROTEIN, SERUM 8.1 g/dL (6.4-8.2)
--- NOTE | 2020-04-30 03:06 | NUR ---
pt out of er for CT
[2020-04-30] MEDS ORDERED: DEXTROSE 50% 50 ML DISP.SYRIN IV ONE ×2 (03:30→04:30)
[2020-04-30] MEDS ORDERED: DEXTROSE 50% 50 ML DISP.SYRIN ONE ×2 (03:33→04:43)
[2020-04-30] MEDS ORDERED: IV D5 1/2 NS 1000 ML 1,000 ML IV ONE (03:49)
[2020-04-30] MEDS ORDERED: THIAMINE HCL 200 MG/2 ML VIAL ONE (03:59)
[2020-04-30] MEDS ORDERED: LORAZEPAM 2 MG/1 ML VIAL IV ONE ×3 (04:00→05:00)
[2020-04-30] MEDS ORDERED: THIAMINE HCL 200 MG/2 ML VIAL IV ONE (04:00)
[2020-04-30] MEDS ORDERED: levETIRAcetam IV 500 MG in IV DEXTROSE 5% 100 ML IV ONE (04:00)
[2020-04-30] MEDS ORDERED: LORAZEPAM 2 MG/1 ML VIAL ONE (04:06)
--- NOTE | 2020-04-30 04:18 | NUR ---
BS 69. notified
[2020-04-30] MEDS ORDERED: levETIRAcetam 500 MG/5 ML VIAL IV ONE (04:34)
--- NOTE | 2020-04-30 04:37 | NUR ---
Izabela murry [place] called to provide update on patient admission. Patient will be going to [facility] for inpatient admission. Dr. Medina, admitting [facility] be [facility] Awaiting call at this moment. Fax number [phone]
--- NOTE | 2020-04-30 04:41 | NUR ---
Dr. Medina on the line with JEFE.
--- NOTE | 2020-04-30 04:46 | NUR ---
Dr. Medina gave auth to admit to panel. Stacy Snider NP paged awaiting call back.
--- NOTE | 2020-04-30 04:52 | NUR ---
Dr. Dove on panel call with LAURENCE Snider
[2020-04-30] MEDS ORDERED: IV D5 1/2 NS 1000 ML 1,000 ML IV PRN (04:54)
[2020-04-30] MEDS ORDERED: MAGNESIUM HYDROXIDE 30 ML LIQUID UDC PO PRN (05:00)
[2020-04-30] MEDS ORDERED: Z GUARD REMEDY PASTE 57 GM TUBE TOP PRN (05:00)
[2020-04-30] MEDS ORDERED: ONDANSETRON 4 MG/2 ML VIAL IV PRN (05:00)
[2020-04-30] MEDS ORDERED: LORAZEPAM 2 MG/1 ML VIAL IV PRN (05:00)
[2020-04-30] MEDS ORDERED: DEXTROSE 50% 50 ML DISP.SYRIN IV PRN (05:00)
[2020-04-30] MEDS: BLOOD SUGAR DIAGNOSTIC 1 EACH STRIP VI SCH ×5 (05:12→20:15)
--- NOTE | 2020-04-30 05:33 | NUR ---
Report given to SANDI Plata
[2020-04-30 05:49] LABS: BASOPHILS % (AUTO) 0.6 % (0.0-2.0); EOSINOPHILS % (AUTO) 0.1 % (0.0-7.0); HEMATOCRIT 22.6 % (31.2-41.9); HEMOGLOBIN 7.7 g/dL (10.9-14.3); LYMPHOCYTES # (AUTO) 1.4 K/uL (20.0-40.0); LYMPHOCYTES % (AUTO) 19.1 % (20.5-51.5); MEAN CORPUSCULAR HEMOGLOBIN 30.3 uug (24.7-32.8); MEAN CORPUSCULAR HGB CONC 34 g/dL (32.3-35.6); MONOCYTES # (AUTO) 0.2 K/uL (2.0-10.0); MONOCYTES % (AUTO) 3.2 % (0.0-11.0); NEUTROPHILS # (AUTO) 5.7 K/uL (1.8-8.9); PLATELET COUNT (AUTO) 205 K/uL (179-408); RED BLOOD CELL COUNT(AUTO) 2.54 MIL/uL (3.63-4.92); WHITE BLOOD COUNT (AUTO) 7.4 K/uL (3.8-11.8)
--- NOTE | 2020-04-30 05:55 | NUR ---
pt in bed, asleep. easily arousable no s/s of distress respirations even and unlabored no n/v safety precautions in place. bed locked, lowest position will continue to monitor
[2020-04-30 06:14] LABS: BILIRUBIN,TOTAL 0.5 mg/dL (0.2-1.0); CREATININE 1.1 mg/dL (0.6-1.3); PHOSPHOROUS 2.6 mg/dL (2.5-4.9); TOTAL PROTEIN, SERUM 6.9 g/dL (6.4-8.2)
[2020-04-30] MEDS ORDERED: MAGNESIUM SULFATE/D5W 200 ML ONE (06:29)
[2020-04-30] MEDS: MAGNESIUM SULFATE/D5W 100 ML IV SCH ×6 (06:33→21:58)
[2020-04-30 06:36] LABS: THYROID STIMULATING HORMONE 0.293 mIU/mL (0.358-3.740)
[2020-04-30] MEDS ORDERED: POTASSIUM CHLORIDE 20 MEQ TAB.PRT.SR ONE (06:43)
[2020-04-30] MEDS ORDERED: POTASSIUM CHLORIDE 20 MEQ TAB.PRT.SR PO ONE (06:45)
--- NOTE | 2020-04-30 07:15 | NUR ---
report given to SANDI Peng
[2020-04-30] MEDS ORDERED: THIAMINE HCL INJ 100 MG in IV DEXTROSE 5% 50 ML IV SCH ×2 (08:00→21:00)
--- NOTE | 2020-04-30 08:07 | NUR ---
COVID-19=negative. 3rd floor transmitter engineer in charge Rohoni notified.
[2020-04-30] MEDS ORDERED: MULTIVITAMINS,THERAPEUTIC TABLET PO SCH (09:00)
[2020-04-30] MEDS ORDERED: PANTOPRAZOLE SODIUM 40 MG VIAL IV SCH (09:00)
[2020-04-30] MEDS ORDERED: FOLIC ACID/VITAMIN B COMP W-C TABLET PO SCH (09:00)
[2020-04-30] MEDS ORDERED: levETIRAcetam 250 MG TABLET PO SCH (09:00)
--- NOTE | 2020-04-30 09:23 | NUR ---
65 YEAR OLD FEMALE RECEIVED FROM ER FOR SEIZURE ,PT IS AXOX4 .CALL LIGHT WITH IN REACH .MD CALLED FOR ADMISSION ORDERS
[2020-04-30 09:49] VITALS: BP 150/85
[2020-04-30] MEDS: POTASSIUM CHLORIDE 50 ML IV SCH ×3 (09:54→12:03)
[2020-04-30] MEDS: ACETAMINOPHEN 325 MG TABLET PO PRN ×2 (11:55→20:01)
[2020-04-30] MEDS ORDERED: levETIRAcetam IV 500 MG in IV DEXTROSE 5% 100 ML IV SCH (12:00)
[2020-04-30] MEDS ORDERED: POTASSIUM CHLORIDE 10 MEQ TAB.PRT.SR PO ONE (12:15)
[2020-04-30] MEDS ORDERED: POTASSIUM CHLORIDE 50 ML IV SCH (13:30)
[2020-04-30 16:13] VITALS: BP 150/86
[2020-04-30] MEDS ORDERED: levETIRAcetam 500 MG TABLET PO SCH (17:00)
[2020-04-30] MEDS: D5 IV PRN (17:04)
[2020-04-30] MEDS: MVI ADULT IV PRN (17:04)
[2020-04-30] MEDS: NACL IV PRN (17:04)
[2020-04-30] MEDS: FOLIC ACID IV PRN (17:04)
--- NOTE | 2020-04-30 19:30 | NUR ---
Received patient asleep and lying in bed. AAOx4. No s/s of acute distress at this time. Pt is on RA and denies SOB. prepared foods production team member is on. Right and Left hand IV patent and intact, infusing ordered fluids. Seizure precautions in place. Side rails padded, bed locked in low position, and bed alarm on. Safety measures in place and will continue to monitor.
[2020-04-30] MEDS: levETIRAcetam 500 MG TABLET PO SCH (20:01)
[2020-04-30 20:17] VITALS: BP 160/92
[2020-04-30 21:00] VITALS: BP 143/84
[2020-05-01 00:22] VITALS: BP 150/76
[2020-05-01] MEDS: BLOOD SUGAR DIAGNOSTIC 1 EACH STRIP VI SCH ×6 (01:02→21:12)
[2020-05-01 05:56] VITALS: BP 156/87
[2020-05-01 06:32] LABS: BASOPHILS % (AUTO) 0.2 % (0.0-2.0); HEMATOCRIT 26.3 % (31.2-41.9); LYMPHOCYTES # (AUTO) 1.4 K/uL (20.0-40.0); LYMPHOCYTES % (AUTO) 29.1 % (20.5-51.5); MEAN CORPUSCULAR HEMOGLOBIN 29.9 uug (24.7-32.8); MEAN CORPUSCULAR HGB CONC 34 g/dL (32.3-35.6); MEAN CORPUSCULAR VOLUME 87.8 fL (75.5-95.3); MONOCYTES # (AUTO) 0.3 K/uL (2.0-10.0); MONOCYTES % (AUTO) 6.2 % (0.0-11.0); NEUTROPHILS % (AUTO) 63.5 % (38.5-71.5); PLATELET COUNT (AUTO) 161 K/uL (179-408); WHITE BLOOD COUNT (AUTO) 4.7 K/uL (3.8-11.8)
[2020-05-01] MEDS: D5 IV PRN ×2 (06:41→18:58)
[2020-05-01] MEDS: MVI ADULT IV PRN ×2 (06:41→18:58)
[2020-05-01] MEDS: NACL IV PRN ×2 (06:41→18:58)
[2020-05-01] MEDS: FOLIC ACID IV PRN ×2 (06:41→18:58)
[2020-05-01 06:46] LABS: CREATININE 0.9 mg/dL (0.6-1.3); MAGNESIUM 2.6 mg/dL (1.8-2.4); PHOSPHOROUS 1.2 mg/dL (2.5-4.9); POTASSIUM 3.4 mmol/L (3.5-5.1)
[2020-05-01] MEDS ORDERED: POTASSIUM PHOSPHATE MM 15 MMOL in IV NORMAL SALINE 250 ML IV ONE (07:45)
[2020-05-01] MEDS ORDERED: FAMOTIDINE 20 MG TABLET PO SCH (09:00)
[2020-05-01] MEDS: PANTOPRAZOLE SODIUM 40 MG TABLET.DR PO SCH (09:09)
[2020-05-01] MEDS: levETIRAcetam 500 MG TABLET PO SCH ×2 (09:09→21:03)
[2020-05-01] MEDS: THIAMINE HCL INJ 100 MG in IV DEXTROSE 5% 50 ML IV SCH (09:10)
[2020-05-01] MEDS: POTASSIUM PHOSPHATE MM 7.5 MMOL in IV NORMAL SALINE 97.5 ML IV SCH ×2 (10:32→14:20)
[2020-05-01] MEDS: INSULIN REGULAR, HUMAN 300 UNIT/3 ML VIAL SQ PRN (12:16)
[2020-05-01 12:48] VITALS: BP 145/81
[2020-05-01 16:20] VITALS: BP 156/104
[2020-05-01 20:23] VITALS: BP 162/100
[2020-05-01] MEDS: ACETAMINOPHEN 325 MG TABLET PO PRN (21:12)
[2020-05-02 00:22] VITALS: BP 162/82
[2020-05-02] MEDS: BLOOD SUGAR DIAGNOSTIC 1 EACH STRIP VI SCH ×6 (01:00→20:34)
[2020-05-02 05:04] VITALS: BP 158/93
[2020-05-02 06:44] LABS: BASOPHILS % (AUTO) 0.5 % (0.0-2.0); EOSINOPHILS # (AUTO) 0.1 K/uL (0.0-0.7); EOSINOPHILS % (AUTO) 2.5 % (0.0-7.0); HEMATOCRIT 24.8 % (31.2-41.9); HEMOGLOBIN 8.4 g/dL (10.9-14.3); LYMPHOCYTES # (AUTO) 1.4 K/uL (20.0-40.0); LYMPHOCYTES % (AUTO) 37.7 % (20.5-51.5); MEAN CORPUSCULAR HEMOGLOBIN 30.2 uug (24.7-32.8); MEAN CORPUSCULAR HGB CONC 34 g/dL (32.3-35.6); MONOCYTES # (AUTO) 0.2 K/uL (2.0-10.0); MONOCYTES % (AUTO) 5.7 % (0.0-11.0); NEUTROPHILS % (AUTO) 53.6 % (38.5-71.5); PLATELET COUNT (AUTO) 135 K/uL (179-408); RED BLOOD CELL COUNT(AUTO) 2.78 MIL/uL (3.63-4.92); WHITE BLOOD COUNT (AUTO) 3.8 K/uL (3.8-11.8)
[2020-05-02 07:00] LABS: CREATININE 0.8 mg/dL (0.6-1.3); MAGNESIUM 1.7 mg/dL (1.8-2.4); PHOSPHOROUS 2.5 mg/dL (2.5-4.9); POTASSIUM 3.6 mmol/L (3.5-5.1)
[2020-05-02] MEDS: NACL IV PRN (07:07)
[2020-05-02] MEDS: FOLIC ACID IV PRN (07:07)
[2020-05-02] MEDS: MVI ADULT IV PRN (07:07)
[2020-05-02] MEDS: D5 IV PRN (07:07)
--- NOTE | 2020-05-02 08:00 | NUR ---
Awake. alert, oriented x 4, ambulatory, unsteady gait, assisted. Sponge bath done. IVF infusing. BG monitored
[2020-05-02] MEDS: PANTOPRAZOLE SODIUM 40 MG TABLET.DR PO SCH (09:25)
[2020-05-02] MEDS: levETIRAcetam 500 MG TABLET PO SCH ×2 (09:25→20:28)
[2020-05-02] MEDS: MAGNESIUM SULFATE/D5W 100 ML IV SCH ×2 (09:32→11:54)
[2020-05-02] MEDS: THIAMINE HCL INJ 100 MG in IV DEXTROSE 5% 50 ML IV SCH (09:34)
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
[2020-05-02 11:40] VITALS: BP 150/73
--- NOTE | 2020-05-02 12:00 | NUR ---
Mg 1.7, Magnesium 2 gm IV infusing.
[2020-05-02] MEDS: INSULIN REGULAR, HUMAN 300 UNIT/3 ML VIAL SQ PRN (12:23)
--- NOTE | 2020-05-02 14:00 | NUR ---
Assisted out of bed, tolerated ambulating with FWW
[2020-05-02 16:04] VITALS: BP 135/81
--- NOTE | 2020-05-02 18:25 | NUR ---
IVF infusing. No seizure noted. BG WNL. Tele SR
--- NOTE | 2020-05-02 19:20 | NUR ---
Received patient lying in bed. AAOx4. In no acute distress. Denies any pain or SOB. NSR on tele at 72/min. IV site on right wrist intact and patent. IVF infusing. Safety measure initiated and call marshall within reached.
[2020-05-02 20:13] VITALS: BP 124/94
[2020-05-03] VITALS: BP 134/82
[2020-05-03] MEDS: BLOOD SUGAR DIAGNOSTIC 1 EACH STRIP VI SCH ×3 (00:52→11:18)
[2020-05-03 04:00] VITALS: BP 140/73
[2020-05-03] MEDS: NACL IV PRN ×2 (04:29→10:45)
[2020-05-03] MEDS: D5 IV PRN ×2 (04:29→10:45)
[2020-05-03] MEDS: FOLIC ACID IV PRN ×2 (04:29→10:45)
[2020-05-03] MEDS: MVI ADULT IV PRN ×2 (04:29→10:45)
[2020-05-03 06:05] LABS: BASOPHILS % (AUTO) 0.9 % (0.0-2.0); HEMATOCRIT 23.6 % (31.2-41.9); LYMPHOCYTES # (AUTO) 1.6 K/uL (20.0-40.0); LYMPHOCYTES % (AUTO) 37.2 % (20.5-51.5); MEAN CORPUSCULAR HEMOGLOBIN 30.2 uug (24.7-32.8); MEAN CORPUSCULAR HGB CONC 34 g/dL (32.3-35.6); MEAN CORPUSCULAR VOLUME 89.5 fL (75.5-95.3); MONOCYTES # (AUTO) 0.3 K/uL (2.0-10.0); MONOCYTES % (AUTO) 6.2 % (0.0-11.0); NEUTROPHILS # (AUTO) 2.4 K/uL (1.8-8.9); NEUTROPHILS % (AUTO) 54.7 % (38.5-71.5); PLATELET COUNT (AUTO) 116 K/uL (179-408); RED BLOOD CELL COUNT(AUTO) 2.64 MIL/uL (3.63-4.92); WHITE BLOOD COUNT (AUTO) 4.3 K/uL (3.8-11.8)
[2020-05-03 06:17] LABS: CREATININE 0.8 mg/dL (0.6-1.3); MAGNESIUM 1.9 mg/dL (1.8-2.4); POTASSIUM 3.9 mmol/L (3.5-5.1)
--- NOTE | 2020-05-03 06:27 | NUR ---
Patient remains AAOx4. In no acute distress. No complain of pain or SOB. NSR on tele at 66/min. IV site on right wrist intact and patent. IVF infusing. Needs attended to and met. Safety measure maintained and call marshall within reached.
[2020-05-03] MEDS ORDERED: INSULIN REGULAR, HUMAN 300 UNIT/3 ML VIAL SQ PRN (07:30)
--- NOTE | 2020-05-03 07:30 | NUR ---
Patient received resting in bed. No respiratory distress noted at this time, she is sating well on room air. IV is on the right wrist 20 gauge running D5 NS with multivitamin at 50mls/hr. Patient is awake, alert and oriented times 4. Previous nurse converted patient to ACHS, morning BG is 101 requiring no coverage. Seizure precautions are in place. Safety precaution implemented, bed in the lowest position and locked with call light and belongings within reach. Will continue to monitor.
[2020-05-03] MEDS: PANTOPRAZOLE SODIUM 40 MG TABLET.DR PO SCH (08:45)
[2020-05-03] MEDS: levETIRAcetam 500 MG TABLET PO SCH (08:45)
[2020-05-03] MEDS: THIAMINE HCL INJ 100 MG in IV DEXTROSE 5% 50 ML IV SCH (11:04)
--- NOTE | 2020-05-03 11:04 | NUR ---
Pharmacy brought up patient's IV late. Will administer now.
[2020-05-03 11:41] VITALS: BP 133/74
--- NOTE | 2020-05-03 14:20 | NUR ---
Patient decided to leave AMA, she signed the AMA form and removed her own IV got dressed and walked out the facility. ALFA Pathak escorted her down to security. Patient also signed the belongings list. She said she would come back for her medication prescription. I gave her a direct line to the nurses station and made the MD aware. He sent her prescription to the preferred pharmacy on file.
--- NOTE | 2020-05-03 14:22 | NUR ---
12:30pm: This SW was informed by caser in [place] that patient's insurance will not authorize SNF placement for the patient since patient does not have any skilled needs and is walking 150 feet. This SW and CM to follow-up with the patient regarding discharge plans. 1:35pm: SW arrived to med/surg to check-in with the patient regarding discharge plans. SW spoke with patient's nurse Tahmina, who stated that patient has orders for DC today. Tahmina stated that earlier today patient had told Tahmina that a friend was going to pick the patient up from the hospital. SW then went to meet with the patient, who was awake, alert, oriented x 4, sitting up in her bed and receptive to speaking with this SW. Discharge plans were discussed. Patient stated that she was fine with being discharged today. Living arrangements discussed, and this SW offered shelters. Patient declined shelters. SW asked patient about the housing arrangements she was working on yesterday with [facility], and patient stated that she is waiting to hear back from the caser in, however was fine with leaving the hospital today. SW reminded patient of the homeless resource packet that DARLENE had provided the patient with yesterday, and patient acknowledged receiving the packet and stated that she still has it with her. SW asked patient if she needed assistance with transportation and offered patient a 1 day bus pass, and patient declined the offer, stating that she has her own bus pass. SW offered patient clothing, and patient stated that she has a lot of clothing with her, along with more clothing in her storage. SW asked patient if she had any other questions or concerns, and patient stated that she did not. Patient thanked DARLENE for her time and resources provided. SW informed patient's nurse Tahmina of above, and also reminded Tahmina to have the patient sign the Homeless Patient Waiver Form. Tahmina stated that she will have the patient sign the form. This SW informed ALEXANDR Goodman of above.
[2020-05-03] MEDS ORDERED: MULT-24 PO (14:23)
[2020-05-03] MEDS ORDERED: ATOR10TA PO (14:23)
[2020-05-03] MEDS ORDERED: LEVE500T9 PO (14:23)
--- NOTE | 2020-05-03 14:25 | NUR ---
Completed patient visit as a discharge since i was already in the process of completing it when the patient said she had to leave to get to her band before it closed. Patient said she will return to get forms and medication information. Gave her direct line to nurses station to call when she was ready. made aware.
[2020-05-03] MEDS ORDERED: MAGN400C PO (14:30)
[2020-05-03] MEDS ORDERED: ATORVASTATIN 10 MG TABLET PO SCH (21:00)
[2020-05-04] MEDS ORDERED: MULTIVITAMINS,THERAPEUTIC TABLET PO SCH (09:00)
== END 2020-05-03 19:00 | disposition home or self-care (01) | DRG 100 ==
LOC: ER 01:53 → TELE3 08:14 → MEDSURG3 05-03 07:50
PROVIDERS: ADMIT Family Medicine; ATTEND Internal Medicine
DX: G40.909 Epilepsy, unspecified, not intractable, without status epilepticus (principal); N17.0 Acute kidney failure with tubular necrosis; D68.69 Other thrombophilia; E87.2 Acidosis; F10.239 Alcohol dependence with withdrawal, unspecified; L97.929 Non-pressure chronic ulcer of unspecified part of left lower leg with unspecified severity; L97.919 Non-pressure chronic ulcer of unspecified part of right lower leg with unspecified severity; D69.6 Thrombocytopenia, unspecified; E83.42 Hypomagnesemia; E78.5 Hyperlipidemia, unspecified; I25.10 Atherosclerotic heart disease of native coronary artery without angina pectoris; Z59.0 Homelessness; F17.210 Nicotine dependence, cigarettes, uncomplicated; E87.6 Hypokalemia; D64.9 Anemia, unspecified; R73.9 Hyperglycemia, unspecified; Z86.73 Personal history of transient ischemic attack (TIA), and cerebral infarction without residual deficits; D57.1 Sickle-cell disease without crisis; F10.229 Alcohol dependence with intoxication, unspecified; Y90.9 Presence of alcohol in blood, level not specified; I87.2 Venous insufficiency (chronic) (peripheral); Z91.19 Patient's noncompliance with other medical treatment and regimen; K57.30 Diverticulosis of large intestine without perforation or abscess without bleeding; K80.20 Calculus of gallbladder without cholecystitis without obstruction; K40.20 Bilateral inguinal hernia, without obstruction or gangrene, not specified as recurrent; K76.0 Fatty (change of) liver, not elsewhere classified; Z79.899 Other long term (current) drug therapy
CPT/HCPCS: 36415; 70450; 71045; 72072; 83550; 83735; 84100; 84443; 85025; 93005; 93307; A4663; C9113; G0378; G0480; J1815; J1953; J2060; J2405; J3411; J3475; J3480; J3490; J7040; J7042; J7050; J7060

== ENCOUNTER 2020-06-05 14:36 | Emergency (ER) | payer OTHER ==
[~2020-06-05] VITALS: Ht 167.6 cm; Wt 66.7 kg
[~2020-06-05 14:36] MED LIST changes: +ATOR10TA PO; -LEVE500T20 PO; +LEVE500T9 PO; +MAGN400C PO; +MULT-24 PO; -PANT40TA2 PO
[2020-06-05 15:29] LABS: BASOPHILS # (AUTO) 0.1 K/uL (0.0-8.0); BASOPHILS % (AUTO) 1.2 % (0.0-2.0); EOSINOPHILS # (AUTO) 0.1 K/uL (0.0-0.7); EOSINOPHILS % (AUTO) 0.8 % (0.0-7.0); HEMATOCRIT 23.1 % (31.2-41.9); HEMOGLOBIN 7.9 g/dL (10.9-14.3); LYMPHOCYTES # (AUTO) 1.9 K/uL (20.0-40.0); LYMPHOCYTES % (AUTO) 27.6 % (20.5-51.5); MEAN CORPUSCULAR HEMOGLOBIN 30.6 uug (24.7-32.8); MEAN CORPUSCULAR HGB CONC 34 g/dL (32.3-35.6); MEAN CORPUSCULAR VOLUME 90.1 fL (75.5-95.3); MONOCYTES # (AUTO) 0.3 K/uL (2.0-10.0); MONOCYTES % (AUTO) 4.9 % (0.0-11.0); NEUTROPHILS # (AUTO) 4.6 K/uL (1.8-8.9); NEUTROPHILS % (AUTO) 65.5 % (38.5-71.5); PLATELET COUNT (AUTO) 251 K/uL (179-408); RED BLOOD CELL COUNT(AUTO) 2.57 MIL/uL (3.63-4.92)
[2020-06-05 15:39] LABS: BILIRUBIN,TOTAL 0.6 mg/dL (0.2-1.0); CREATININE 1.1 mg/dL (0.6-1.3); POTASSIUM 3.7 mmol/L (3.5-5.1); TOTAL PROTEIN, SERUM 7.5 g/dL (6.4-8.2)
[2020-06-05] MEDS ORDERED: HYDROCODONE/APAP 5-325MG TABLET PO ONE (16:30)
[2020-06-05] MEDS ORDERED: HYDROCODONE/APAP 5-325MG TABLET ONE (16:38)
--- NOTE | 2020-06-05 16:59 | NUR ---
PT WAS D/C'd TO HOME. D/C INSTRUCTIONS GIVEN TO THE PT BY DR FIGUEROA.
[2020-06-05 17:00] VITALS: BP 139/72
== END 2020-06-05 17:01 | disposition home or self-care (01) ==
LOC: ER 14:39
DX: R60.0 Localized edema (principal); D64.9 Anemia, unspecified; E11.40 Type 2 diabetes mellitus with diabetic neuropathy, unspecified; Z86.73 Personal history of transient ischemic attack (TIA), and cerebral infarction without residual deficits; I25.10 Atherosclerotic heart disease of native coronary artery without angina pectoris; G40.909 Epilepsy, unspecified, not intractable, without status epilepticus; Z79.899 Other long term (current) drug therapy; R03.0 Elevated blood-pressure reading, without diagnosis of hypertension; Z59.0 Homelessness
CPT/HCPCS: 36415; 85025; A4663

== ENCOUNTER 2020-07-23 22:58 | Inpatient (IN) | payer OTHER ==
[~2020-07-23] VITALS: Ht 167.6 cm; Wt 59.4 kg
[2020-07-24] MEDS ORDERED: levETIRAcetam 250 MG TABLET PO ONE
[2020-07-24] MEDS ORDERED: levETIRAcetam 250 MG TABLET ONE (00:19)
[2020-07-24] MEDS ORDERED: levETIRAcetam IV 1,000 MG in IV DEXTROSE 5% 100 ML IV ONE (00:30)
[2020-07-24] MEDS ORDERED: ONDANSETRON 4 MG/2 ML VIAL IV ONE (00:30)
[2020-07-24 00:42] LABS: CREATININE 1.2 mg/dL (0.6-1.3); POTASSIUM 3.7 mmol/L (3.5-5.1)
[2020-07-24 00:44] LABS: BASOPHILS % (AUTO) 0.7 % (0.0-2.0); EOSINOPHILS % (AUTO) 0.5 % (0.0-7.0); HEMATOCRIT 25.5 % (31.2-41.9); HEMOGLOBIN 8.4 g/dL (10.9-14.3); LYMPHOCYTES % (AUTO) 28.1 % (20.5-51.5); MEAN CORPUSCULAR HEMOGLOBIN 30.7 uug (24.7-32.8); MEAN CORPUSCULAR HGB CONC 33 g/dL (32.3-35.6); MEAN CORPUSCULAR VOLUME 93.5 fL (75.5-95.3); MONOCYTES # (AUTO) 0.4 K/uL (2.0-10.0); MONOCYTES % (AUTO) 5.4 % (0.0-11.0); NEUTROPHILS # (AUTO) 4.5 K/uL (1.8-8.9); NEUTROPHILS % (AUTO) 65.3 % (38.5-71.5); PLATELET COUNT (AUTO) 119 K/uL (179-408); RED BLOOD CELL COUNT(AUTO) 2.73 MIL/uL (3.63-4.92); WHITE BLOOD COUNT (AUTO) 6.9 K/uL (3.8-11.8)
[2020-07-24 00:48] LABS: BILIRUBIN,DIRECT 0.3 mg/dL (0.0-0.2); BILIRUBIN,TOTAL 0.7 mg/dL (0.2-1.0); TOTAL PROTEIN, SERUM 8.1 g/dL (6.4-8.2)
[2020-07-24] MEDS ORDERED: levETIRAcetam 500 MG/5 ML VIAL IV ONE (01:11)
[2020-07-24] MEDS ORDERED: IV NORMAL SALINE 1000 ML BAG IV ONE (01:15)
[2020-07-24] MEDS ORDERED: ONDANSETRON 4 MG/2 ML VIAL ONE (01:16)
--- NOTE | 2020-07-24 01:29 | NUR ---
SALINE LOCK PALCED, ZOFRAN ADMINISTERED, KEPPRA IVPB INFUSING. PT POSITIONED FOR COMFORT.
--- NOTE | 2020-07-24 01:30 | NUR ---
PHARMACY NOTE; ZOFRAN WAS ADMINISTERED TO LEFT FOREARM IV .
[2020-07-24 01:42] LABS: ABG BASE EXCESS -10.3 mmol/L; ABG HCO3 14.2 mmol/L; ABG PCO2 26.4 mmHg (35.0-45.0); ABG SITE RIGHT RADIAL; ABG TOTAL HEMOGLOBIN 7.6 G/dL (12.0-16.0); COHb 2.2 % (0.5-1.5); MetHb 0.5 % (0.0-1.5); O2Hb 93.9 % (94.0-97.0); VENT MODE Room Air
[2020-07-24 02:07] LABS: *BILIRUBIN,URIN 2+ (NEGATIVE); *CLARITY,URINE CLEAR (CLEAR); *COLOR,URINE YELLOW (YELLOW); *KETONES,URINE 3+ (NEGATIVE); *UROBILINOGEN,URINE 0.2 E.U./dl (NORMAL); LEUKOCYTE ESTERASE ,URINE NEGATIVE (NEGATIVE); NITRITE, URINE NEGATIVE (NEGATIVE); PH,URINE 5.5 (5.0-8.0); UGLUCOSE NEGATIVE (NEGATIVE)
--- NOTE | 2020-07-24 02:09 | NUR ---
PHARMACY NOTE; KEPPRA IVPB INFUSION ENDED AT 0208 VALERIE LEFT FOREARM IV
[2020-07-24 02:11] LABS: *BLOOD, URINE TRACE LYSED (NEGATIVE)
[2020-07-24 03:46] LABS: CREATININE 1.1 mg/dL (0.6-1.3); POTASSIUM 3.3 mmol/L (3.5-5.1)
--- NOTE | 2020-07-24 04:21 | NUR ---
PHARMACY NOTE; 1L 0.9 NS INFUSION COMPLETED AT 0241 TO LEFT FOREARM IV.
[2020-07-24 04:52] LABS: BACTERIA,URINE NONE SEEN /HPF (NONE SEEN); RBC,URINE 0-3 /HPF (0-3); SQUAMOUS EPITHELIAL CELL,UR FEW /HPF (NONE SEEN); WBC,URINE 0-3 /HPF (0-3)
--- NOTE | 2020-07-24 04:52 | NUR ---
PRESENTLY PT RESTING, NO DISTRESS NOTED, ADMISION LUSTERER CALLING [facility] FOR ADMISSION.
[2020-07-24] MEDS ORDERED: PIPERACILLIN SODIUM/TAZOBACTAM 3.375 G in IV DEXTROSE 5% 50 ML IV ONE (05:15)
[2020-07-24] MEDS ORDERED: IV NORMAL SALINE 500 ML IV ONE (05:15)
[2020-07-24] MEDS ORDERED: PIPERACILLIN/TAZOBACTAM/D5W 50 ML IV ONE (05:35)
--- NOTE | 2020-07-24 06:08 | NUR ---
[facility] REP CALLED TO INFORM US THAT THE PT IS TO GO TO [facility] AND ACCEPTING MD IS DR EMERY.
--- NOTE | 2020-07-24 07:24 | NUR ---
SBAR REPORT TO GLORY JUNIOR.
--- NOTE | 2020-07-24 07:27 | NUR ---
PT RESTING IN BED, AROUSABLE, VSS.
--- NOTE | 2020-07-24 07:59 | NUR ---
AROLDO CALLED FROM [facility] AND SAID THAT DR. EMERY WANTS THE PT GO TO [facility]LO[facility], THAT IS WHY ITS GONNE TAKE LONGER FOR BED TO BE AVAILABLE.
--- NOTE | 2020-07-24 08:10 | NUR ---
[facility] bf tray at bedside,
--- NOTE | 2020-07-24 10:36 | NUR ---
RADHA FROM [facility] CALLED AND SAID THEY ARE WORKING ON THE CASE.
[2020-07-24] MEDS ORDERED: ONDANSETRON ODT 4 MG TAB.RAPDIS ONE ×2 (11:13→19:28)
[2020-07-24] MEDS ORDERED: ONDANSETRON ODT 4 MG TAB.RAPDIS SL ONE ×2 (11:15→19:15)
--- NOTE | 2020-07-24 12:50 | NUR ---
hospital lunch tray at bedside.
--- NOTE | 2020-07-24 17:14 | NUR ---
Disposition Note 17 18 :This sports book writer and Dr ROBBY Patiño spoke with Yusra director of case management at [facility] ([phone]) and complained re the extended wait time for this patient in ED. Dr Armendariz advised Yusra that this wait was unacceptable and advised that they need to authorize [facility] to admit this patient or we would order transportation to [facility]. Will await callback from
--- NOTE | 2020-07-24 17:29 | NUR ---
Michael Authorization Spoke with Michael Meng ([phone]) who authorized admission to [facility] under [facility] with authorization number [id number].
--- NOTE | 2020-07-24 19:48 | NUR ---
Patient will be tele admit per Dr. Chaves
--- NOTE | 2020-07-24 20:50 | NUR ---
Patient will be going to 305
--- NOTE | 2020-07-24 21:21 | NUR ---
Per Anitha RN patient will be going to 306.
[2020-07-24] MEDS ORDERED: ACETAMINOPHEN 325 MG TABLET PO PRN (22:00)
[2020-07-24] MEDS ORDERED: ONDANSETRON 4 MG/2 ML VIAL IV PRN (22:00)
[2020-07-24] MEDS ORDERED: Z GUARD REMEDY PASTE 57 GM TUBE TOP PRN (22:00)
[2020-07-24] MEDS ORDERED: HYDROCODONE/APAP 5-325MG TABLET PO PRN (22:00)
[2020-07-24] MEDS ORDERED: MAGNESIUM HYDROXIDE 30 ML LIQUID UDC PO PRN (22:00)
--- NOTE | 2020-07-24 22:16 | NUR ---
Patient transported to room 306 in stable condition.
--- NOTE | 2020-07-24 22:45 | NUR ---
PATIENT TRANSPORTED TO UNIT VIA W/C. PATIENT IS ALERT AND VERBALLY RESPONSIVE. CAN MAKE NEEDS KNOWN. ORIENTED TO UNIT, BED, AND CONTROLS. BODY CHECK DONE. FALL AND SAFETY PRECAUTIONS OBSERVED. ALL NEEDS ANTICIPATED AND ATTENDED.
[2020-07-24 23:08] VITALS: BP 114/90
[2020-07-25] MEDS ORDERED: PIPERACILLIN SODIUM/TAZOBACTAM 3.375 G in IV DEXTROSE 5% 50 ML IV ONE ×2
[2020-07-25] MEDS ORDERED: PIPERACILLIN SODIUM/TAZOBACTAM 3.375 G in IV DEXTROSE 5% 50 ML IV SCH ×2
[2020-07-25] MEDS ORDERED: PIPERACILLIN/TAZOBACTAM/D5W 50 ML IV ONE (00:16)
[2020-07-25] MEDS: IV 1/2NS 1000 ML 1,000 ML IV PRN ×2 (00:32→14:21)
[2020-07-25 00:58] VITALS: BP 123/67
--- NOTE | 2020-07-25 03:00 | NUR ---
PATIENT IS IN BED, SLEPT WELL. WITH PERIPHERAL LINE AT LEFT FOREARM, INTACT AND PATENT. DUE MEDICATIONS GIVEN AND TOLERATED WELL. WILL CONTINUE TO MONITOR PATIENT.
[2020-07-25 05:53] VITALS: BP 142/80
[2020-07-25] MEDS: levETIRAcetam IV 500 MG in IV DEXTROSE 5% 100 ML IV SCH ×2 (08:26→21:08)
[2020-07-25 09:05] LABS: CREATININE 1.3 mg/dL (0.6-1.3); PHOSPHOROUS 1.4 mg/dL (2.5-4.9); POTASSIUM 3.1 mmol/L (3.5-5.1)
[2020-07-25 10:07] LABS: BASOPHILS % (AUTO) 0.5 % (0.0-2.0); EOSINOPHILS # (AUTO) 0.1 K/uL (0.0-0.7); EOSINOPHILS % (AUTO) 1.2 % (0.0-7.0); LYMPHOCYTES # (AUTO) 1.6 K/uL (20.0-40.0); LYMPHOCYTES % (AUTO) 34.7 % (20.5-51.5); MEAN CORPUSCULAR HEMOGLOBIN 31.2 uug (24.7-32.8); MEAN CORPUSCULAR HGB CONC 34 g/dL (32.3-35.6); MEAN CORPUSCULAR VOLUME 91.8 fL (75.5-95.3); MONOCYTES # (AUTO) 0.3 K/uL (2.0-10.0); MONOCYTES % (AUTO) 7.1 % (0.0-11.0); NEUTROPHILS # (AUTO) 2.6 K/uL (1.8-8.9); NEUTROPHILS % (AUTO) 56.5 % (38.5-71.5); PLATELET COUNT (AUTO) 87 K/uL (179-408); WHITE BLOOD COUNT (AUTO) 4.5 K/uL (3.8-11.8)
[2020-07-25 10:08] LABS: RED BLOOD CELL COUNT(AUTO) 2.26 MIL/uL (3.63-4.92)
[2020-07-25 10:25] LABS: MAGNESIUM 1.1 mg/dL (1.8-2.4)
[2020-07-25 10:26] LABS: HEMATOCRIT 20.8 % (31.2-41.9); HEMOGLOBIN 7.1 g/dL (10.9-14.3)
--- NOTE | 2020-07-25 10:30 | NUR ---
NOTIFED DR JAY RE MAG LEVEL IS 1.1,POTASSIUM 3.1 PHOS 1.4 AND H/H IS 7.1/20.8 WITH NO NEW ORDERS AT THIS TIME.
[2020-07-25 12:04] VITALS: BP 136/73
[2020-07-25] MEDS: PIPERACILLIN SODIUM/TAZOBACTAM 3.375 G in IV DEXTROSE 5% 50 ML IV SCH ×2 (14:21→21:56)
[2020-07-25 15:44] LABS: THYROID STIMULATING HORMONE 2.983 mIU/mL (0.358-3.740)
[2020-07-25 16:00] VITALS: BP 132/71
[2020-07-25] MEDS ORDERED: NEUTRA PHOS PACKET PO ONE (16:00)
[2020-07-25] MEDS: MAGNESIUM SULFATE/D5W 100 ML IV SCH ×4 (16:17→19:58)
[2020-07-25] MEDS ORDERED: POTASSIUM CHLORIDE 20 MEQ TAB.PRT.SR PO ONE (17:00)
--- NOTE | 2020-07-25 18:23 | NUR ---
MID LINE RN HERE AND MID LINE INSERTED TO HER RIGHT UPPER ARM AND LEFT AC PERIPHERAL LINE REMOVED AND PATIENT TOLERATED PROCEDURE WELL.
[2020-07-25 18:58] LABS: BASOPHILS % (AUTO) 0.8 % (0.0-2.0); EOSINOPHILS % (AUTO) 0.9 % (0.0-7.0); HEMATOCRIT 22.2 % (31.2-41.9); HEMOGLOBIN 7.6 g/dL (10.9-14.3); LYMPHOCYTES # (AUTO) 1.1 K/uL (20.0-40.0); LYMPHOCYTES % (AUTO) 26.6 % (20.5-51.5); MEAN CORPUSCULAR HEMOGLOBIN 31.1 uug (24.7-32.8); MEAN CORPUSCULAR HGB CONC 34 g/dL (32.3-35.6); MEAN CORPUSCULAR VOLUME 91.3 fL (75.5-95.3); MONOCYTES # (AUTO) 0.3 K/uL (2.0-10.0); MONOCYTES % (AUTO) 7.1 % (0.0-11.0); NEUTROPHILS # (AUTO) 2.8 K/uL (1.8-8.9); NEUTROPHILS % (AUTO) 64.6 % (38.5-71.5); PLATELET COUNT (AUTO) 87 K/uL (179-408); WHITE BLOOD COUNT (AUTO) 4.3 K/uL (3.8-11.8)
[2020-07-25 18:59] LABS: RED BLOOD CELL COUNT(AUTO) 2.43 MIL/uL (3.63-4.92)
--- NOTE | 2020-07-25 20:00 | NUR ---
MAGNESSIUM COMPLETED ORDERED AND PATIENT REMAIN ON ATB AND IVF ORDERED WITH NO ADVERSE OR ALLERGIC REACTIONS AT THIS TIME CALL LIGHTS AND PERSONAL BELONGINGS ARE WITHIN EASY REACH WILL CONTINUE TO OBSERVE.
[2020-07-25 20:09] LABS: BAND % (MANUAL) 1 % (0-10); EOSINOPHILS % (MANUAL) 1 % (0-8); LYMPHOCYTES % (MANUAL) 35 % (20-40); MONOCYTES % (MANUAL) 7 % (2-10); NEUTROPHILS % (MANUAL) 56 % (42-75)
[2020-07-25 21:04] VITALS: BP 136/70
[2020-07-25 23:11] LABS: LYMPHOCYTES % (MANUAL) 35 % (20-40); MONOCYTES % (MANUAL) 5 % (2-10); NEUTROPHILS % (MANUAL) 60 % (42-75)
--- NOTE | 2020-07-26 | NUR ---
Pt received from nurse. VSS. Safety measures in place. Needs attended too. Will monitor and assess.
[2020-07-26 00:15] VITALS: BP 130/71
[2020-07-26 04:43] VITALS: BP 136/75
[2020-07-26] MEDS: PIPERACILLIN SODIUM/TAZOBACTAM 3.375 G in IV DEXTROSE 5% 50 ML IV SCH ×3 (05:39→21:36)
--- NOTE | 2020-07-26 06:57 | NUR ---
Patient handed off to AM nurse. All pertinent information provided. VSS. Stable condition. No pain/distress. All medications given on time. Will endorse to AM nurse.
--- NOTE | 2020-07-26 07:30 | NUR ---
Received patient resting in bed, awake alert and oriented times 4. Patient shows no evidence of distress. Safety precautions are in place. Will continue to monitor.
[2020-07-26 07:47] LABS: POTASSIUM 3.6 mmol/L (3.5-5.1)
[2020-07-26 08:54] LABS: BASOPHILS % (AUTO) 0.7 % (0.0-2.0); EOSINOPHILS # (AUTO) 0.1 K/uL (0.0-0.7); EOSINOPHILS % (AUTO) 1.8 % (0.0-7.0); HEMATOCRIT 21.5 % (31.2-41.9); LYMPHOCYTES # (AUTO) 1.1 K/uL (20.0-40.0); LYMPHOCYTES % (AUTO) 27.6 % (20.5-51.5); MEAN CORPUSCULAR HEMOGLOBIN 31.4 uug (24.7-32.8); MEAN CORPUSCULAR HGB CONC 34 g/dL (32.3-35.6); MEAN CORPUSCULAR VOLUME 92.3 fL (75.5-95.3); MONOCYTES # (AUTO) 0.3 K/uL (2.0-10.0); MONOCYTES % (AUTO) 7.1 % (0.0-11.0); NEUTROPHILS # (AUTO) 2.6 K/uL (1.8-8.9); NEUTROPHILS % (AUTO) 62.8 % (38.5-71.5); PLATELET COUNT (AUTO) 90 K/uL (179-408); WHITE BLOOD COUNT (AUTO) 4.1 K/uL (3.8-11.8)
[2020-07-26 08:55] LABS: HEMOGLOBIN 7.3 g/dL (10.9-14.3); RED BLOOD CELL COUNT(AUTO) 2.33 MIL/uL (3.63-4.92)
[2020-07-26] MEDS: levETIRAcetam IV 500 MG in IV DEXTROSE 5% 100 ML IV SCH ×2 (09:08→20:52)
[2020-07-26] MEDS ORDERED: PANTOPRAZOLE SODIUM 40 MG VIAL IV SCH (11:15)
[2020-07-26 12:00] VITALS: BP 121/67
[2020-07-26] MEDS: IV 1/2NS 1000 ML 1,000 ML IV PRN (14:37)
[2020-07-26 16:00] VITALS: BP 128/76
[2020-07-26] MEDS ORDERED: NEUTRA PHOS PACKET PO ONE (17:00)
[2020-07-26 20:04] VITALS: BP 131/65
--- NOTE | 2020-07-26 20:15 | NUR ---
Left patient resting in bed no sign of distress noted. Gave all medications as ordered. Will endorse to oncoming nurse.
[2020-07-26] MEDS: FAMOTIDINE. 20 MG/2 ML VIAL IV SCH (20:52)
--- NOTE | 2020-07-26 21:00 | NUR ---
RECEIVED PATIENT IN BED AWAKE ALERT AND ORIENTED VERBALISES NEEDS AT THIS TIME REMAIN ON ATB ORDERED WITH NO ADVERSE OR ALLERGIC REACTIONS AT THIS TIME IVF IN PROGRESS ORDERED NO SEIZURE ACTIVITIES AT THIS TIME CALL LIGHTS AND PERSONAL BELONGINGS ARE WITHIN EASY REACH MADE COMFORTABLE WILL CONTINUE TO OBSERVE.
[2020-07-27] VITALS: BP 147/82
[2020-07-27 04:00] VITALS: BP_SYST 128; BP_SYST 147; BP_DIAS 71; BP_DIAS 82
[2020-07-27] MEDS: IV 1/2NS 1000 ML 1,000 ML IV PRN (04:55)
[2020-07-27] MEDS: PIPERACILLIN SODIUM/TAZOBACTAM 3.375 G in IV DEXTROSE 5% 50 ML IV SCH (05:07)
--- NOTE | 2020-07-27 06:17 | NUR ---
PATIENT REMAIN ON IVPB ORDERED WITH NO ADVERSE OR ALLERGIC REACTIONS AT THIS TIME NO SEIZURE ACTIVITY RESTED WELL WITH NO C/O AT THIS TIME
[2020-07-27 07:29] LABS: CREATININE 0.8 mg/dL (0.6-1.3); PHOSPHOROUS 3.2 mg/dL (2.5-4.9); POTASSIUM 3.3 mmol/L (3.5-5.1)
--- NOTE | 2020-07-27 07:30 | NUR ---
Received patient in bed awake, alert and oriented times 4. No sign of distress noted at this time. Patient is on seizure precautions. Safety precautions are in place with call light and belongings within reach. Will continue to monitor.
[2020-07-27] MEDS: levETIRAcetam IV 500 MG in IV DEXTROSE 5% 100 ML IV SCH (08:42)
[2020-07-27] MEDS: FAMOTIDINE. 20 MG/2 ML VIAL IV SCH (08:42)
[2020-07-27] MEDS ORDERED: SOD FERRIC GLUC COMPLX/SUCROSE 125 MG in IV NORMAL SALINE 100 ML IV ONE (11:00)
[2020-07-27 11:46] VITALS: BP 145/73
[2020-07-27] MEDS: POTASSIUM CHLORIDE 50 ML IV SCH ×2 (11:52→13:20)
[2020-07-27 13:01] LABS: BASOPHILS % (AUTO) 0.8 % (0.0-2.0); EOSINOPHILS % (AUTO) 0.7 % (0.0-7.0); HEMATOCRIT 23.1 % (31.2-41.9); HEMOGLOBIN 7.7 g/dL (10.9-14.3); LYMPHOCYTES # (AUTO) 1.6 K/uL (20.0-40.0); LYMPHOCYTES % (AUTO) 30.4 % (20.5-51.5); MEAN CORPUSCULAR HEMOGLOBIN 30.9 uug (24.7-32.8); MEAN CORPUSCULAR HGB CONC 33 g/dL (32.3-35.6); MEAN CORPUSCULAR VOLUME 93.1 fL (75.5-95.3); MONOCYTES # (AUTO) 0.4 K/uL (2.0-10.0); NEUTROPHILS # (AUTO) 3.1 K/uL (1.8-8.9); NEUTROPHILS % (AUTO) 60.1 % (38.5-71.5); PLATELET COUNT (AUTO) 113 K/uL (179-408); WHITE BLOOD COUNT (AUTO) 5.1 K/uL (3.8-11.8)
[2020-07-27 13:35] LABS: RED BLOOD CELL COUNT(AUTO) 2.48 MIL/uL (3.63-4.92)
[2020-07-27] MEDS ORDERED: ASCO-376 PO (13:51)
[2020-07-27] MEDS ORDERED: LEVE500T9 PO (13:51)
[2020-07-27] MEDS ORDERED: FERR325T28 PO (13:51)
[2020-07-27] MEDS ORDERED: PIPERACILLIN SODIUM/TAZOBACTAM 3.37 G in IV DEXTROSE 5% 100 ML IV SCH (14:00)
[2020-07-27 16:00] VITALS: BP 120/69
--- NOTE | 2020-07-27 17:00 | NUR ---
Patient discharge to home with all her belongings, medications and discharge paperwork. All paperwork was signed and placed in patient's chart. IV and ID band removed. Discharge teachings completed. Patient given prescription by MD. All medications given as ordered. Patient left in stable condition.
[2020-07-27] MEDS ORDERED: levETIRAcetam 500 MG TABLET PO SCH (21:00)
== END 2020-07-27 17:10 | disposition home health service (06) | DRG 101 ==
LOC: ER 23:24 → TELE3 07-24 21:58 → MEDSURG3 07-26 07:55 → TELE3 07-26 11:40
PROVIDERS: ADMIT Student in an Organized Health Care Education/Training Program; ATTEND Nurse Practitioner Acute Care
PROC: 05HY33Z Insertion of Infusion Device into Upper Vein, Percutaneous Approach (ICD-10-PCS; principal; 2020-07-25)
DX: G40.909 Epilepsy, unspecified, not intractable, without status epilepticus (principal); E87.2 Acidosis; E86.0 Dehydration; D57.3 Sickle-cell trait; D69.6 Thrombocytopenia, unspecified; E87.6 Hypokalemia; E83.42 Hypomagnesemia; I25.10 Atherosclerotic heart disease of native coronary artery without angina pectoris; K57.90 Diverticulosis of intestine, part unspecified, without perforation or abscess without bleeding; Z82.49 Family history of ischemic heart disease and other diseases of the circulatory system; Z86.73 Personal history of transient ischemic attack (TIA), and cerebral infarction without residual deficits; K40.90 Unilateral inguinal hernia, without obstruction or gangrene, not specified as recurrent; E11.40 Type 2 diabetes mellitus with diabetic neuropathy, unspecified; R53.1 Weakness; D64.9 Anemia, unspecified
CPT/HCPCS: 36415; 36600; 70030-TC; 71045; 83605; 83735; 84100; 84443; 85025; 86850; 86900; 86901; 87040; 87086; 93005; C9113; G0378; J1953; J2405; J2543; J2916; J3475; J3480; J3490; J7030; J7040; J7060; Q0162

== ENCOUNTER 2020-08-30 20:31 | Inpatient (IN) | payer OTHER ==
[~2020-08-30] VITALS: Ht 172.7 cm; Wt 58.2 kg
[~2020-08-30 20:31] MED LIST changes: +ASCO-376 PO; +FERR325T28 PO
[2020-08-30] MEDS ORDERED: LEVE250T2 PO (20:46)
[2020-08-30] MEDS ORDERED: BENZ-13 PO (20:46)
[2020-08-30 21:40] LABS: POTASSIUM 3.2 mmol/L (3.5-5.1)
[2020-08-30 21:42] LABS: MEAN CORPUSCULAR HEMOGLOBIN 31.3 uug (24.7-32.8); WHITE BLOOD COUNT (AUTO) 8.4 K/uL (3.8-11.8)
[2020-08-30 21:44] LABS: BASOPHILS % (AUTO) 0.4 % (0.0-2.0); EOSINOPHILS # (AUTO) 0.1 K/uL (0.0-0.7); EOSINOPHILS % (AUTO) 0.8 % (0.0-7.0); HEMATOCRIT 21.9 % (31.2-41.9); LYMPHOCYTES # (AUTO) 2.1 K/uL (20.0-40.0); MEAN CORPUSCULAR HGB CONC 34 g/dL (32.3-35.6); MEAN CORPUSCULAR VOLUME 93.2 fL (75.5-95.3); MONOCYTES # (AUTO) 0.6 K/uL (2.0-10.0); MONOCYTES % (AUTO) 6.8 % (0.0-11.0); NEUTROPHILS # (AUTO) 5.6 K/uL (1.8-8.9); PLATELET COUNT (AUTO) 206 K/uL (179-408)
[2020-08-30 21:45] LABS: HEMOGLOBIN 7.4 g/dL (10.9-14.3); RED BLOOD CELL COUNT(AUTO) 2.35 MIL/uL (3.63-4.92)
[2020-08-30 21:53] LABS: BILIRUBIN,DIRECT 0.2 mg/dL (0.0-0.2); BILIRUBIN,TOTAL 0.5 mg/dL (0.2-1.0)
--- NOTE | 2020-08-31 04:01 | NUR ---
Ratna HIGH SCHOOL MUSIC DIRECTOR manager registration for [facility] accepted patient as in patient.
[2020-08-31] MEDS ORDERED: HYDROCODONE/APAP 10-325 MG TABLET ONE (04:11)
[2020-08-31] MEDS ORDERED: ONDANSETRON 4 MG/2 ML VIAL IV PRN (04:15)
[2020-08-31] MEDS ORDERED: ACETAMINOPHEN 325 MG TABLET PO PRN (04:15)
[2020-08-31] MEDS ORDERED: MORPHINE SULFATE 2 MG/1 ML DISP.SYRIN IV PRN (04:15)
[2020-08-31] MEDS ORDERED: HYDROCODONE/APAP 10-325 MG TABLET PO ONE (04:15)
[2020-08-31] MEDS ORDERED: MAGNESIUM HYDROXIDE 30 ML LIQUID UDC PO PRN (04:15)
[2020-08-31 05:00] VITALS: BP 147/75
--- NOTE | 2020-08-31 05:20 | NUR ---
Transfered to 2nd floor Tele via wheelchair with no distress noted.
--- NOTE | 2020-08-31 05:25 | NUR ---
RECEIVED PT FROM ER VIA WHEELCHAIR. UNDER THE CARE OF DARRYL DANG. DX; CHEST PAIN, ANEMIA. PT IN NO ACUTE DISTRESS. [facility] ASSESSMENT DONE. BELONGING LIST DONE. PT HAS HER OWN WHEELCHAUIR. PT HAD MEDICATIONS WILL BRING IT DOWN ON PHARMACY. ADMISSION PROCESS AND CARE PLAN INITIATED. SAFETY AND COMFORT PROVIDED. WILL CONTINUE TO MONITOR.
[2020-08-31] MEDS: HYDROCODONE/APAP 5-325MG TABLET PO PRN ×3 (05:59→21:13)
[2020-08-31] MEDS: PANTOPRAZOLE SODIUM 40 MG TABLET.DR PO SCH (06:03)
--- NOTE | 2020-08-31 06:19 | NUR ---
PT IN NO ACUTE DISTRESS. IV INTACT. PT GIVEN NORCO PRN MEDICATION FOR GENERALIZED PAIN. PT TOLERATED IT WELL. IV INTACT.SAFETY AND COMFORT PROVIDED. WILL ENDORSE TO INCOMING NURSE FOR CONTINUITY OF CARE.
--- NOTE | 2020-08-31 07:30 | NUR ---
Received pt in bed, awake, A&Ox4. Able to verbalize needs. NAD, no SOB. IV patent and intact. Safety measures in place, call light and belongings in reach. Pt c/o generalized pain 5/10 on adult scale. Pt stated she wants to try meditation and relaxation before medication. Will continue to monitor.
[2020-08-31 08:16] LABS: BILIRUBIN,TOTAL 0.7 mg/dL (0.2-1.0); CREATININE 0.8 mg/dL (0.6-1.3); PHOSPHOROUS 3.3 mg/dL (2.5-4.9); POTASSIUM 3.5 mmol/L (3.5-5.1); TOTAL PROTEIN, SERUM 6.9 g/dL (6.4-8.2)
[2020-08-31 08:19] LABS: BASOPHILS % (AUTO) 0.4 % (0.0-2.0); EOSINOPHILS # (AUTO) 0.1 K/uL (0.0-0.7); HEMATOCRIT 22.4 % (31.2-41.9); HEMOGLOBIN 7.5 g/dL (10.9-14.3); LYMPHOCYTES # (AUTO) 2.1 K/uL (20.0-40.0); LYMPHOCYTES % (AUTO) 25.6 % (20.5-51.5); MEAN CORPUSCULAR HEMOGLOBIN 31.3 uug (24.7-32.8); MEAN CORPUSCULAR HGB CONC 34 g/dL (32.3-35.6); MEAN CORPUSCULAR VOLUME 93.3 fL (75.5-95.3); MONOCYTES # (AUTO) 0.4 K/uL (2.0-10.0); MONOCYTES % (AUTO) 5.2 % (0.0-11.0); NEUTROPHILS # (AUTO) 5.6 K/uL (1.8-8.9); NEUTROPHILS % (AUTO) 67.8 % (38.5-71.5); PLATELET COUNT (AUTO) 188 K/uL (179-408); WHITE BLOOD COUNT (AUTO) 8.3 K/uL (3.8-11.8)
[2020-08-31] MEDS: BENZONATATE 100 MG CAPSULE PO SCH ×3 (08:53→16:46)
[2020-08-31] MEDS: levETIRAcetam 250 MG TABLET PO SCH (08:53)
[2020-08-31] MEDS ORDERED: POTASSIUM CHLORIDE 20 MEQ POWDER PACKET PO ONE (09:00)
[2020-08-31 09:15] LABS: MAGNESIUM 1.2 mg/dL (1.8-2.4)
[2020-08-31 10:33] LABS: *BILIRUBIN,URIN NEGATIVE (NEGATIVE); *CLARITY,URINE SLIGHTLY CLOUDY (CLEAR); *COLOR,URINE YELLOW (YELLOW); *KETONES,URINE NEGATIVE (NEGATIVE); *UROBILINOGEN,URINE 0.2 E.U./dl (NORMAL); LEUKOCYTE ESTERASE ,URINE NEGATIVE (NEGATIVE); NITRITE, URINE NEGATIVE (NEGATIVE); UGLUCOSE NEGATIVE (NEGATIVE)
[2020-08-31] MEDS: MAGNESIUM SULFATE/D5W 100 ML IV SCH ×4 (10:42→16:38)
[2020-08-31] MEDS: LOSARTAN POTASSIUM 50 MG TABLET PO SCH (10:48)
[2020-08-31 10:55] LABS: *BLOOD, URINE TRACE (NEGATIVE)
[2020-08-31 10:57] LABS: *AMPHETAMINE, URINE NEGATIVE (NEGATIVE); *CANNABINOID, URINE NEGATIVE (NEGATIVE); *COCCAINE, URINE NEGATIVE (NEGATIVE); *OPIATE, URINE POSITIVE (NEGATIVE); *PHENCYCLIDINE SCREEN,URINE NEGATIVE (NEGATIVE)
[2020-08-31] MEDS ORDERED: MAGNESIUM SULFATE/D5W 100 ML IV SCH (11:30)
[2020-08-31 11:47] VITALS: BP 163/84
[2020-08-31 16:31] VITALS: BP 153/88
[2020-08-31 16:58] LABS: BACTERIA,URINE FEW /HPF (NONE SEEN); RBC,URINE 0-3 /HPF (0-3); SQUAMOUS EPITHELIAL CELL,UR FEW /HPF (NONE SEEN); WBC,URINE 0-3 /HPF (0-3)
--- NOTE | 2020-08-31 19:30 | NUR ---
EOSS: Pt resting in bed. NAD, no SOB, no c/o discomfort at this time. All needs met during shift, care given as ordered. Due medications administered per order. Pt requested PRN [place], tolerated well with no s/s of adverse reaction, per pt it works. IV patent and intact. Safety measures in place, call light and belongings in reach. Will endorse care to shift leader.
[2020-08-31 20:00] VITALS: BP 158/93
[2020-09-01 00:30] VITALS: BP 160/93
[2020-09-01 04:18] VITALS: BP 159/89
[2020-09-01] MEDS: PANTOPRAZOLE SODIUM 40 MG TABLET.DR PO SCH (06:15)
--- NOTE | 2020-09-01 06:20 | NUR ---
PT SLEPT INTERMITTENTLY. PT IN NO ACUTE DISTRESS. IV INTACT. PRESCRIBED MEDICATION GIVEN AND PT TOLERATED IT WELL. PT GIVEN NORCO PRN AT 2113H FOR 8/10 PAIN SCALE. PT COMPLIANT WITH CARE. SAFETY AND COMFORT PROVIDED. WILL ENDORSE TO INCOMING NURSE FOR CONTINUITY OF CARE.
[2020-09-01 07:09] LABS: BASOPHILS % (AUTO) 0.2 % (0.0-2.0); EOSINOPHILS # (AUTO) 0.1 K/uL (0.0-0.7); EOSINOPHILS % (AUTO) 0.7 % (0.0-7.0); HEMATOCRIT 22.9 % (31.2-41.9); HEMOGLOBIN 7.6 g/dL (10.9-14.3); LYMPHOCYTES # (AUTO) 1.2 K/uL (20.0-40.0); MEAN CORPUSCULAR HEMOGLOBIN 31.5 uug (24.7-32.8); MEAN CORPUSCULAR HGB CONC 33 g/dL (32.3-35.6); MEAN CORPUSCULAR VOLUME 95.2 fL (75.5-95.3); MONOCYTES # (AUTO) 0.5 K/uL (2.0-10.0); MONOCYTES % (AUTO) 5.6 % (0.0-11.0); NEUTROPHILS # (AUTO) 7.3 K/uL (1.8-8.9); NEUTROPHILS % (AUTO) 80.5 % (38.5-71.5); PLATELET COUNT (AUTO) 160 K/uL (179-408); WHITE BLOOD COUNT (AUTO) 9.1 K/uL (3.8-11.8)
[2020-09-01 07:15] LABS: RED BLOOD CELL COUNT(AUTO) 2.41 MIL/uL (3.63-4.92)
[2020-09-01 07:34] LABS: CREATININE 0.7 mg/dL (0.6-1.3); POTASSIUM 3.5 mmol/L (3.5-5.1)
--- NOTE | 2020-09-01 08:00 | NUR ---
Received PT in bed, awake AO X 4. No acute distress or SOB noted. PT is cooperative and pleasant. PT makes needs known to staff. No complain of pain noted at the time. Stated that they did not have a full night sleep and requested to get rest during the day. PT in bed with safety measures, call light within reach, bed low and lock. Will continue to monitor.
[2020-09-01 08:24] VITALS: BP 176/96
[2020-09-01] MEDS: BENZONATATE 100 MG CAPSULE PO SCH ×3 (08:50→16:44)
[2020-09-01] MEDS: levETIRAcetam 250 MG TABLET PO SCH (08:50)
[2020-09-01] MEDS: LOSARTAN POTASSIUM 50 MG TABLET PO SCH (08:50)
[2020-09-01 12:21] VITALS: BP 132/78
--- NOTE | 2020-09-01 15:00 | NUR ---
Spoke with Thanh, nurse practitioner, and received orders for discharge. Nurse carried out orders. PT aware of discharge.
[2020-09-01 16:04] VITALS: BP 152/89
--- NOTE | 2020-09-01 18:30 | NUR ---
PT changed and ready to leave. IV access removed with no swelling at site. Some bleeding noted d/t medications. Nurse applied pressure for 5 minutes and secured dressing. Paperwork, clothes, medications and valuables with patient. PT is pleasant and cooperative. Ambulates with wheelchair. Escorted PT down to lobby. No acute distress or SOB noted. No complain of pain. Patient is discharged.
== END 2020-09-01 19:11 | disposition home or self-care (01) | DRG 206 ==
LOC: ER 20:31 → TELE 08-31 04:11
PROVIDERS: ADMIT Nurse Practitioner Acute Care; ATTEND Nurse Practitioner Acute Care
DX: M94.0 Chondrocostal junction syndrome [Tietze] (principal); I49.2 Junctional premature depolarization; D57.1 Sickle-cell disease without crisis; E11.42 Type 2 diabetes mellitus with diabetic polyneuropathy; F17.210 Nicotine dependence, cigarettes, uncomplicated; G40.909 Epilepsy, unspecified, not intractable, without status epilepticus; I10 Essential (primary) hypertension; I25.10 Atherosclerotic heart disease of native coronary artery without angina pectoris; D64.9 Anemia, unspecified; Z71.6 Tobacco abuse counseling; I69.398 Other sequelae of cerebral infarction; R26.89 Other abnormalities of gait and mobility; Z20.822 Contact with and (suspected) exposure to COVID-19; G89.4 Chronic pain syndrome
CPT/HCPCS: 36415; 70030-TC; 71045; 83550; 83735; 84100; 85025; 85730; 93005; 93307; A4663; G0378; J3475

== ENCOUNTER 2020-10-17 23:10 | Emergency (ER) | payer OTHER ==
[~2020-10-17] VITALS: Ht 167.6 cm; Wt 55.5 kg
[~2020-10-17 23:10] MED LIST changes: -ASCO-376 PO; -ATOR10TA PO; +BENZ-13 PO; -FAMO-132 PO; -FERR325T28 PO; -FOLI1TAB16 PO; -IBUP-1954 PO; +LEVE250T2 PO; -LEVE500T9 PO; -MAGN400C PO; -MULT-24 PO
[2020-10-17 23:48] LABS: BASOPHILS % (AUTO) 0.2 % (0.0-2.0); EOSINOPHILS # (AUTO) 0.1 K/uL (0.0-0.7); EOSINOPHILS % (AUTO) 0.7 % (0.0-7.0); HEMATOCRIT 26.8 % (31.2-41.9); HEMOGLOBIN 9.2 g/dL (10.9-14.3); LYMPHOCYTES # (AUTO) 1.5 K/uL (20.0-40.0); LYMPHOCYTES % (AUTO) 17.4 % (20.5-51.5); MEAN CORPUSCULAR HEMOGLOBIN 30.3 uug (24.7-32.8); MEAN CORPUSCULAR HGB CONC 35 g/dL (32.3-35.6); MEAN CORPUSCULAR VOLUME 87.8 fL (75.5-95.3); MONOCYTES # (AUTO) 0.4 K/uL (2.0-10.0); MONOCYTES % (AUTO) 4.3 % (0.0-11.0); NEUTROPHILS # (AUTO) 6.8 K/uL (1.8-8.9); NEUTROPHILS % (AUTO) 77.4 % (38.5-71.5); PLATELET COUNT (AUTO) 153 K/uL (179-408); RED BLOOD CELL COUNT(AUTO) 3.05 MIL/uL (3.63-4.92); WHITE BLOOD COUNT (AUTO) 8.8 K/uL (3.8-11.8)
--- NOTE | 2020-10-17 23:50 | NUR ---
Covid swab collected and sent to laboratory.
[2020-10-17 23:57] LABS: CREATININE 1.2 mg/dL (0.6-1.3); POTASSIUM 3.5 mmol/L (3.5-5.1)
[2020-10-18] MEDS ORDERED: levETIRAcetam 250 MG TABLET PO ONE (01:15)
[2020-10-18] MEDS ORDERED: levETIRAcetam 250 MG TABLET ONE (01:17)
--- NOTE | 2020-10-18 01:17 | NUR ---
Patient discharged to home in stable condition. Written and verbal after care instructions given. Patient verbalizes understanding of instructions. Stressed follow up or return to ER for worsening s/s. Patient utilizes wheelchair for mobility. A/Ox4. All belongings returned to patient prior to departure.
[2020-10-18 01:19] VITALS: BP 159/90
--- NOTE | 2020-10-18 01:45 | NUR ---
Meghan arranged for patient, patient will wait in waiting room.
== END 2020-10-18 01:51 | disposition home or self-care (01) ==
LOC: ER 23:10
DX: R53.1 Weakness (principal); Z20.822 Contact with and (suspected) exposure to COVID-19; E11.40 Type 2 diabetes mellitus with diabetic neuropathy, unspecified; I25.10 Atherosclerotic heart disease of native coronary artery without angina pectoris; D57.3 Sickle-cell trait; F17.210 Nicotine dependence, cigarettes, uncomplicated; Z79.899 Other long term (current) drug therapy; D53.9 Nutritional anemia, unspecified; R94.31 Abnormal electrocardiogram [ECG] [EKG]; Z59.0 Homelessness
CPT/HCPCS: 36415; 85025; 93005; A4663

== ENCOUNTER 2020-11-26 14:28 | Emergency (ER) | payer OTHER ==
[~2020-11-26] VITALS: Ht 167.6 cm; Wt 63.5 kg
--- NOTE | 2020-11-26 14:28 | NUR ---
Per RA 83 assistant executive housekeeper report, this patient normally uses a wheelchair. This patient's wheelchair was brought by her "alcohol drinking rasheed" to [employer].
--- NOTE | 2020-11-26 14:29 | NUR ---
Per RA 83's verbal report, the patient's wheelchair will be in or near [employer].
[2020-11-26] MEDS ORDERED: levETIRAcetam 250 MG TABLET ONE (14:59)
[2020-11-26] MEDS ORDERED: levETIRAcetam 250 MG TABLET PO ONE (15:00)
[2020-11-26 15:23] LABS: POTASSIUM 3.7 mmol/L (3.5-5.1)
[2020-11-26] MEDS ORDERED: LEVE500T9 PO (15:34)
--- NOTE | 2020-11-26 15:45 | NUR ---
Patient is resting comfortably on gurney with eyes closed, NAD, for sobriety@this time
--- NOTE | 2020-11-26 18:30 | NUR ---
Patient is eating her peanut butter sandwich with very good appetite.
--- NOTE | 2020-11-26 18:51 | NUR ---
Dr [email or web address] & evaluating the patient. Patient just ate 2 whole peanut butter sandwiches with very good appetite.
[2020-11-26 19:07] LABS: BASOPHILS # (AUTO) 0.1 K/uL (0.0-8.0); BASOPHILS % (AUTO) 0.9 % (0.0-2.0); EOSINOPHILS % (AUTO) 0.8 % (0.0-7.0); HEMATOCRIT 25.3 % (31.2-41.9); HEMOGLOBIN 8.2 g/dL (10.9-14.3); LYMPHOCYTES # (AUTO) 3.1 K/uL (20.0-40.0); LYMPHOCYTES % (AUTO) 48.5 % (20.5-51.5); MEAN CORPUSCULAR HEMOGLOBIN 27.8 uug (24.7-32.8); MEAN CORPUSCULAR HGB CONC 33 g/dL (32.3-35.6); MEAN CORPUSCULAR VOLUME 85.6 fL (75.5-95.3); MONOCYTES # (AUTO) 0.4 K/uL (2.0-10.0); MONOCYTES % (AUTO) 6.2 % (0.0-11.0); NEUTROPHILS # (AUTO) 2.8 K/uL (1.8-8.9); NEUTROPHILS % (AUTO) 43.6 % (38.5-71.5); PLATELET COUNT (AUTO) 448 K/uL (179-408); RED BLOOD CELL COUNT(AUTO) 2.96 MIL/uL (3.63-4.92); WHITE BLOOD COUNT (AUTO) 6.5 K/uL (3.8-11.8)
--- NOTE | 2020-11-26 19:15 | NUR ---
Xrays were done, still for additional blood tests' results, endorsed to concrete paving supervisorSANDI Judd
[2020-11-26] MEDS ORDERED: IV D5/ 0.9% NACL 1,000 ML IV ONE (19:30)
--- NOTE | 2020-11-26 21:19 | NUR ---
Received call back from bee Morrison case briefer, requested to have face sheet and clinicals faxed to .
--- NOTE | 2020-11-26 21:51 | NUR ---
BS 67 - MD AWARE. VORBAC TO INCREASE D5/NS TO 150CC/HR. IVF CHANGED AT THIS TIME
[2020-11-26] MEDS: MAGNESIUM SULFATE/D5W 100 ML IV SCH ×2 (22:08→22:35)
--- NOTE | 2020-11-26 22:51 | NUR ---
BS 112 - MD AWARE, VORBAC TO DECREASE IVF TO 125CC/HR. IVF CHANGED AT THIS TIME
--- NOTE | 2020-11-27 00:09 | NUR ---
[facility] Room [address] Adam gonzalez ETA 0400 Report given to Caro JUNIOR Pt aware of pending transfer to [facility]. Pt states she does not want to be transferred. Pt continues to ask staff about purse and wheelchair. Per damián RN, wheelchair is at [employer] and purse is with friend. Pt verbalizes understanding. Pt requesting to use hosp wheelchair to go get her wheelchair. Unable to provide wheelchair at this time. Pt resting and MD aware of concerns. Belongings at bedside include: coat, shirt, and pants.
--- NOTE | 2020-11-27 02:36 | NUR ---
Pt requesting to leave. called to bedside. Pt refusing transfer. Pt will rest until am. VSS. aware of bs 84.
--- NOTE | 2020-11-27 03:28 | NUR ---
Transport arrived to transfer patient, pt refusing. MD and extension service specialist in charge at bedside discussing plan of care.
--- NOTE | 2020-11-27 05:12 | NUR ---
Pt ambulated to and from bathroom with 1 assist. OJ provided as requested.
[2020-11-27] MEDS ORDERED: ACETAMINOPHEN ES 500 MG TABLET PO ONE (05:30)
[2020-11-27] MEDS ORDERED: ACETAMINOPHEN ES 500 MG TABLET ONE (05:38)
--- NOTE | 2020-11-27 05:42 | NUR ---
DIMA SIGNED BY PATIENT AND .
[2020-11-27] MEDS ORDERED: ONDANSETRON 4 MG/2 ML VIAL ONE (06:06)
--- NOTE | 2020-11-27 06:07 | NUR ---
Pt actively vomiting. VORBAC to administer zofran 4mg IV stat and recheck BS (84). Pt requesting to be transferred at this time. lapping machine operator aware.
[2020-11-27] MEDS ORDERED: ONDANSETRON 4 MG/2 ML VIAL IV ONE (07:00)
--- NOTE | 2020-11-27 07:00 | NUR ---
RECEIVED REPORT FROM TECHNOLOGIST INFECTIOUS DISEASE RN. Pt is at CT. Pending CT results Pending transport ETA of filler picker at 0900
--- NOTE | 2020-11-27 07:02 | NUR ---
ED handoff given
--- NOTE | 2020-11-27 07:15 | NUR ---
Pt arrived via gurney, accompanied by application technician. aox4 with IV saline lock to L distal forearm. ra nad vss kept comfortable. monitored accordingly.
--- NOTE | 2020-11-27 09:06 | NUR ---
Transport ALS arrived at this time. Patient Tranfers to outside Facility Gaining Physician: Adam Chahal Location: [facility] all belongings with pt. etelvina muse ra. with intact L distal forearm saline lock g20
== END 2020-11-27 09:15 | disposition short-term general hospital (02) ==
LOC: ER 14:30
DX: G40.909 Epilepsy, unspecified, not intractable, without status epilepticus (principal); E11.649 Type 2 diabetes mellitus with hypoglycemia without coma; D57.3 Sickle-cell trait; E11.40 Type 2 diabetes mellitus with diabetic neuropathy, unspecified; G89.29 Other chronic pain; Z91.018 Allergy to other foods; F10.129 Alcohol abuse with intoxication, unspecified; Y90.8 Blood alcohol level of 240 mg/100 ml or more; Z99.3 Dependence on wheelchair; Z86.73 Personal history of transient ischemic attack (TIA), and cerebral infarction without residual deficits; D64.9 Anemia, unspecified; Z20.822 Contact with and (suspected) exposure to COVID-19; R94.31 Abnormal electrocardiogram [ECG] [EKG]; R11.10 Vomiting, unspecified
CPT/HCPCS: 36415; 70450; 73110; 73130; 80048; 80320; 82962 ×8; 85025; 87426; 93005; 96365; 96375; 99285; J2405; J3475; J7042; A4663; A9150; G0480

== ENCOUNTER 2021-01-11 16:11 | Emergency (ER) | payer OTHER ==
[~2021-01-11] VITALS: Ht 160 cm; Wt 56.2 kg
[~2021-01-11 16:11] MED LIST changes: +LEVE500T9 PO
[2021-01-11] MEDS ORDERED: HYDR-3980 PO (16:29)
[2021-01-11] MEDS ORDERED: HYDROCODONE/APAP 10-325 MG TABLET PO ONE (16:30)
[2021-01-11] MEDS ORDERED: SULFAMETH/TRIMETH 800/160 MG TABLET PO ONE (16:30)
[2021-01-11] MEDS ORDERED: SULFAMETH/TRIMETH 800/160 MG TABLET ONE (16:42)
[2021-01-11] MEDS ORDERED: HYDROCODONE/APAP 10-325 MG TABLET ONE (16:42)
--- NOTE | 2021-01-11 16:51 | NUR ---
Patient was given written and verbal discharge instructions. Patient verbalized understanding & compliance of instructions. Patient was ambulatory with steady gait while using her wheelchair as a walker. Patient refused offer of intermediate placement. Patient was given a list of available shelters in surrounding area.
== END 2021-01-11 16:51 | disposition home or self-care (01) ==
LOC: ER 16:12
DX: S90.412A Abrasion, left great toe, initial encounter (principal); L08.9 Local infection of the skin and subcutaneous tissue, unspecified; X58.XXXA Exposure to other specified factors, initial encounter; Y92.89 Other specified places as the place of occurrence of the external cause; Z59.0 Homelessness; E11.40 Type 2 diabetes mellitus with diabetic neuropathy, unspecified; G89.29 Other chronic pain; I25.10 Atherosclerotic heart disease of native coronary artery without angina pectoris; Z91.018 Allergy to other foods; Z79.899 Other long term (current) drug therapy
CPT/HCPCS: A4217; A4663

== ENCOUNTER 2021-08-24 08:55 | Inpatient (IN) | payer MEDICARE, OTHER ==
[~2021-08-24] VITALS: Ht 165.1 cm; Wt 63.0 kg
[2021-08-24 09:44] LABS: HEMATOCRIT 31.2 % (31.2-41.9); MEAN CORPUSCULAR HEMOGLOBIN 26.5 uug (24.7-32.8); MEAN CORPUSCULAR VOLUME 79.8 fL (75.5-95.3); PLATELET COUNT (AUTO) 328 K/uL (179-408)
[2021-08-24 09:59] LABS: CREATININE 1.1 mg/dL (0.6-1.3); POTASSIUM 4.7 mmol/L (3.5-5.1)
[2021-08-24 10:11] LABS: BILIRUBIN,DIRECT 0.2 mg/dL (0.0-0.2); BILIRUBIN,TOTAL 0.4 mg/dL (0.2-1.0); TOTAL PROTEIN, SERUM 8.7 g/dL (6.4-8.2)
[2021-08-24] MEDS ORDERED: ONDANSETRON 4 MG/2 ML VIAL IV ONE (11:15)
[2021-08-24] MEDS ORDERED: levETIRAcetam IV 500 MG in IV DEXTROSE 5% 100 ML IV ONE (11:15)
[2021-08-24] MEDS ORDERED: PANTOPRAZOLE SODIUM 40 MG VIAL IV ONE (11:15)
[2021-08-24] MEDS ORDERED: IV NORMAL SALINE 1000 ML BAG IV ONE (11:15)
[2021-08-24] MEDS ORDERED: levETIRAcetam 500 MG/5 ML VIAL IV ONE (11:31)
[2021-08-24] MEDS ORDERED: PANTOPRAZOLE SODIUM 40 MG VIAL ONE (11:31)
[2021-08-24] MEDS ORDERED: ONDANSETRON 4 MG/2 ML VIAL ONE ×2 (11:31→18:36)
--- NOTE | 2021-08-24 14:30 | NUR ---
Adrian cerna in [facility] - 08/24/21 at 1517 by BENJI THE TRANSFER CREW FROM [facility].
--- NOTE | 2021-08-24 15:18 | NUR ---
Adrian cerna in [facility] - 08/24/21 at 1615 by BENJI TRANSFER BRITT TRANSFERED THE [facility].
[2021-08-24] MEDS ORDERED: MORPHINE SULFATE 2 MG/1 ML DISP.SYRIN IV ONE (18:00)
[2021-08-24] MEDS ORDERED: ONDANSETRON 4 MG/2 ML VIAL IV PRN (18:00)
[2021-08-24] MEDS ORDERED: MORPHINE SULFATE 2 MG/1 ML DISP.SYRIN ONE (18:36)
[2021-08-25] MEDS ORDERED: ONDANSETRON 4 MG/2 ML VIAL IV PRN (00:30)
[2021-08-25] MEDS ORDERED: MAGNESIUM HYDROXIDE 30 ML LIQUID UDC PO PRN (00:30)
[2021-08-25] MEDS ORDERED: ACETAMINOPHEN 325 MG TABLET PO PRN (00:30)
[2021-08-25] MEDS ORDERED: HYDROCODONE/APAP 10-325 MG TABLET PO PRN (00:30)
[2021-08-25] MEDS ORDERED: ZOLPIDEM 5 MG TABLET PO PRN (00:30)
[2021-08-25] MEDS: IV NS 1000 ML 1,000 ML IV PRN ×3 (00:49→22:58)
[2021-08-25] MEDS: MORPHINE SULFATE 2 MG/1 ML DISP.SYRIN IV PRN ×5 (00:50→22:58)
[2021-08-25] MEDS ORDERED: MORPHINE SULFATE 2 MG/1 ML DISP.SYRIN ONE ×2 (00:52→05:25)
[2021-08-25] MEDS: ENOXAPARIN SODIUM 40 MG/0.4 ML DISP.SYRIN SQ SCH ×2 (01:00→20:48)
[2021-08-25] MEDS ORDERED: ENOXAPARIN SODIUM 40 MG/0.4 ML DISP.SYRIN SQ ONE (01:08)
--- NOTE | 2021-08-25 06:26 | NUR ---
Pt admitted to [facility] in stable condition. Denies pain or SOB at this time. Satting 100% on room air. Pt able to make needs known. Able to ambulate with assistance. IV site intact running ordered fluids. Nursing swallow eval done at bedside with no evidence of aspiration. Will endorse to day shift.
[2021-08-25] MEDS: PANTOPRAZOLE SODIUM 40 MG TABLET.DR PO SCH (06:54)
[2021-08-25] MEDS ORDERED: hydrALAZINE HCL 20 MG/1 ML VIAL IV PRN (07:00)
[2021-08-25 09:00] VITALS: BP 170/94
[2021-08-25] MEDS ORDERED: levETIRAcetam IV 1,000 MG in IV DEXTROSE 5% 100 ML IV SCH (09:00)
[2021-08-25] MEDS ORDERED: METOPROLOL TARTRATE 25 MG TABLET PO SCH (09:30)
[2021-08-25] MEDS: NICOTINE 21 MG/24HR PATCH TD SCH (10:12)
[2021-08-25 10:55] LABS: HEMATOCRIT 24.4 % (31.2-41.9); MEAN CORPUSCULAR HEMOGLOBIN 26.3 uug (24.7-32.8); MEAN CORPUSCULAR VOLUME 78.7 fL (75.5-95.3); PLATELET COUNT (AUTO) 185 K/uL (179-408)
[2021-08-25 11:30] LABS: BILIRUBIN,TOTAL 1.1 mg/dL (0.2-1.0); CREATININE 0.9 mg/dL (0.6-1.3); MAGNESIUM 1.3 mg/dL (1.8-2.4); PHOSPHOROUS 1.8 mg/dL (2.5-4.9); POTASSIUM 3.9 mmol/L (3.5-5.1); TOTAL PROTEIN, SERUM 6.8 g/dL (6.4-8.2)
[2021-08-25 11:42] VITALS: BP 157/97
[2021-08-25] MEDS ORDERED: METOPROLOL TARTRATE 25 MG TABLET PO ONE (11:45)
--- NOTE | 2021-08-25 13:16 | NUR ---
Clinical Social Work Note DARLENE spoke with French [phone] with [facility] to arrange for patients admission the [facility] upon discharge. French stated that there is a waitlist and DARLENE would receive a call back today or tomorrow morning. DARLENE provided office phone number ([phone]) and Nursing station ([phone]) as call back numbers. [place] [id number]. Plan: DARLENE will follow up with [facility].
--- NOTE | 2021-08-25 16:20 | NUR ---
Clinical Social Work Note DARLENE spoke with Blanka from the Department of [facility], , and provided medical records. Blanka stated that once patient is ready for discharge, DARLENE will need to fax over clinicals and patient will need to be discharged with medical supplies for 14 days. Blanka stated that if patient is still in the hospital when her 5 days of isolation are completed she will not qualify for housing. DARLENE will leave a copy of homeless shelters in patient's chart. Plan: DARLENE will continue to follow up with [facility].
[2021-08-25 16:40] VITALS: BP 151/65
[2021-08-25] MEDS ORDERED: SODIUM PHOSPHATE MM 15 MMOL in IV NORMAL SALINE 250 ML IV ONE (17:00)
--- NOTE | 2021-08-25 17:13 | NUR ---
Pt is a/o x 4, homeless pt. SW left resources for pt due to [facility] stating they cannot guarantee if they have placement until the day of discharge and per SW the [facility] stated if it is past the 5 day isolation period, the pt will no longer be eligible for placement at [facility]. No seizure during shift, pt had elevated BP, administered prn medication. Pt complains of generalized pain and requests morphine prn Q4H. No temperature during shift, no productive cough or complaint of SOB. Comfort measures provided, call light within reach. education on Covid-19 provided to patient.
[2021-08-25 20:37] VITALS: BP 134/56
[2021-08-25] MEDS: levETIRAcetam 500 MG TABLET PO SCH (20:46)
[2021-08-25] MEDS: METOPROLOL TARTRATE 50 MG TABLET PO SCH (20:47)
[2021-08-26 04:41] VITALS: BP 182/85
[2021-08-26] MEDS: MORPHINE SULFATE 2 MG/1 ML DISP.SYRIN IV PRN ×5 (06:11→23:01)
[2021-08-26] MEDS: PANTOPRAZOLE SODIUM 40 MG TABLET.DR PO SCH (06:11)
--- NOTE | 2021-08-26 06:54 | NUR ---
Slept throughout the night. Denies SOB. IV site intact. Able to ambulate with assistance. No other issues or concerns at this time.
[2021-08-26 07:32] LABS: HEMATOCRIT 24.3 % (31.2-41.9); MEAN CORPUSCULAR HEMOGLOBIN 26.9 uug (24.7-32.8); MEAN CORPUSCULAR VOLUME 79.7 fL (75.5-95.3); PLATELET COUNT (AUTO) 165 K/uL (179-408)
[2021-08-26 07:47] LABS: CREATININE 0.8 mg/dL (0.6-1.3); PHOSPHOROUS 2.7 mg/dL (2.5-4.9); POTASSIUM 3.4 mmol/L (3.5-5.1)
[2021-08-26] MEDS: hydrALAZINE HCL 25 MG TABLET PO PRN ×2 (07:51→17:15)
[2021-08-26] MEDS ORDERED: POTASSIUM CHLORIDE 20 MEQ TAB.PRT.SR PO ONE (08:45)
[2021-08-26] MEDS: NICOTINE 21 MG/24HR PATCH TD SCH (08:50)
[2021-08-26] MEDS: levETIRAcetam 500 MG TABLET PO SCH (08:51)
[2021-08-26] MEDS: METOPROLOL TARTRATE 50 MG TABLET PO SCH ×2 (08:52→20:28)
--- NOTE | 2021-08-26 10:00 | NUR ---
POTASSIUM LEVEL IS 3.4 WITH ORDER TO REPLACE WITH 401 MEQ POTASSIUM [id number] IS AWAKE ALERT AND ORIENTED ON ROOM AIR WITH NO SHORTNESS OF BREATH AT THIS TIME REMAIN ON COVID ISOLATION AND PRECAUTION ORDERED IVF IN PROGRESS ORDERED CALL LIGHTS AND PERSONAL BELONGINGS ARE WITHIN EASY REACH MADE COMFORTABLE WILL CONTINUE TO OBSERVE.
[2021-08-26 11:52] VITALS: BP 147/80
[2021-08-26] MEDS: IV NS 1000 ML 1,000 ML IV PRN (12:43)
[2021-08-26 16:27] VITALS: BP 173/90
[2021-08-26] MEDS ORDERED: MAGNESIUM OXIDE 400 MG TABLET PO ONE (16:30)
--- NOTE | 2021-08-26 18:26 | NUR ---
MEDICATED WITH MORPHINE FOR C/O GENERALISED PAIN ORDERED AND HELPFUL MAG LEVEL IS 1.3 DR HINOJOSA NOTIFIED WITH ORDER FOR MAGNESSIUM REPLACEMENTS AND NOTED
[2021-08-26 19:57] VITALS: BP 146/65
[2021-08-26] MEDS: levETIRAcetam 250 MG TABLET PO SCH (20:28)
[2021-08-26] MEDS: ENOXAPARIN SODIUM 40 MG/0.4 ML DISP.SYRIN SQ SCH (20:34)
[2021-08-27] MEDS: IV NS 1000 ML 1,000 ML IV PRN ×2 (02:15→15:48)
[2021-08-27 04:00] VITALS: BP 166/84
[2021-08-27] MEDS: PANTOPRAZOLE SODIUM 40 MG TABLET.DR PO SCH (06:01)
[2021-08-27] MEDS: MORPHINE SULFATE 2 MG/1 ML DISP.SYRIN IV PRN ×4 (06:03→21:22)
[2021-08-27] MEDS: hydrALAZINE HCL 25 MG TABLET PO PRN (06:08)
--- NOTE | 2021-08-27 06:21 | NUR ---
Slept throughout the night. Denies SOB or chest pain. IV site intact. Pt able to make needs known. Ambulatory with assist. Will endorse to day shift.
--- NOTE | 2021-08-27 07:34 | NUR ---
PATIENT IS IN BED RESTING MORPHINE WAS GIVEN BY THE PREVIOUS RN AND ITS EFFECTIVE AT THIS TIME IVF IN PROGRESS WITH NO S/S OF INFILTERATION ON SITE AT THIS TIME REMAIN ON COVID ISOLATION AND PRECAUTION ON ROOM AIR AFEBRILE CALL LIGHT AND PERSONAL BELONGINGS ARE WITHIN EASY REACH MADE COMFORTABLE WILL CONTINUE TO OBSERVE.
[2021-08-27] MEDS: NICOTINE 21 MG/24HR PATCH TD SCH (08:38)
[2021-08-27] MEDS: levETIRAcetam 250 MG TABLET PO SCH ×2 (08:39→21:13)
[2021-08-27] MEDS: METOPROLOL TARTRATE 50 MG TABLET PO SCH ×2 (08:39→21:13)
[2021-08-27] MEDS: AMLODIPINE 5 MG TABLET PO SCH (10:56)
--- NOTE | 2021-08-27 10:57 | NUR ---
MORPHINE SULFATE 2MG SCANNED BUT DID NOT REALISE THAT THE SCAN DID NOT GO THROUGH SO I HAD TO DO MANUAL ENTRY TO DOCUMENT THAT I HAD INDEED GIVEN THIS DRUG TO THE PATIENT
[2021-08-27 13:41] VITALS: BP 161/87
[2021-08-27 16:00] VITALS: BP 139/71
[2021-08-27 20:03] VITALS: BP 162/88
--- NOTE | 2021-08-27 20:40 | NUR ---
PATIENT ALERT ORIENTED NO SOB NO CHEST PAIN, REMAINS ON DROPLET PRECAUTION, CONT ON PAIN MANAGEMENT, COMPLAIN OF GEN BODY PAIN, CONT TO MONITOR.
[2021-08-27] MEDS: ENOXAPARIN SODIUM 40 MG/0.4 ML DISP.SYRIN SQ SCH (21:30)
[2021-08-28 04:09] VITALS: BP 151/64
[2021-08-28] MEDS: PANTOPRAZOLE SODIUM 40 MG TABLET.DR PO SCH (05:40)
--- NOTE | 2021-08-28 06:30 | NUR ---
PATIENT SLEPT MOST OF THE NIGHT, CONT ON PAIN MANAGEMENT. PATIENT REMAINS ON DROPLET PRECAUTIONS, NO FEVER NO COUGH, CONT TO MONITOR.
[2021-08-28 06:56] LABS: HEMATOCRIT 26.2 % (31.2-41.9); MEAN CORPUSCULAR HEMOGLOBIN 26.4 uug (24.7-32.8); MEAN CORPUSCULAR VOLUME 79.3 fL (75.5-95.3); PLATELET COUNT (AUTO) 193 K/uL (179-408)
[2021-08-28 08:03] LABS: BILIRUBIN,TOTAL 0.5 mg/dL (0.2-1.0); CREATININE 0.6 mg/dL (0.6-1.3); PHOSPHOROUS 3.8 mg/dL (2.5-4.9); POTASSIUM 3.3 mmol/L (3.5-5.1)
[2021-08-28] MEDS ORDERED: levETIRAcetam 500 MG TABLET PO SCH (09:00)
[2021-08-28] MEDS: NICOTINE 21 MG/24HR PATCH TD SCH (09:42)
[2021-08-28] MEDS: METOPROLOL TARTRATE 50 MG TABLET PO SCH (09:44)
[2021-08-28] MEDS: AMLODIPINE 5 MG TABLET PO SCH (09:45)
[2021-08-28] MEDS: MAGNESIUM SULFATE/D5W 100 ML IV SCH ×2 (09:49→11:32)
[2021-08-28] MEDS: MORPHINE SULFATE 2 MG/1 ML DISP.SYRIN IV PRN ×2 (10:00→14:31)
[2021-08-28] MEDS ORDERED: POTASSIUM CHLORIDE 20 MEQ TAB.PRT.SR PO ONE (10:00)
[2021-08-28 12:00] VITALS: BP 135/57
[2021-08-28] MEDS ORDERED: MULT-1045 PO (13:29)
[2021-08-28] MEDS ORDERED: ZOLP5TAB2 PO (13:29)
[2021-08-28] MEDS ORDERED: ACET325T53 PO (13:29)
[2021-08-28] MEDS ORDERED: ENOX40DI SQ (13:29)
[2021-08-28] MEDS ORDERED: PANT40TA49 PO (13:29)
[2021-08-28] MEDS ORDERED: HYDR-3980 PO (13:29)
[2021-08-28] MEDS ORDERED: METO50TA16 PO (13:29)
[2021-08-28] MEDS ORDERED: MAGN400O6 PO (13:29)
[2021-08-28] MEDS ORDERED: MAGN400T30 PO (13:29)
[2021-08-28] MEDS ORDERED: LEVE500T9 PO (13:29)
[2021-08-28] MEDS ORDERED: AMLO-212 PO (13:29)
[2021-08-28] MEDS ORDERED: NICO-780 TD (13:29)
--- NOTE | 2021-08-28 13:31 | NUR ---
Clinical Social Work Note SW meet with patient in order to discuss chcf placement. Patient presents alert and oriented x4. Patient presents with a withdrawn mood and flat effect. SW informed patient that she will be providing patient with a homeless packet. Patient stated that she did not want a chcf due to not being able to ambulate. Patient refused chcf placement and stated that she wanted SNF placement. SW informed patient that she will work with family independence case manager to work on SNF placement. DARLENE spoke with Maxine Ward, Analysis Consultant, and informed her about patient's request for SNF placement. Maxine stated that she has been working on placement and patient has been accepted at [facility],[address] [place] [id number] . Maxine informed SW that patient will be transported to [facility] at 3:30 PM.
[2021-08-28 15:30] VITALS: BP 128/94
--- NOTE | 2021-08-28 15:46 | NUR ---
Patient remained stable. report given to SANDI Morrissey at [facility]. No distress identified. No SOB noted.
--- NOTE | 2021-08-28 15:50 | NUR ---
discharged patient with vs stable, wnl. no distress identified. left via ambulance with 2 community engagement specialist. Rx given and dc instructions given and signed. no concerns identified. belonging list signed.
[2021-08-28] MEDS ORDERED: MAGNESIUM OXIDE 400 MG TABLET PO SCH (21:00)
== END 2021-08-28 15:50 | DRG 178 ==
LOC: ER 08:55 → TRANSITION 17:26 → TELE3 08-25 05:51 → MEDSURG3 08-25 06:20
PROVIDERS: ADMIT Internal Medicine; ATTEND Internal Medicine
PROC: 05H633Z Insertion of Infusion Device into Left Subclavian Vein, Percutaneous Approach (ICD-10-PCS; principal; 2021-08-24)
PROC: B547ZZA Ultrasonography of Left Subclavian Vein, Guidance (ICD-10-PCS; 2021-08-24)
DX: U07.1 COVID-19 (principal); E87.2 Acidosis; G40.909 Epilepsy, unspecified, not intractable, without status epilepticus; D57.3 Sickle-cell trait; E78.5 Hyperlipidemia, unspecified; Z59.00 Homelessness unspecified; Z87.891 Personal history of nicotine dependence; Z86.73 Personal history of transient ischemic attack (TIA), and cerebral infarction without residual deficits; I10 Essential (primary) hypertension; I25.10 Atherosclerotic heart disease of native coronary artery without angina pectoris; Z86.19 Personal history of other infectious and parasitic diseases; K52.9 Noninfective gastroenteritis and colitis, unspecified; K21.9 Gastro-esophageal reflux disease without esophagitis; K29.00 Acute gastritis without bleeding; Z91.19 Patient's noncompliance with other medical treatment and regimen; D64.9 Anemia, unspecified; F29 Unspecified psychosis not due to a substance or known physiological condition; E83.42 Hypomagnesemia
CPT/HCPCS: 36415; 70030-TC; 70450; 71045; 83605; 83615; 83690; 83735; 84100; 85025; 85730; 86140; 87040; 93005; A4663; C9113; G0378; J1650; J1953; J2270; J2405; J3475; J3490; J7030; J7050; J7060; U0003

== ENCOUNTER 2021-09-11 21:09 | Emergency (ER) | payer MEDICARE, OTHER ==
[~2021-09-11] VITALS: Ht 167.6 cm; Wt 63.5 kg
[~2021-09-11 21:09] MED LIST changes: +ACET325T53 PO; +AMLO-212 PO; -BENZ-13 PO; +ENOX40DI SQ; +HYDR-3980 PO; -LEVE250T2 PO; +MAGN400O6 PO; +MAGN400T30 PO; +METO50TA16 PO; +MULT-1045 PO; +NICO-780 TD; +PANT40TA49 PO; +ZOLP5TAB2 PO
--- NOTE | 2021-09-11 21:21 | NUR ---
PATIENT BIB [facility] [address] IN FRONT OF Jade Magnet[facility] FOR C/O SOB UPON EXERTION AND UNABLE TO CONTROL BM.
--- NOTE | 2021-09-11 21:50 | NUR ---
Dr. Escudero on bedside for MSE.
[2021-09-11] MEDS ORDERED: levETIRAcetam IV 500 MG in IV DEXTROSE 5% 100 ML IV ONE (22:00)
[2021-09-11] MEDS ORDERED: levETIRAcetam 500 MG/5 ML VIAL IV ONE (22:18)
[2021-09-11] MEDS ORDERED: LEVE500T9 PO (22:54)
[2021-09-11] MEDS ORDERED: GABAPENTIN 300 MG CAPSULE PO ONE (23:15)
[2021-09-12] MEDS ORDERED: ONDANSETRON ODT 4 MG TAB.RAPDIS SL ONE (00:15)
[2021-09-12] MEDS ORDERED: HYDROCODONE/APAP 10-325 MG TABLET PO ONE (00:15)
[2021-09-12] MEDS ORDERED: HYDROCODONE/APAP 10-325 MG TABLET ONE (00:26)
[2021-09-12] MEDS ORDERED: ONDANSETRON ODT 4 MG TAB.RAPDIS ONE (00:26)
--- NOTE | 2021-09-12 00:28 | NUR ---
Patient discharged to home in stable condition. Patient denies being homeless. Written and verbal after care instructions given. Patient verbalizes understanding of instructions. Stressed follow up or return to ER for worsening s/s. Patient discharge from ER on her wheelchair. All belongings with patient.
[2021-09-12 00:30] VITALS: BP 150/78
== END 2021-09-12 00:30 | disposition home or self-care (01) ==
LOC: ER 21:11
DX: G40.909 Epilepsy, unspecified, not intractable, without status epilepticus (principal); Z76.0 Encounter for issue of repeat prescription; Z59.02 Unsheltered homelessness; R06.02 Shortness of breath; Z20.822 Contact with and (suspected) exposure to COVID-19; F17.210 Nicotine dependence, cigarettes, uncomplicated; Z91.018 Allergy to other foods; E11.42 Type 2 diabetes mellitus with diabetic polyneuropathy; Z86.73 Personal history of transient ischemic attack (TIA), and cerebral infarction without residual deficits; I25.10 Atherosclerotic heart disease of native coronary artery without angina pectoris; Z82.49 Family history of ischemic heart disease and other diseases of the circulatory system; D57.3 Sickle-cell trait; R03.0 Elevated blood-pressure reading, without diagnosis of hypertension; Z79.899 Other long term (current) drug therapy; E11.40 Type 2 diabetes mellitus with diabetic neuropathy, unspecified
CPT/HCPCS: 71045; 87426; 93005; 96374; 99285; 99406; J1953; J7060; J7030; Q0162

== ENCOUNTER 2021-09-28 12:37 | Inpatient (IN) | payer MEDICARE, OTHER ==
[~2021-09-28] VITALS: Ht 167.6 cm; Wt 61.2 kg
[2021-09-28] MEDS ORDERED: CYAN100T44 PO (13:07)
--- NOTE | 2021-09-28 13:08 | NUR ---
PT STATES SHE IS ONLY TAKING 2 MEDS CURRENTLY - KEPPRA AND VIT B12 OTC.
[2021-09-28 14:06] LABS: HEMATOCRIT 23.1 % (31.2-41.9); MEAN CORPUSCULAR HEMOGLOBIN 26.9 uug (24.7-32.8); PLATELET COUNT (AUTO) 310 K/uL (179-408)
[2021-09-28 14:33] LABS: BILIRUBIN,TOTAL 0.7 mg/dL (0.2-1.0); POTASSIUM 3.7 mmol/L (3.5-5.1); TOTAL PROTEIN, SERUM 7.3 g/dL (6.4-8.2)
[2021-09-28 14:45] LABS: BILIRUBIN,DIRECT 0.2 mg/dL (0.0-0.2)
[2021-09-28] MEDS ORDERED: CEFTRIAXONE 1 G in IV DEXTROSE 5% 50 ML IV ONE (15:30)
[2021-09-28] MEDS ORDERED: HYDROCODONE/APAP 5-325MG TABLET PO ONE (15:30)
[2021-09-28] MEDS ORDERED: VANCOMYCIN IV 1,000 MG in IV DEXTROSE 5% 250 ML IV ONE (15:30)
[2021-09-28] MEDS ORDERED: HYDROCODONE/APAP 5-325MG TABLET ONE (15:34)
[2021-09-28] MEDS ORDERED: VANCOMYCIN IV 200 ML ONE (15:59)
[2021-09-28] MEDS ORDERED: CEFTRIAXONE /D5W 50ML IVPB **ER PYXIS IV ONE (15:59)
[2021-09-28] MEDS ORDERED: ACETAMINOPHEN 325 MG TABLET PO PRN (16:00)
[2021-09-28] MEDS ORDERED: ONDANSETRON 4 MG/2 ML VIAL IV PRN (16:00)
[2021-09-28] MEDS ORDERED: REMEDY ESSENTIAL ZINC PASTE 113 GM TP PRN (16:00)
[2021-09-28] MEDS ORDERED: MAGNESIUM HYDROXIDE 30 ML LIQUID UDC PO PRN (16:00)
--- NOTE | 2021-09-28 19:00 | NUR ---
Patient arrived in the floor from ER via gurney. Awake, alert and no apparent distress noted. Able to assist transfer from gurney to bed with slight mobility restriction on both LE due to cellulitis/pain. Able to repositioned /turned self for comfort. Routine admission care done. Placed on monitored bed. Plan of care initiated.
[2021-09-28 19:15] VITALS: BP 146/53
[2021-09-28 20:00] VITALS: BP 149/70
[2021-09-28] MEDS: levETIRAcetam 500 MG TABLET PO SCH (20:34)
[2021-09-28] MEDS: PIPERACILLIN SODIUM/TAZOBACTAM 3.375 G in IV DEXTROSE 5% 50 ML IV SCH (23:35)
[2021-09-29] VITALS: BP 147/79
[2021-09-29 04:00] VITALS: BP 149/82
[2021-09-29] MEDS: PIPERACILLIN SODIUM/TAZOBACTAM 3.375 G in IV DEXTROSE 5% 50 ML IV SCH ×4 (05:28→23:42)
[2021-09-29] MEDS: VANCOMYCIN IV 1,000 MG in IV DEXTROSE 5% 250 ML IV SCH ×2 (06:03→20:19)
[2021-09-29 06:40] LABS: HEMATOCRIT 23.4 % (31.2-41.9); MEAN CORPUSCULAR HEMOGLOBIN 27.1 uug (24.7-32.8); MEAN CORPUSCULAR VOLUME 79.5 fL (75.5-95.3); PLATELET COUNT (AUTO) 275 K/uL (179-408)
[2021-09-29 07:06] LABS: CREATININE 0.8 mg/dL (0.6-1.3); PHOSPHOROUS 3.6 mg/dL (2.5-4.9); POTASSIUM 3.1 mmol/L (3.5-5.1)
[2021-09-29] MEDS: CYANOCOBALAMIN 100 MCG TABLET PO SCH (08:38)
[2021-09-29] MEDS: levETIRAcetam 500 MG TABLET PO SCH ×2 (08:38→20:18)
[2021-09-29 08:52] LABS: MAGNESIUM 1.1 mg/dL (1.8-2.4)
[2021-09-29] MEDS: MAGNESIUM SULFATE/D5W 100 ML IV SCH ×4 (09:59→12:56)
[2021-09-29] MEDS ORDERED: POTASSIUM CHLORIDE 20 MEQ TAB.PRT.SR PO ONE (10:00)
[2021-09-29 11:05] VITALS: BP 131/78
[2021-09-29 11:06] VITALS: BP 109/45
--- NOTE | 2021-09-29 14:38 | NUR ---
Clinical Social Work Note SW consult was requested for homeless. DARLENE met with 66 year old female who is alert and oriented x4. Patient presents with a withdrawn mood and flat effect. DARLENE informed patient that she will be providing patient with a homeless packet. Patient stated that she did not want a [facility]cfp due to the risk of COVID. Patient refused mcfp placement and stated that she wanted SNF placement. DARLENE informed patient that she will work with ed case manager to work on SNF placement. DARLENE informed Vanna STRANGE, and informed her about patient's request for SNF placement. Vanna stated that she would work on SNF placement.
[2021-09-29 15:09] VITALS: BP 106/48
--- NOTE | 2021-09-29 18:43 | NUR ---
patient with complaint of pain, requesting for pain medication, new order for norco 5-325mg noted and carried out.
--- NOTE | 2021-09-29 19:25 | NUR ---
Received pt resting in bed. AO x 4. On room air saturating at 99%. Patient complaining of leg pain, awaiting for medication verification. No other complaints. No signs of acute distress. Call lights within reach. Safety measures initiated.
[2021-09-29 20:04] VITALS: BP 118/70
[2021-09-29] MEDS: HYDROCODONE/APAP 5-325MG TABLET PO PRN (20:19)
[2021-09-29] MEDS ORDERED: MORPHINE SULFATE 2 MG/1 ML DISP.SYRIN IVP ONE ×2 (22:30)
[2021-09-30 04:00] VITALS: BP 150/79
[2021-09-30] MEDS: HYDROCODONE/APAP 5-325MG TABLET PO PRN (04:39)
--- NOTE | 2021-09-30 05:01 | NUR ---
Lowber 5-325 mg PO given for pain. Not effective. Pt continued to c/o pain. Morphine IVP given one time for leg pain. Slept well after pain medication, easily arousable. ABX given, tolerated. On room air saturating at 99%. Able to make needs known. IV in R FA intact and patent. No signs of acute distress. Call lights within reach. Safety measures maintained.
[2021-09-30] MEDS: PIPERACILLIN SODIUM/TAZOBACTAM 3.375 G in IV DEXTROSE 5% 50 ML IV SCH ×3 (05:10→21:07)
[2021-09-30 06:23] LABS: CREATININE 1.1 mg/dL (0.6-1.3); POTASSIUM 3.4 mmol/L (3.5-5.1)
[2021-09-30 06:43] LABS: HEMATOCRIT 22.6 % (31.2-41.9); MEAN CORPUSCULAR HEMOGLOBIN 26.6 uug (24.7-32.8); MEAN CORPUSCULAR VOLUME 79.9 fL (75.5-95.3); PLATELET COUNT (AUTO) 258 K/uL (179-408)
--- NOTE | 2021-09-30 07:20 | NUR ---
Received resting in bed. AOx3-4. On room air. No signs of acute distress. Patient denied pain/ discomfort. IV access patent and intact. Bed alarm on for safety. Call light within reach. Will continue to monitor.
[2021-09-30] MEDS: CYANOCOBALAMIN 100 MCG TABLET PO SCH (08:18)
[2021-09-30] MEDS: levETIRAcetam 500 MG TABLET PO SCH ×2 (08:18→21:00)
[2021-09-30] MEDS: VANCOMYCIN IV 1,000 MG in IV DEXTROSE 5% 250 ML IV SCH ×2 (09:24→23:56)
[2021-09-30 12:00] VITALS: BP 133/68
[2021-09-30] MEDS ORDERED: POTASSIUM CHLORIDE 20 MEQ TAB.PRT.SR PO ONE (13:30)
[2021-09-30 16:00] VITALS: BP 144/77
--- NOTE | 2021-09-30 19:23 | NUR ---
Patient resting in bed. AOx3-4. On room air. No signs of acute distress. IV access patent and intact. Patient compliant with medications and care. Needs anticipated and met. Bed alarm on. Call light within reach. Will endorse to incoming shift for continuity of care.
--- NOTE | 2021-09-30 19:45 | NUR ---
Received pt resting in bed. AO x 3/4. On room air saturating at 96%. Pt requesting Morphine IVP, states "Nauvoo gives me diarrhea and upsets my stomach". Informed pt that there is N[place]voo PO for her pain, but continues to refuse N[place] and wants Morphine IVP only. MD notified. No signs of acute distress noted. IV in R FA intact and patent. Call lights within reach. Safety measures initiated.
[2021-09-30 20:12] VITALS: BP 144/78
--- NOTE | 2021-09-30 20:57 | NUR ---
MD ordered, Morphine 0.5 mg IVP one time only.
[2021-09-30] MEDS ORDERED: MORPHINE SULFATE 2 MG/1 ML DISP.SYRIN IVP ONE (21:00)
[2021-10-01 04:17] VITALS: BP 153/70
[2021-10-01] MEDS: PIPERACILLIN SODIUM/TAZOBACTAM 3.375 G in IV DEXTROSE 5% 50 ML IV SCH ×4 (05:03→23:34)
--- NOTE | 2021-10-01 05:25 | NUR ---
On room air saturating at 99%. Morphine 0.5 mg IVP given for leg pain. Pt did not complain of pain after, slept throughout the night. Zosyn and Vancomycin ABX given and tolerated. IV in R FA intact and patent. No signs of acute distress. Call lights within reach. Safety measures maintained.
[2021-10-01 06:34] LABS: HEMATOCRIT 24.4 % (31.2-41.9); MEAN CORPUSCULAR HEMOGLOBIN 26.9 uug (24.7-32.8); MEAN CORPUSCULAR VOLUME 80.8 fL (75.5-95.3); PLATELET COUNT (AUTO) 233 K/uL (179-408)
[2021-10-01 06:35] LABS: CREATININE 0.8 mg/dL (0.6-1.3); POTASSIUM 3.3 mmol/L (3.5-5.1)
[2021-10-01] MEDS: CYANOCOBALAMIN 100 MCG TABLET PO SCH (08:54)
[2021-10-01] MEDS: levETIRAcetam 500 MG TABLET PO SCH ×2 (08:57→22:23)
[2021-10-01] MEDS ORDERED: POTASSIUM CHLORIDE 20 MEQ TAB.PRT.SR PO ONE (09:30)
[2021-10-01 11:19] VITALS: BP 124/75
[2021-10-01] MEDS: VANCOMYCIN IV 1,000 MG in IV DEXTROSE 5% 250 ML IV SCH (13:57)
[2021-10-01 15:50] VITALS: BP 140/72
[2021-10-01 20:12] VITALS: BP 152/62
[2021-10-02] MEDS: VANCOMYCIN IV 1,000 MG in IV DEXTROSE 5% 250 ML IV SCH ×2 (03:12→17:49)
[2021-10-02 04:50] VITALS: BP 176/88
[2021-10-02] MEDS: PIPERACILLIN SODIUM/TAZOBACTAM 3.375 G in IV DEXTROSE 5% 50 ML IV SCH ×4 (05:09→23:28)
--- NOTE | 2021-10-02 05:26 | NUR ---
Pt requested Morphine IVP for pain once, informed pt there is no order for Morphine only NORCO. Pt did not want Lee. No pain medication given. Pt was able to sleep through the night comfortably. No signs of acute distress. Call lights within reach. Safety measures maintained. Will endorse to am shift.
[2021-10-02 06:26] LABS: HEMATOCRIT 24.2 % (31.2-41.9); MEAN CORPUSCULAR HEMOGLOBIN 26.8 uug (24.7-32.8); MEAN CORPUSCULAR VOLUME 80.6 fL (75.5-95.3); PLATELET COUNT (AUTO) 229 K/uL (179-408)
[2021-10-02] MEDS ORDERED: CLONIDINE HCL 0.1 MG TABLET PO PRN (06:30)
[2021-10-02 06:32] LABS: CREATININE 0.8 mg/dL (0.6-1.3); POTASSIUM 3.5 mmol/L (3.5-5.1)
--- NOTE | 2021-10-02 06:45 | NUR ---
Pt bp elevated 176/88. Per MD order, Clonidine 0.1 mg PO PRN SBP >160. Non compliant with rechecking BP and care. Will reassess. No signs of acute distress. Will endorse to am shift.
[2021-10-02] MEDS: CYANOCOBALAMIN 100 MCG TABLET PO SCH (08:43)
[2021-10-02] MEDS: levETIRAcetam 500 MG TABLET PO SCH ×3 (08:43→20:25)
[2021-10-02 10:33] VITALS: BP 138/66
--- NOTE | 2021-10-02 10:40 | NUR ---
patient yelling at nurse, demanding to speak to doctor, attempted to redirect with no positive effect. patient demanding to be transferred to [place], ALEXANDR spoke with patient and informed her there is no available beds, patient continues to scream stating i dont want to go to that new place you are offering, get me the MD now, and get me a fruit platter.
[2021-10-02 11:59] VITALS: BP 146/54
[2021-10-02 16:10] VITALS: BP 135/68
--- NOTE | 2021-10-02 19:55 | NUR ---
Received patient lying in bed. AAOX4. Patient reported pain and specifically requested for morphine however shows no signs and symptoms of pain. Advised patient to resort to non-pharmacological methods instead, patient refused. IV access patent and intact, running antibiotics. Safety precautions initiated. Will continue to monitor.
[2021-10-02 20:00] VITALS: BP 153/68
[2021-10-02] MEDS: HYDROCODONE/APAP 5-325MG TABLET PO PRN (20:23)
--- NOTE | 2021-10-02 20:55 | NUR ---
Patient refused to take levetiracetam despite patient education. Patient started yelling and asked not to be bothered for the rest of the night.
[2021-10-03 04:00] VITALS: BP 140/62
[2021-10-03] MEDS: PIPERACILLIN SODIUM/TAZOBACTAM 3.375 G in IV DEXTROSE 5% 50 ML IV SCH ×3 (05:29→18:00)
--- NOTE | 2021-10-03 05:42 | NUR ---
Patient slept through the night with no complaints, patient asked not to be bothered. IV antibiotics given as ordered. All needs attended to and met. Safety precautions maintained. Will endorse to day shift.
[2021-10-03 06:27] LABS: HEMATOCRIT 24.1 % (31.2-41.9); MEAN CORPUSCULAR HEMOGLOBIN 26.8 uug (24.7-32.8); MEAN CORPUSCULAR VOLUME 80.2 fL (75.5-95.3); PLATELET COUNT (AUTO) 237 K/uL (179-408)
[2021-10-03 06:40] LABS: CREATININE 0.8 mg/dL (0.6-1.3); POTASSIUM 3.3 mmol/L (3.5-5.1)
[2021-10-03] MEDS: VANCOMYCIN IV 1,000 MG in IV DEXTROSE 5% 250 ML IV SCH (08:13)
[2021-10-03] MEDS: levETIRAcetam 500 MG TABLET PO SCH (08:14)
[2021-10-03] MEDS: CYANOCOBALAMIN 100 MCG TABLET PO SCH (08:14)
[2021-10-03] MEDS ORDERED: POTASSIUM CHLORIDE 20 MEQ TAB.PRT.SR PO ONE (09:30)
[2021-10-03] MEDS: HYDROCODONE/APAP 5-325MG TABLET PO PRN (11:46)
[2021-10-03 12:02] VITALS: BP 144/69
[2021-10-03] MEDS ORDERED: ACET325T53 PO (15:42)
[2021-10-03] MEDS ORDERED: CLON0.1T PO (15:42)
[2021-10-03] MEDS ORDERED: MULT-1045 PO (15:42)
[2021-10-03] MEDS ORDERED: PIPE3.379 IV (15:42)
[2021-10-03] MEDS ORDERED: ACID1TAB4 PO (15:42)
[2021-10-03] MEDS ORDERED: MENT113O TP (15:42)
[2021-10-03] MEDS ORDERED: HYDR-3972 PO (15:42)
[2021-10-03] MEDS ORDERED: MAGN400O6 PO (15:42)
[2021-10-03] MEDS ORDERED: RXVAN XX (15:42)
[2021-10-03] MEDS ORDERED: FERR325T28 PO (15:44)
[2021-10-03 16:00] VITALS: BP 136/62
[2021-10-03 17:26] VITALS: BP 153/71
--- NOTE | 2021-10-03 17:35 | NUR ---
Patient BP 172/77. Per [facility] policy, will not transfer patient with elevated blood pressure. talent management manager notified. Catapres given. Patient to be placed on will call for next available pear picker time.
--- NOTE | 2021-10-03 17:40 | NUR ---
Patient no longer has access point. Spoke to RN at [facility] that they would be able to begin IV line to administer patient's IV antibiotics. Zosyn not given due to patient no longer having access point and anticipated discharge. Attempted to start IV line, patient refused and became agitated.
--- NOTE | 2021-10-03 18:53 | NUR ---
Patient's latest blood pressure: 152/66. Will endorse information to PM nurse
--- NOTE | 2021-10-03 19:19 | NUR ---
Patient discharged from unit at 190
== END 2021-10-03 17:09 | DRG 603 ==
LOC: ER 12:37 → TELE3 18:48 → MEDSURG3 09-29 10:35
PROVIDERS: ADMIT Family Medicine; ATTEND Internal Medicine
DX: L03.116 Cellulitis of left lower limb (principal); D68.59 Other primary thrombophilia; L03.115 Cellulitis of right lower limb; D50.9 Iron deficiency anemia, unspecified; E78.5 Hyperlipidemia, unspecified; E83.42 Hypomagnesemia; F17.210 Nicotine dependence, cigarettes, uncomplicated; E87.6 Hypokalemia; G40.909 Epilepsy, unspecified, not intractable, without status epilepticus; G62.9 Polyneuropathy, unspecified; I10 Essential (primary) hypertension; I25.10 Atherosclerotic heart disease of native coronary artery without angina pectoris; K21.9 Gastro-esophageal reflux disease without esophagitis; Z59.00 Homelessness unspecified; Z86.16 Personal history of COVID-19; Z86.73 Personal history of transient ischemic attack (TIA), and cerebral infarction without residual deficits; G89.29 Other chronic pain; Z79.899 Other long term (current) drug therapy; D63.8 Anemia in other chronic diseases classified elsewhere; Z20.822 Contact with and (suspected) exposure to COVID-19; K29.70 Gastritis, unspecified, without bleeding; Z86.19 Personal history of other infectious and parasitic diseases; Z74.09 Other reduced mobility; I73.9 Peripheral vascular disease, unspecified; D57.3 Sickle-cell trait; Z91.14 Patient's other noncompliance with medication regimen
CPT/HCPCS: 36415; 70030-TC; 71045; 83735; 84100; 85025; 85730; 93005; 93307; 97161; A4663; G0378; J0696; J2270; J2543; J3370; J3475; J3490; J7040; J7050; J7060

== ENCOUNTER 2022-12-24 17:23 | Emergency (ER) | payer OTHER ==
[~2022-12-24] VITALS: Ht 167.6 cm; Wt 57.2 kg
[~2022-12-24 17:23] MED LIST changes: -ACET325T53 PO; -AMLO-212 PO; -ENOX40DI SQ; +FERR325T23 PO; +GABA-532 PO; -HYDR-3980 PO; -MAGN400O6 PO; -MAGN400T30 PO; -METO50TA16 PO; -MULT-1045 PO; -NICO-780 TD; -PANT40TA49 PO; -ZOLP5TAB2 PO
[2022-12-24] MEDS ORDERED: levETIRAcetam 500 MG TABLET PO STA (18:04)
[2022-12-24] MEDS ORDERED: ONDANSETRON ODT 4 MG TAB.RAPDIS SL ONE (18:15)
[2022-12-24] MEDS ORDERED: levETIRAcetam 250 MG TABLET ONE (18:19)
[2022-12-24] MEDS ORDERED: ONDANSETRON ODT 4 MG TAB.RAPDIS ONE (18:20)
[2022-12-24] MEDS ORDERED: LEVE500T9 PO (19:33)
[2022-12-24] MEDS ORDERED: ONDA4TAB5 PO (19:33)
[2022-12-24 20:08] VITALS: BP 135/78
== END 2022-12-24 20:09 | disposition home or self-care (01) ==
LOC: ER 17:25
DX: R53.83 Other fatigue (principal); R53.1 Weakness; E11.649 Type 2 diabetes mellitus with hypoglycemia without coma; I10 Essential (primary) hypertension; I25.10 Atherosclerotic heart disease of native coronary artery without angina pectoris; F17.210 Nicotine dependence, cigarettes, uncomplicated; Z86.61 Personal history of infections of the central nervous system; Z86.2 Personal history of diseases of the blood and blood-forming organs and certain disorders involving the immune mechanism; Z91.018 Allergy to other foods; Z79.899 Other long term (current) drug therapy
CPT/HCPCS: A4663; Q0162

== ENCOUNTER 2023-02-23 03:13 | Inpatient (IN) | payer OTHER ==
[~2023-02-23] VITALS: Ht 167.6 cm; Wt 57.2 kg
[~2023-02-23 03:13] MED LIST changes: +ONDA4TAB5 PO
[2023-02-23] MEDS ORDERED: HYDROMORPHONE 1 MG/1 ML DISP.SYRIN IV ONE (04:00)
[2023-02-23] MEDS ORDERED: IV NORMAL SALINE 1000 ML BAG IV ONE (04:00)
[2023-02-23] MEDS ORDERED: PROCHLORPERAZINE EDISYLATE 10 MG/2 ML VIAL IV ONE (04:00)
[2023-02-23] MEDS ORDERED: HYDROMORPHONE 1 MG/1 ML DISP.SYRIN ONE (04:08)
[2023-02-23] MEDS ORDERED: PROCHLORPERAZINE EDISYLATE 10 MG/2 ML VIAL ONE (04:08)
[2023-02-23 04:27] LABS: MEAN CORPUSCULAR HEMOGLOBIN 29.4 uug (24.7-32.8); MEAN CORPUSCULAR VOLUME 90.3 fL (75.5-95.3); PLATELET COUNT (AUTO) 221 K/uL (179-408)
[2023-02-23 04:47] LABS: CARBON DIOXIDE 11 mmol/L (21-32); CHLORIDE 98 mmol/L (98-107); CREATININE 1.6 mg/dL (0.6-1.3); POTASSIUM 4.3 mmol/L (3.5-5.1); UREA NITROGEN, BLOOD 29 mg/dL (7-18)
[2023-02-23 05:00] LABS: ALANINE AMINOTRANSFERASE 23 U/L (14-59); ALKALINE PHOSPHATASE 108 U/L (50-136); ASPARTATE AMINOTRANSFERASE 54 U/L (15-37); BILIRUBIN,DIRECT 0.2 mg/dL (0.0-0.2); BILIRUBIN,TOTAL 0.5 mg/dL (0.2-1.0); TOTAL PROTEIN, SERUM 8.5 g/dL (6.4-8.2)
[2023-02-23] MEDS ORDERED: MAGNESIUM SULFATE/D5W 200 ML ONE (05:21)
[2023-02-23] MEDS ORDERED: CLINDAMYCIN PHOSPHATE IV 600 MG in IV DEXTROSE 5% 100 ML IV ONE (05:30)
[2023-02-23] MEDS: MAGNESIUM SULFATE/D5W 100 ML IV SCH ×2 (05:56→06:15)
[2023-02-23] MEDS ORDERED: LEVE250T2 PO (06:02)
[2023-02-23] MEDS ORDERED: CHOLECALCIFEROL 1,000 UNIT TABLET ONE (06:11)
[2023-02-23] MEDS ORDERED: CLINDAMYCIN 600 MG PIGGYBACK**ER OMNI IV ONE (06:11)
[2023-02-23] MEDS ORDERED: ONDANSETRON 4 MG/2 ML VIAL IV PRN (06:45)
[2023-02-23] MEDS ORDERED: MAGNESIUM HYDROXIDE 30 ML LIQUID UDC PO PRN (06:45)
[2023-02-23] MEDS ORDERED: REMEDY ESSENTIAL ZINC PASTE 113 GM TP PRN (06:45)
[2023-02-23] MEDS ORDERED: ACETAMINOPHEN 325 MG TABLET PO PRN (06:45)
[2023-02-23] MEDS: CHOLECALCIFEROL 1,000 UNIT TABLET PO SCH (06:50)
[2023-02-23] MEDS ORDERED: levETIRAcetam IV 1,000 MG in IV DEXTROSE 5% 100 ML IV SCH (07:00)
--- NOTE | 2023-02-23 07:12 | NUR ---
[facility] patient placement called, spoke to [facility]. Patient was placed at [facility] [address] room #[id number]. Was given number for report . Was told to call back patient placement at with ETA of ambulance arrival.
[2023-02-23] MEDS ORDERED: levETIRAcetam 500 MG/5 ML VIAL IV ONE (08:11)
[2023-02-23 08:48] LABS: *CLARITY,URINE CLEAR (CLEAR); *COLOR,URINE YELLOW (YELLOW); *KETONES,URINE 3+ (NEGATIVE); *UROBILINOGEN,URINE 0.2 E.U./dl (NORMAL); LEUKOCYTE ESTERASE ,URINE 1+ (NEGATIVE); NITRITE, URINE NEGATIVE (NEGATIVE); PH,URINE 5.5 (5.0-8.0); UGLUCOSE NEGATIVE (NEGATIVE)
[2023-02-23 08:49] LABS: *BLOOD, URINE TRACE (NEGATIVE)
[2023-02-23 08:50] LABS: *BILIRUBIN,URIN 1+ (NEGATIVE)
[2023-02-23 09:01] LABS: BACTERIA,URINE MODERATE /HPF (NONE SEEN); SQUAMOUS EPITHELIAL CELL,UR MANY /HPF (NONE SEEN)
--- NOTE | 2023-02-23 09:09 | NUR ---
Called nursing supervisor electronics assembly for tele bed.
--- NOTE | 2023-02-23 09:10 | NUR ---
pt. asleep at this time, ua collected and sent to lab
--- NOTE | 2023-02-23 10:09 | NUR ---
ER REPORT: 1) Female 67 year old - Admit Diagnosis: Ondontogenic Infection of Jaw, UTI, and generalized weakness. 2) MAINTAINING A SAFE ENVIRONMENT: (i) Patient AOX3. (ii) Patient has history of Seizures -on Keppra and had missed dose prior to admission to ER. 3) BREATHING: On RA sats in the high 90s - no SOB, cyanosis, no sign of distress. 4) PAIN: (i) C/o of tenderness over the distal left clavicle. (ii) C/o of moderate to severe left shoulder pain 5) SKIN:(i) Patient has upper extremity ecchymosis over the anterior left shoulder. (ii) Patient has minor associated facial swelling (iii) No open wounds 6) COMMUNICATION:Patient is able to communicate her needs. 7) EATING & DRINKING: (i) Patient can eat & drink. On Cardiac Diet. (ii) Patient vomiting clear fluid on admission. 8) ELIMINATION: Patient is continent and has BRP. 9) CONTROLLING BODY TEMPERATURE: Patient is apyrexial 98. Patient Lactic acidosis - 4.8 and 3.3 respectively. 10) HYGIENE: Needs minimum assistance. 11) MOBILIZING: (i) Patient has bathroom privileges. (ii) However, c/o of falls few days. (iii) Patient has swollen extremities +2 pitting edema to the knees 12) SLEEPING: No issues - sleeping at the time of this report. 13)PLAN: (i) Maintaining Safety - SOB, Temperature within normally limits. (ii) Pain management. (iii) Assistance to be provided as needed. (iv) Will reassess patient on arrival to the unit
--- NOTE | 2023-02-23 10:40 | NUR ---
ADMISSION; 1) IV ACCESS FOLLOWS: (i) L AC 20g (ii) L Wrist 20g (iii) Site patent, dry, clean and no sign of infection or inflammation observed 2) IV 1/2 NS running at 75ml/hr - as per regime. 3) Patient has no open wounds - however has dry skin to lower extremities, superficial wounds, old sacral healed wound, bruises to right shoulder etc - refer to pic in patient folder. 4) Patient is doubly Incontinent - has a diaper in-situ. Was changed on admission. 5) Patient's lips very dry and cracked 6) Patient seem comfortable and no non-verbal signs of pain.
[2023-02-23 10:50] VITALS: BP 146/71; TEMP 98.3; O2SAT 98
--- NOTE | 2023-02-23 12:28 | NUR ---
MD Webb texted re: dry, cracking & bleeding lips. Await response.
[2023-02-23] MEDS ORDERED: AMLO-212 PO (13:07)
[2023-02-23] MEDS ORDERED: FERR-56 PO (13:07)
[2023-02-23] MEDS ORDERED: CARV6.252 PO (13:07)
[2023-02-23] MEDS ORDERED: FOLI1TAB94 PO (13:07)
[2023-02-23] MEDS ORDERED: GABA-532 PO (13:08)
[2023-02-23 13:32] LABS: IRON, SERUM 79 ug/dL (50-175)
[2023-02-23] MEDS ORDERED: DIATR MEGLU/DIATRIZOATE SODIUM 30 ML BOTTLE ONE ×2 (13:34→13:35)
[2023-02-23 13:46] LABS: FERRITIN 99 ng/mL (8-252)
[2023-02-23] MEDS ORDERED: CLINDAMYCIN PHOSPHATE IV 600 MG in IV DEXTROSE 5% 100 ML IV SCH (14:00)
[2023-02-23] MEDS: IV 1/2NS 1000 ML 1,000 ML IV PRN (14:15)
[2023-02-23] MEDS: CEFTRIAXONE 1 G in IV DEXTROSE 5% 50 ML IV SCH (14:15)
[2023-02-23 16:15] VITALS: BP 154/71; TEMP 98.2; O2SAT 97
[2023-02-23] MEDS: HYDROCODONE/APAP 5-325MG TABLET PO PRN ×2 (16:37→22:14)
--- NOTE | 2023-02-23 16:51 | NUR ---
Contrast administered by radiology for XR Small bowel follow through.
--- NOTE | 2023-02-23 17:30 | NUR ---
PATIENT HAD X3 LOOSE STOOL, CLEANED AND CHANGED, AND NOW ASLEEP COMFORTABLY.
--- NOTE | 2023-02-23 18:19 | NUR ---
END OF SHIFT REPORT: 1) No complaint of pain, SOB, discomfort for the rest of the day. 2) Will endorse care to night staff accordingly.
[2023-02-23] MEDS: levETIRAcetam IV 500 MG in IV DEXTROSE 5% 100 ML IV SCH (18:22)
--- NOTE | 2023-02-23 19:00 | NUR ---
RECEIVED IN BED , ALERT X3 COMPLAINING OF PAIN NORCO GIVEN, LEFT SHOULDER PAIN S/P FALL XRAY LEFT SHOULDER SHOWN MODERATE DISPLACED DISTAL CLAVICLE X4 DIARRHEA DUE TO BOWEL PREP ALL ORDERS NOTED X2 NORCO GIVEN FOR PAIN DURING MY SHIFT LUNGS CLEAR 1/2 NS GOING @ 75CC/HR. PATIENT IS HOMELESS.
[2023-02-23 20:38] VITALS: BP 138/60; TEMP 99.1; O2SAT 98
[2023-02-24] VITALS (7 sets, daily range): BP systolic 110–154; BP diastolic 51–91; TEMP 97.6–99.8; O2SAT 94–96
[2023-02-24] MEDS: HYDROCODONE/APAP 5-325MG TABLET PO PRN (02:00)
[2023-02-24 06:19] LABS: MEAN CORPUSCULAR HEMOGLOBIN 29.5 uug (24.7-32.8); MEAN CORPUSCULAR VOLUME 86.8 fL (75.5-95.3); PLATELET COUNT (AUTO) 137 K/uL (179-408)
[2023-02-24] MEDS: levETIRAcetam IV 500 MG in IV DEXTROSE 5% 100 ML IV SCH (06:33)
[2023-02-24] MEDS: PANTOPRAZOLE SODIUM 40 MG TABLET.DR PO SCH (06:34)
[2023-02-24 06:49] LABS: CREATININE 1.1 mg/dL (0.6-1.3); MAGNESIUM 1.5 mg/dL (1.8-2.4); PHOSPHOROUS 1.2 mg/dL (2.5-4.9); POTASSIUM 3.8 mmol/L (3.5-5.1)
[2023-02-24 07:02] LABS: HEMATOCRIT 20.6 % (31.2-41.9)
[2023-02-24] MEDS: CHOLECALCIFEROL 1,000 UNIT TABLET PO SCH (08:20)
[2023-02-24] MEDS: IV 1/2NS 1000 ML 1,000 ML IV PRN (11:37)
[2023-02-24] MEDS ORDERED: NEUTRA PHOS PACKET PO ONE (13:15)
[2023-02-24] MEDS: CEFTRIAXONE 1 G in IV DEXTROSE 5% 50 ML IV SCH (13:33)
[2023-02-24] MEDS ORDERED: MAGNESIUM SULFATE/D5W 100 ML IV SCH (14:00)
[2023-02-24] MEDS: GABAPENTIN 100 MG CAPSULE PO SCH (17:05)
[2023-02-24] MEDS: levETIRAcetam 250 MG TABLET PO SCH (17:05)
[2023-02-24] MEDS: CARVEDILOL 6.25 MG TABLET PO SCH (17:05)
--- NOTE | 2023-02-24 18:34 | NUR ---
Awake and alert. Patient complaining of shoulder pain, called central supply to request for immobilizer. Patient for blood transfusion today.
--- NOTE | 2023-02-25 00:05 | NUR ---
RECEIVED REPORT FROM AM NURSE PT IS ALERT AND ORIENTED X4 PT HAS IV FLUIDS OF 1/2NS INFUSING AT 75ML AND HOUR CHECKED ORDERS AT START OF SHIFT PT HAS ORDER FOR 1 UNIT OF BLOOD HGB IS 7.0 AND HCT IS 20.6 NO SIGNS OF DISTRESS NOTED. STARTED ONE UNIT OF BLOOD VITALS TAKEN ORDERED PT GIVEN TYLENOL BECAUSE TEMP. SLIGHTLY ELEVATED TO 99.1 CHECKED 2300 TEMP IS 98.8. NO ADVERSE REACTION FROM BLOOD WILL CONTINUE TO MONITOR CALL LIGHT WITHIN REACH, BED IN LOW POSITION, AND ALL NEEDS ATTENDED TO WILL CONTINUE TO MONITOR FOR FALLS AND SAFETY.
[2023-02-25] MEDS: HYDROCODONE/APAP 5-325MG TABLET PO PRN (00:21)
[2023-02-25 00:50] VITALS: BP 162/85; TEMP 99.1
--- NOTE | 2023-02-25 00:53 | NUR ---
BLOOD TRANSFUSION HAS ENDED NO SIGNS OF ADVERSE REACTION WILL CONTINUE TO MONITOR HOURLY PT REQUEST PAIN MEDICATION.
--- NOTE | 2023-02-25 00:54 | NUR ---
PT GIVEN NORCO 5/325 FOR PAIN WILL CONTINUE TO MONITOR FOR SAFETY.
[2023-02-25 04:50] VITALS: BP 181/99; TEMP 98.9; O2SAT 96
[2023-02-25] MEDS: PANTOPRAZOLE SODIUM 40 MG TABLET.DR PO SCH (06:20)
--- NOTE | 2023-02-25 06:52 | NUR ---
PT WAS GIVEN AM MEDICATION AND WAS MOVED TO ROOM 320 NO SIGNS OF DISTRESS NOTED. NOTIFIED DR JAY FOR PRN B/P MED PT BP IS 181/99. WILL ENDORSE TO AM NURSE
--- NOTE | 2023-02-25 06:55 | NUR ---
PT REFUSED AM LABS WILL ENDORSE TO AM NURSE
[2023-02-25 08:20] VITALS: BP 123/81; TEMP 98.4; O2SAT 98
[2023-02-25] MEDS: CARVEDILOL 6.25 MG TABLET PO SCH ×2 (09:49→18:28)
[2023-02-25] MEDS: FERROUS SULFATE 325 MG TABEC PO SCH (09:49)
[2023-02-25] MEDS: FOLIC ACID 1 MG TABLET PO SCH (09:49)
[2023-02-25] MEDS: levETIRAcetam 250 MG TABLET PO SCH ×2 (09:50→18:28)
[2023-02-25] MEDS: GABAPENTIN 100 MG CAPSULE PO SCH ×2 (09:50→18:28)
[2023-02-25] MEDS: AMLODIPINE 5 MG TABLET PO SCH (09:50)
[2023-02-25] MEDS: CHOLECALCIFEROL 1,000 UNIT TABLET PO SCH (09:50)
[2023-02-25] MEDS: MORPHINE SULFATE 2 MG/1 ML DISP.SYRIN IV PRN ×3 (10:39→22:36)
[2023-02-25 11:54] VITALS: BP 171/92; TEMP 98.1; O2SAT 98
[2023-02-25] MEDS: CEFTRIAXONE 1 G in IV DEXTROSE 5% 50 ML IV SCH (13:10)
[2023-02-25 14:59] LABS: HEMATOCRIT 27.3 % (31.2-41.9)
[2023-02-25 15:07] LABS: CREATININE 0.7 mg/dL (0.6-1.3); MAGNESIUM 1.4 mg/dL (1.8-2.4); PHOSPHOROUS 2.1 mg/dL (2.5-4.9); POTASSIUM 3.4 mmol/L (3.5-5.1)
[2023-02-25 16:02] VITALS: BP 168/85; TEMP 98; O2SAT 97
[2023-02-25] MEDS: GLUCERNA SHAKE 237 ML CAN PO SCH (17:50)
--- NOTE | 2023-02-25 19:30 | NUR ---
Received patient laying in bed in no acute distress. Alert and oriented x 4. Midline patent and intact. Continue to monitor and plan of care.
[2023-02-25 20:00] VITALS: BP 156/96; TEMP 98.6; O2SAT 97
[2023-02-26] MEDS: MORPHINE SULFATE 2 MG/1 ML DISP.SYRIN IV PRN (02:59)
[2023-02-26 04:00] VITALS: BP 155/90; TEMP 98.6; O2SAT 98
[2023-02-26] MEDS: IV 1/2NS 1000 ML 1,000 ML IV PRN (05:01)
[2023-02-26] MEDS: PANTOPRAZOLE SODIUM 40 MG TABLET.DR PO SCH (06:39)
[2023-02-26 06:43] LABS: HEMATOCRIT 27.3 % (31.2-41.9); MEAN CORPUSCULAR HEMOGLOBIN 29.4 uug (24.7-32.8); MEAN CORPUSCULAR VOLUME 85.8 fL (75.5-95.3); PLATELET COUNT (AUTO) 111 K/uL (179-408)
[2023-02-26 07:03] LABS: CREATININE 0.6 mg/dL (0.6-1.3); MAGNESIUM 1.4 mg/dL (1.8-2.4); PHOSPHOROUS 2.7 mg/dL (2.5-4.9); POTASSIUM 3.9 mmol/L (3.5-5.1)
[2023-02-26] MEDS: GABAPENTIN 100 MG CAPSULE PO SCH (08:06)
[2023-02-26] MEDS: CHOLECALCIFEROL 1,000 UNIT TABLET PO SCH (08:06)
[2023-02-26] MEDS: levETIRAcetam 250 MG TABLET PO SCH (08:06)
[2023-02-26] MEDS: FOLIC ACID 1 MG TABLET PO SCH (08:06)
[2023-02-26] MEDS: FERROUS SULFATE 325 MG TABEC PO SCH (08:06)
[2023-02-26] MEDS: CARVEDILOL 6.25 MG TABLET PO SCH (08:12)
[2023-02-26] MEDS: AMLODIPINE 5 MG TABLET PO SCH (08:13)
[2023-02-26] MEDS: GLUCERNA SHAKE 237 ML CAN PO SCH (08:13)
[2023-02-26 11:52] VITALS: BP 131/69; TEMP 98.8; O2SAT 98
[2023-02-26] MEDS ORDERED: MAGNESIUM OXIDE 400 MG TABLET PO SCH (12:00)
[2023-02-26] MEDS ORDERED: NITR100C6 PO (13:27)
[2023-02-26] MEDS ORDERED: NITROFURANTOIN/NITROFURAN MAC 100 MG CAPSULE PO ONE (16:00)
--- NOTE | 2023-02-26 16:08 | NUR ---
0730-Rec'd patient in bed, asleep, able to wake up on verbal commands/tactile stimuli. Patient is alert/ox4, verbalizes needs and follows directions, denies pain. On R/A, denies pain, ML MONTY flushing well with site intact. NS @ 75CC/hr. No s/s of fluid overload or dehydration noted. Call light within reach, safety reminders precautions provided/encouraged to use call light for help every time needed with good understanding. 0900-Scheduled medications administered as ordered with no ASE noted; patient eating breakfast, oral fluids taken well. No swallowing problems noted. 1130-Patient seen by Markell Brandt INTERNAL CONTROL CONSULTANT with orders to DC today. 1200-Patient P/O ML MONTY, applied pressure to puncture site and a band-aid. Explained to patient need to reinsert an IV for her IV atb dose. Patient refused, will offered at a later time. 1300-Explained to patient need to reinsert IV for her ATB, patient declined, risks vs benefits were explained. Patient verbalized understanding, still refused IV reinsertion. Wishes and choices respected; Markell Rodriguez was notified & per Markell to give patient a X1 dose of Macrobid 100mg oral antibiotic. 1330-Patient voices out wishes to go home and alleges that she wants the walker she came with on admission. Informed patient there is no walker in the inventory list. Per patient she is certain that she checked into the hospital with her own walker. 1430-Checked with ER dept. no walker reported or inventoried in patient's belongings. 1545-Provided a facility walker, patient got very upset and declined walker; followed patient and offered a different walker and patient simply refused exit facility stating, "you can through that paperwork to the trash" Patient exit facility and refused any other treatment.
== END 2023-02-26 15:45 | disposition home or self-care (01) | DRG 689 ==
LOC: ER 03:13 → MEDSURG3 10:17
PROVIDERS: ADMIT Nurse Practitioner Acute Care; ATTEND Nurse Practitioner Family
PROC: 05HC33Z Insertion of Infusion Device into Left Basilic Vein, Percutaneous Approach (ICD-10-PCS; 2023-02-23)
PROC: 05H633Z Insertion of Infusion Device into Left Subclavian Vein, Percutaneous Approach (ICD-10-PCS; 2023-02-23)
PROC: B547ZZA Ultrasonography of Left Subclavian Vein, Guidance (ICD-10-PCS; 2023-02-23)
PROC: 30233N1 Transfusion of Nonautologous Red Blood Cells into Peripheral Vein, Percutaneous Approach (ICD-10-PCS; principal; 2023-02-24)
DX: N39.0 Urinary tract infection, site not specified (principal); N17.0 Acute kidney failure with tubular necrosis; E87.20 Acidosis, unspecified; G40.909 Epilepsy, unspecified, not intractable, without status epilepticus; D57.1 Sickle-cell disease without crisis; D63.8 Anemia in other chronic diseases classified elsewhere; E11.40 Type 2 diabetes mellitus with diabetic neuropathy, unspecified; E83.42 Hypomagnesemia; G89.4 Chronic pain syndrome; I10 Essential (primary) hypertension; I25.10 Atherosclerotic heart disease of native coronary artery without angina pectoris; Z59.00 Homelessness unspecified; Z86.73 Personal history of transient ischemic attack (TIA), and cerebral infarction without residual deficits; R53.1 Weakness; S42.032A Displaced fracture of lateral end of left clavicle, initial encounter for closed fracture; W19.XXXA Unspecified fall, initial encounter; Y93.9 Activity, unspecified; Y92.89 Other specified places as the place of occurrence of the external cause; S40.012A Contusion of left shoulder, initial encounter; Z91.148 Patient's other noncompliance with medication regimen for other reason; B96.89 Other specified bacterial agents as the cause of diseases classified elsewhere; Z98.61 Coronary angioplasty status
CPT/HCPCS: 36415; 70030-TC; 71045; 73030; 74250; 83550; 83605; 83735; 84100; 84484; 85018; 85025; 85730; 86850; 86900; 86901; 86920; 87040; 93005; 97535-GO-CO; C1758; G0378; J0696; J0780; J1170; J1953; J2270; J2405; J3475; J3490; J7040; P9016; Q9963

== ENCOUNTER 2023-08-17 12:26 | Emergency (ER) | payer OTHER ==
[~2023-08-17] VITALS: Ht 167.6 cm; Wt 68.9 kg
[~2023-08-17 12:26] MED LIST changes: +AMLO-212 PO; +CARV6.252 PO; +FERR-56 PO; -FERR325T23 PO; +FOLI1TAB94 PO; +LEVE250T2 PO; -LEVE500T9 PO; +NITR100C6 PO; -ONDA4TAB5 PO
[2023-08-17] MEDS ORDERED: THIAMINE HCL 200 MG/2 ML VIAL IV ONE (12:45)
[2023-08-17] MEDS ORDERED: MAGNESIUM SULFATE 2 GM in IV DEXTROSE 5% 100 ML IV ONE (12:45)
[2023-08-17] MEDS ORDERED: IV NORMAL SALINE 1000 ML BAG IV ONE (12:45)
[2023-08-17] MEDS ORDERED: diphenhydrAMINE 50 MG/1 ML VIAL IV ONE (12:45)
[2023-08-17] MEDS ORDERED: DIAZEPAM 10 MG/2 ML DISP.SYRIN IV ONE (12:45)
[2023-08-17] MEDS ORDERED: diphenhydrAMINE 50 MG/1 ML VIAL ONE (13:26)
[2023-08-17] MEDS ORDERED: MAGNESIUM SULFATE/D5W 200 ML ONE (13:27)
[2023-08-17] MEDS ORDERED: THIAMINE HCL 200 MG/2 ML VIAL ONE (13:27)
[2023-08-17] MEDS ORDERED: DIAZEPAM 5 MG TABLET ONE (16:22)
[2023-08-17 19:32] VITALS: BP 129/66; O2SAT 96
== END 2023-08-17 18:30 | disposition left against medical advice (07) ==
LOC: ER 12:31
DX: Z00.00 Encounter for general adult medical examination without abnormal findings (principal); D64.9 Anemia, unspecified; F17.200 Nicotine dependence, unspecified, uncomplicated; Z79.899 Other long term (current) drug therapy; Z98.890 Other specified postprocedural states; Z59.00 Homelessness unspecified; Z91.018 Allergy to other foods
CPT/HCPCS: 99284; 96365; 96375; J1200; J3475 ×2; J3411; J7040; A4606; A4663

== ENCOUNTER 2023-09-05 21:02 | Emergency (ER) | payer OTHER ==
[~2023-09-05] VITALS: Ht 157.5 cm; Wt 61.2 kg
[2023-09-05 22:29] LABS: BASOPHILS # (AUTO) 0.1 K/UL (0.0-0.2); BASOPHILS % (AUTO) 1.6 % (0.0-2.0); EOSINOPHILS # (AUTO) 0.3 K/uL (0.0-0.7); EOSINOPHILS % (AUTO) 4.4 % (0.0-7.0); HEMATOCRIT 23.5 % (31.2-41.9); LYMPHOCYTES # (AUTO) 1.8 K/uL (0.8-4.8); LYMPHOCYTES % (AUTO) 30.9 % (20.5-51.5); MEAN CORPUSCULAR HEMOGLOBIN 26.5 uug (24.7-32.8); MEAN CORPUSCULAR HGB CONC 34 g/dL (32.3-35.6); MEAN CORPUSCULAR VOLUME 78.3 fL (75.5-95.3); MONOCYTES # (AUTO) 0.3 K/uL (0.1-1.30); NEUTROPHILS # (AUTO) 3.4 K/uL (1.8-8.9); NEUTROPHILS % (AUTO) 58.1 % (38.5-71.5); PLATELET COUNT (AUTO) 506 K/uL (179-408); RED CELL DISTRIBUTION WIDTH 16.7 % (12.3-17.7); WHITE BLOOD COUNT (AUTO) 5.8 K/uL (3.8-11.8)
[2023-09-05 22:31] LABS: DIFFERENTIAL COMMENT 1
[2023-09-05 22:59] LABS: LACTIC ACID 3.1 mmol/L (0.4-2.0)
[2023-09-05 23:16] LABS: CALCIUM 9.3 mg/dL (8.5-10.1); CREATININE 0.9 mg/dL (0.6-1.3); POTASSIUM 3.7 mmol/L (3.5-5.1)
[2023-09-05 23:24] LABS: ALBUMIN 3.8 g/dL (3.4-5.0); BILIRUBIN,TOTAL 0.4 mg/dL (0.2-1.0); MAGNESIUM 1.7 mg/dL (1.8-2.4); TOTAL PROTEIN, SERUM 7.6 g/dL (6.4-8.2)
[2023-09-06] MEDS ORDERED: CEPH500C2 PO (03:05)
[2023-09-06] MEDS ORDERED: ACETAMINOPHEN 325 MG TABLET PO ONE (03:15)
[2023-09-06] MEDS ORDERED: ACETAMINOPHEN 325 MG TABLET ONE (03:17)
[2023-09-06 03:28] VITALS: BP 158/85; TEMP 98.6; O2SAT 96
== END 2023-09-06 03:29 | disposition home or self-care (01) ==
LOC: ER 21:02
DX: S80.02XA Contusion of left knee, initial encounter (principal); S80.01XA Contusion of right knee, initial encounter; R56.9 Unspecified convulsions; L03.116 Cellulitis of left lower limb; L03.115 Cellulitis of right lower limb; F10.129 Alcohol abuse with intoxication, unspecified; L30.9 Dermatitis, unspecified; R03.0 Elevated blood-pressure reading, without diagnosis of hypertension; G93.40 Encephalopathy, unspecified; M25.562 Pain in left knee; M25.561 Pain in right knee; D64.9 Anemia, unspecified; I25.10 Atherosclerotic heart disease of native coronary artery without angina pectoris; Z91.018 Allergy to other foods; F17.200 Nicotine dependence, unspecified, uncomplicated; Z98.890 Other specified postprocedural states; Z79.899 Other long term (current) drug therapy; Z59.00 Homelessness unspecified; W18.39XA Other fall on same level, initial encounter; Y93.89 Activity, other specified; Y92.89 Other specified places as the place of occurrence of the external cause; Y99.8 Other external cause status
CPT/HCPCS: 36415; 73560; 83605; 83735; 84484; 85025; 93005; A4606; A4663; G0480

== ENCOUNTER 2023-11-19 18:50 | Emergency (ER) | payer OTHER ==
[~2023-11-19] VITALS: Ht 165.1 cm; Wt 54.4 kg
[~2023-11-19 18:50] MED LIST changes: +CEPH500C2 PO
[2023-11-19 19:56] LABS: BASOPHILS # (AUTO) 0.1 K/UL (0.0-0.2); BASOPHILS % (AUTO) 0.7 % (0.0-2.0); EOSINOPHILS % (AUTO) 0.2 % (0.0-7.0); HEMATOCRIT 25.4 % (31.2-41.9); HEMOGLOBIN 8.5 g/dL (10.9-14.3); LYMPHOCYTES # (AUTO) 1.2 K/uL (0.8-4.8); LYMPHOCYTES % (AUTO) 14.5 % (20.5-51.5); MEAN CORPUSCULAR HEMOGLOBIN 26.8 uug (24.7-32.8); MEAN CORPUSCULAR HGB CONC 33 g/dL (32.3-35.6); MEAN CORPUSCULAR VOLUME 80.1 fL (75.5-95.3); MONOCYTES # (AUTO) 0.3 K/uL (0.1-1.30); NEUTROPHILS # (AUTO) 6.5 K/uL (1.8-8.9); NEUTROPHILS % (AUTO) 80.6 % (38.5-71.5); PLATELET COUNT (AUTO) 159 K/uL (179-408); RED BLOOD CELL COUNT(AUTO) 3.17 MIL/uL (3.63-4.92); RED CELL DISTRIBUTION WIDTH 19.3 % (12.3-17.7); WHITE BLOOD COUNT (AUTO) 8.1 K/uL (3.8-11.8)
[2023-11-19 20:24] LABS: ALBUMIN 4.2 g/dL (3.4-5.0); BILIRUBIN,TOTAL 0.8 mg/dL (0.2-1.0); CALCIUM 9.5 mg/dL (8.5-10.1); CREATININE 1.1 mg/dL (0.6-1.3); POTASSIUM 3.9 mmol/L (3.5-5.1); TOTAL PROTEIN, SERUM 8.7 g/dL (6.4-8.2)
[2023-11-19 20:28] LABS: DIFFERENTIAL COMMENT 1; LACTIC ACID 4.3 mmol/L (0.4-2.0)
[2023-11-19] MEDS ORDERED: CEFTRIAXONE /D5W 50ML IVPB **ER PYXIS IV ONE (20:46)
[2023-11-19] MEDS ORDERED: ONDANSETRON 4 MG/2 ML VIAL ONE (20:47)
[2023-11-19] MEDS: IV NS 1000 ML 1,000 ML IV ONE (21:05)
[2023-11-19] MEDS: ONDANSETRON 4 MG/2 ML VIAL IV ONE (21:05)
[2023-11-19] MEDS: CEFTRIAXONE 1 G in IV DEXTROSE 5% 50 ML IV ONE (21:05)
[2023-11-19 22:13] LABS: *BILIRUBIN,URIN 1+ (NEGATIVE); *BLOOD, URINE 1+ (NEGATIVE); *CLARITY,URINE CLEAR (CLEAR); *COLOR,URINE YELLOW (YELLOW); *KETONES,URINE 3+ (NEGATIVE); *PROTEIN,URINE 2+ (NEGATIVE); *UROBILINOGEN,URINE 0.2 E.U./dl (NORMAL); LEUKOCYTE ESTERASE ,URINE NEGATIVE (NEGATIVE); NITRITE, URINE NEGATIVE (NEGATIVE); PH,URINE 5.5 (5.0-8.0); UGLUCOSE NEGATIVE (NEGATIVE)
[2023-11-19 22:56] LABS: *AMPHETAMINE, URINE NEGATIVE (NEGATIVE); *BARBITURATE, URINE NEGATIVE (NEGATIVE); *BENZODIAZEPINE, URINE NEGATIVE (NEGATIVE); *CANNABINOID, URINE NEGATIVE (NEGATIVE); *COCCAINE, URINE NEGATIVE (NEGATIVE); *OPIATE, URINE NEGATIVE (NEGATIVE); *PHENCYCLIDINE SCREEN,URINE NEGATIVE (NEGATIVE); FENTANYL, URINE NEGATIVE (NEGATIVE)
[2023-11-19 23:16] LABS: BACTERIA,URINE MODERATE /HPF (NONE SEEN); RBC,URINE 0-3 /HPF (0-3); SQUAMOUS EPITHELIAL CELL,UR MODERATE /HPF (NONE SEEN)
[2023-11-19 23:17] LABS: WAXY CASTS,URINE 0-3 /LPF (NONE SEEN)
[2023-11-19] MEDS ORDERED: KETOROLAC TROMETHAMINE 30 MG INJ ONE (23:31)
[2023-11-19] MEDS: KETOROLAC TROMETHAMINE 30 MG INJ IVP ONE (23:33)
[2023-11-20] MEDS: IV NS 1000 ML 1,000 ML IV ONE (00:13)
[2023-11-20] MEDS ORDERED: levETIRAcetam 500 MG/5 ML VIAL IV ONE (03:58)
[2023-11-20] MEDS ORDERED: NITR100C6 PO (04:05)
[2023-11-20] MEDS: levETIRAcetam IV 500 MG in IV DEXTROSE 5% 100 ML IV ONE (04:12)
[2023-11-20] MEDS ORDERED: KETOROLAC TROMETHAMINE 30 MG INJ ONE (06:37)
[2023-11-20] MEDS: KETOROLAC TROMETHAMINE 30 MG INJ IM ONE (06:39)
[2023-11-20 08:56] VITALS: BP 122/80; TEMP 97; O2SAT 99
== END 2023-11-20 08:57 | disposition home or self-care (01) ==
LOC: ER 18:52
DX: M79.10 Myalgia, unspecified site (principal); R60.0 Localized edema; G40.909 Epilepsy, unspecified, not intractable, without status epilepticus; I25.10 Atherosclerotic heart disease of native coronary artery without angina pectoris; A41.9 Sepsis, unspecified organism; D64.9 Anemia, unspecified; F17.200 Nicotine dependence, unspecified, uncomplicated; Z79.899 Other long term (current) drug therapy; Z59.00 Homelessness unspecified; Z91.018 Allergy to other foods
CPT/HCPCS: 80053; 81001; 82248; 83880; 85025; 87040 ×2; 84484; 36415 ×2; 93005; 71045; 70450; 93970; 99285; 96365; 96375; 83605 ×3; 80320; 80307; 96361; 96367; 96372; J0696; J1885 ×2; J2405; J7040 ×2; J1953 ×2; A4606; A4663; G0480

== ENCOUNTER 2023-12-30 07:47 | Emergency (ER) | payer OTHER ==
[~2023-12-30] VITALS: Ht 167.6 cm; Wt 63.5 kg
[2023-12-30] MEDS ORDERED: LEVE500T20 PO (08:16)
[2023-12-30] MEDS ORDERED: LOSA100T31 PO (08:16)
[2023-12-30] MEDS ORDERED: HYDR25TA4 PO (08:16)
[2023-12-30 09:15] LABS: BASOPHILS # (AUTO) 0.1 K/UL (0.0-0.2); EOSINOPHILS % (AUTO) 0.2 % (0.0-7.0); HEMATOCRIT 27.9 % (31.2-41.9); HEMOGLOBIN 9.2 g/dL (10.9-14.3); LYMPHOCYTES # (AUTO) 1.9 K/uL (0.8-4.8); LYMPHOCYTES % (AUTO) 28.8 % (20.5-51.5); MEAN CORPUSCULAR HEMOGLOBIN 27.7 uug (24.7-32.8); MEAN CORPUSCULAR HGB CONC 33 g/dL (32.3-35.6); MEAN CORPUSCULAR VOLUME 83.5 fL (75.5-95.3); MONOCYTES # (AUTO) 0.4 K/uL (0.1-1.30); MONOCYTES % (AUTO) 6.1 % (0.0-11.0); NEUTROPHILS # (AUTO) 4.2 K/uL (1.8-8.9); NEUTROPHILS % (AUTO) 63.9 % (38.5-71.5); PLATELET COUNT (AUTO) 105 K/uL (179-408); RED BLOOD CELL COUNT(AUTO) 3.34 MIL/uL (3.63-4.92); RED CELL DISTRIBUTION WIDTH 18.8 % (12.3-17.7); WHITE BLOOD COUNT (AUTO) 6.5 K/uL (3.8-11.8)
[2023-12-30 09:26] LABS: DIFFERENTIAL COMMENT 1
[2023-12-30 09:29] LABS: ETHANOL 39 MG/DL (0-10)
[2023-12-30 09:33] LABS: AMMONIA < 10 umol/L (11-32)
[2023-12-30 10:07] LABS: CARBON DIOXIDE 19 mmol/L (21-32); CHLORIDE 94 mmol/L (98-107); CREATININE 1.5 mg/dL (0.6-1.3); GLUCOSE 58 mg/dL (74-106); POTASSIUM 4.6 mmol/L (3.5-5.1); SODIUM SERUM 140 mmol/L (136-145); UREA NITROGEN, BLOOD 38 mg/dL (7-18)
[2023-12-30 10:16] LABS: ALANINE AMINOTRANSFERASE 28 U/L (14-59); ALBUMIN 4.3 g/dL (3.4-5.0); ALKALINE PHOSPHATASE 94 U/L (50-136); ASPARTATE AMINOTRANSFERASE 70 U/L (15-37); BILIRUBIN,DIRECT 0.2 mg/dL (0.0-0.2); BILIRUBIN,TOTAL 0.7 mg/dL (0.2-1.0); TOTAL PROTEIN, SERUM 8.5 g/dL (6.4-8.2)
[2023-12-30 10:23] LABS: CALCIUM 9.5 mg/dL (8.5-10.1)
[2023-12-30] MEDS: MORPHINE SULFATE 4 MG/1 ML DISP.SYRIN IM ONE (10:30)
[2023-12-30] MEDS: diphenhydrAMINE 50 MG/1 ML VIAL IM ONE (10:30)
[2023-12-30] MEDS ORDERED: diphenhydrAMINE 50 MG/1 ML VIAL ONE (10:31)
[2023-12-30] MEDS ORDERED: MORPHINE SULFATE 4 MG/1 ML DISP.SYRIN ONE (10:32)
[2023-12-30 13:05] VITALS: BP 110/70; TEMP 97; O2SAT 99
[2023-12-30 13:52] LABS: ACETAMINOPHEN < 2.0 ug/mL (10-30)
== END 2023-12-30 13:07 | disposition home or self-care (01) ==
LOC: ER 07:47
DX: G40.909 Epilepsy, unspecified, not intractable, without status epilepticus (principal); D64.9 Anemia, unspecified; F10.10 Alcohol abuse, uncomplicated; A41.9 Sepsis, unspecified organism; F17.200 Nicotine dependence, unspecified, uncomplicated; Z79.899 Other long term (current) drug therapy; Z59.00 Homelessness unspecified; Z91.018 Allergy to other foods; Y90.0 Blood alcohol level of less than 20 mg/100 ml
CPT/HCPCS: 80076; 80048; 82140; 84443; 85025; 85730; 84484; 36415; 93005; 71045; 70450; 93970; 99285; 96372 ×2; 80299; 80320; J1200; J2270; J7040; A4606; A4663; G0480

== ENCOUNTER 2024-08-21 09:30 | Inpatient (IN) | payer MEDICARE, OTHER ==
[~2024-08-21] VITALS: Ht 167.6 cm; Wt 59.0 kg
[~2024-08-21 09:30] MED LIST changes: -AMLO-212 PO; +HYDR25TA4 PO; -LEVE250T2 PO; +LEVE500T20 PO; +LOSA100T31 PO; -NITR100C6 PO
[2024-08-21 10:37] LABS: BASOPHILS # (AUTO) 0.1 K/UL (0.0-0.2); BASOPHILS % (AUTO) 0.5 % (0.0-2.0); HEMATOCRIT 25.6 % (31.2-41.9); HEMOGLOBIN 8.4 g/dL (10.9-14.3); LYMPHOCYTES # (AUTO) 2.3 K/uL (0.8-4.8); LYMPHOCYTES % (AUTO) 16.9 % (20.5-51.5); MEAN CORPUSCULAR HEMOGLOBIN 27.7 uug (24.7-32.8); MEAN CORPUSCULAR HGB CONC 33 g/dL (32.3-35.6); MEAN CORPUSCULAR VOLUME 84.1 fL (75.5-95.3); MONOCYTES # (AUTO) 0.5 K/uL (0.1-1.30); MONOCYTES % (AUTO) 3.6 % (0.0-11.0); NEUTROPHILS # (AUTO) 10.6 K/uL (1.8-8.9); PLATELET COUNT (AUTO) 299 K/uL (179-408); RED BLOOD CELL COUNT(AUTO) 3.04 MIL/uL (3.63-4.92); RED CELL DISTRIBUTION WIDTH 16.2 % (12.3-17.7); WHITE BLOOD COUNT (AUTO) 13.4 K/uL (3.8-11.8)
[2024-08-21 10:47] LABS: DIFFERENTIAL COMMENT 1
[2024-08-21 10:48] LABS: CALCIUM 8.4 mg/dL (8.5-10.1); CARBON DIOXIDE 10 mmol/L (21-32); CHLORIDE 98 mmol/L (98-107); CREATININE 2.1 mg/dL (0.6-1.3); GLUCOSE 73 mg/dL (74-106); POTASSIUM 4.4 mmol/L (3.5-5.1); SODIUM SERUM 146 mmol/L (136-145); UREA NITROGEN, BLOOD 29 mg/dL (7-18)
[2024-08-21 11:01] LABS: ALANINE AMINOTRANSFERASE 22 U/L (14-59); ALBUMIN 3.7 g/dL (3.4-5.0); ALKALINE PHOSPHATASE 102 U/L (50-136); ASPARTATE AMINOTRANSFERASE 52 U/L (15-37); BILIRUBIN,DIRECT 0.2 mg/dL (0.0-0.2); BILIRUBIN,TOTAL 0.6 mg/dL (0.2-1.0); NT-PRO BNP 353 pg/mL (0-125); TOTAL PROTEIN, SERUM 7.7 g/dL (6.4-8.2)
[2024-08-21 11:42] LABS: ABG BASE EXCESS -14.5 mmol/L (-2.0-3.0); ABG PCO2 16.5 mmHg (32.0-45.0); ABG PH 7.353 (7.350-7.450); ABG PO2 126.3 mmHg (83.0-108.0); ABG SITE LEFT RADIAL; ABG TOTAL HEMOGLOBIN 10.3 G/dL (12.0-16.0); AaDO2 98.5 mmHg; COHb 0.3 % (0.5-1.5); MetHb 0.3 % (0.0-1.5); O2Hb 97.8 % (94.0-98.0)
[2024-08-21] MEDS ORDERED: ACETAMINOPHEN 325 MG TABLET PO PRN (15:00)
[2024-08-21] MEDS ORDERED: LORAZEPAM 2 MG/1 ML VIAL IV PRN (15:15)
[2024-08-21 15:47] LABS: ACETONE, SERUM SMALL (NEGATIVE)
[2024-08-21 15:51] LABS: ETHANOL 53 MG/DL (0-10)
[2024-08-21] MEDS: levETIRAcetam 250 MG TABLET PO SCH (17:00)
[2024-08-21] MEDS ORDERED: ONDANSETRON 4 MG/2 ML VIAL ONE (17:34)
[2024-08-21] MEDS: ONDANSETRON 4 MG/2 ML VIAL IV ONE (17:35)
[2024-08-21] MEDS ORDERED: CLONIDINE HCL 0.1 MG TABLET ONE (19:59)
[2024-08-21] MEDS: CLONIDINE HCL 0.1 MG TABLET PO ONE (20:01)
[2024-08-21] MEDS ORDERED: hydrALAZINE HCL 20 MG/1 ML VIAL ONE (22:44)
[2024-08-21] MEDS: hydrALAZINE HCL 20 MG/1 ML VIAL IV PRN (22:53)
[2024-08-21 23:30] VITALS: BP 160/65; TEMP 98; O2SAT 99
[2024-08-21] MEDS: AMLODIPINE 5 MG TABLET PO SCH (23:37)
[2024-08-21] MEDS: IV LACTATED RINGERS SOLUTION 1,000 ML IV PRN (23:37)
[2024-08-21] MEDS: HYDROCODONE/APAP 5-325MG TABLET PO PRN (23:37)
[2024-08-21] MEDS: HEPARIN SODIUM,PORCINE 5,000 UNITS/ML VIAL SQ SCH (23:40)
[2024-08-22 04:00] VITALS: BP 144/74; TEMP 99.4; O2SAT 100
[2024-08-22] MEDS: PANTOPRAZOLE SODIUM 40 MG TABLET.DR PO SCH ×2 (07:05→16:45)
[2024-08-22 07:33] VITALS: BP 134/86; TEMP 98.8; O2SAT 96
[2024-08-22 11:19] VITALS: BP 144/81; TEMP 97.8; O2SAT 97
[2024-08-22] MEDS: FOLIC ACID 1 MG TABLET PO SCH (15:24)
[2024-08-22] MEDS: THIAMINE HCL 100 MG TABLET PO SCH (15:24)
[2024-08-22] MEDS: CHLORDIAZEPOXIDE HCL 25 MG CAPSULE PO SCH (15:24)
[2024-08-22 16:06] VITALS: BP 143/82; TEMP 98; O2SAT 100
[2024-08-22] MEDS: SUCRALFATE 1 G TABLET PO SCH (16:45)
[2024-08-22] MEDS: ONDANSETRON 4 MG/2 ML VIAL IV PRN (22:01)
[2024-08-22 22:59] VITALS: BP 156/81; TEMP 98.6; O2SAT 98
[2024-08-23] VITALS (7 sets, daily range): BP systolic 97–173; BP diastolic 52–95; TEMP 97.2–98.5; O2SAT 97–100
[2024-08-23 09:10] LABS: *CREATININE,URINE 35.2 mg/dL (30-125); *URINE TOTAL PROTEIN RANDOM 67.3 mg/dL (<150/24HR)
[2024-08-23 09:14] LABS: *BILIRUBIN,URIN NEGATIVE (NEGATIVE); *BLOOD, URINE NEGATIVE (NEGATIVE); *CLARITY,URINE CLOUDY (CLEAR); *COLOR,URINE YELLOW (YELLOW); *KETONES,URINE NEGATIVE (NEGATIVE); *PROTEIN,URINE 2+ (NEGATIVE); *UROBILINOGEN,URINE 0.2 E.U./dl (NORMAL); LEUKOCYTE ESTERASE ,URINE 2+ (NEGATIVE); NITRITE, URINE NEGATIVE (NEGATIVE); UGLUCOSE TRACE (NEGATIVE)
[2024-08-23 10:17] LABS: BASOPHILS # (AUTO) 0.1 K/UL (0.0-0.2); EOSINOPHILS % (AUTO) 0.4 % (0.0-7.0); HEMATOCRIT 29.5 % (31.2-41.9); LYMPHOCYTES # (AUTO) 1.9 K/uL (0.8-4.8); LYMPHOCYTES % (AUTO) 31.1 % (20.5-51.5); MEAN CORPUSCULAR HEMOGLOBIN 27.8 uug (24.7-32.8); MEAN CORPUSCULAR HGB CONC 34 g/dL (32.3-35.6); MEAN CORPUSCULAR VOLUME 81.9 fL (75.5-95.3); MONOCYTES # (AUTO) 0.2 K/uL (0.1-1.30); MONOCYTES % (AUTO) 3.7 % (0.0-11.0); NEUTROPHILS # (AUTO) 3.9 K/uL (1.8-8.9); NEUTROPHILS % (AUTO) 63.8 % (38.5-71.5); PLATELET COUNT (AUTO) 185 K/uL (179-408); RED BLOOD CELL COUNT(AUTO) 3.61 MIL/uL (3.63-4.92); WHITE BLOOD COUNT (AUTO) 6.2 K/uL (3.8-11.8)
[2024-08-23 10:27] LABS: RBC,URINE 0-3 /HPF (0-3)
[2024-08-23 10:28] LABS: BACTERIA,URINE MANY /HPF (NONE SEEN); SQUAMOUS EPITHELIAL CELL,UR FEW /HPF (NONE SEEN); WBC,URINE 80-100 /HPF (0-3)
[2024-08-23 10:58] LABS: ALBUMIN 3.3 g/dL (3.4-5.0); BILIRUBIN,TOTAL 0.6 mg/dL (0.2-1.0); CALCIUM 8.9 mg/dL (8.5-10.1); CREATININE 1.2 mg/dL (0.6-1.3); PHOSPHOROUS 1.4 mg/dL (2.5-4.9); POTASSIUM 3.4 mmol/L (3.5-5.1); TOTAL PROTEIN, SERUM 7.8 g/dL (6.4-8.2)
[2024-08-23] MEDS: AMLODIPINE 5 MG TABLET PO ONE (10:58)
[2024-08-23] MEDS: CEFTRIAXONE 1 G in IV DEXTROSE 5% 50 ML IV SCH (10:58)
[2024-08-23] MEDS: CARVEDILOL 6.25 MG TABLET PO SCH (11:02)
[2024-08-23 11:29] LABS: DIFFERENTIAL COMMENT 1
[2024-08-23] MEDS: MAGNESIUM SULFATE/D5W 100 ML IV SCH (12:03)
[2024-08-23] MEDS ORDERED: NEUTRA PHOS PACKET PO SCH (16:30)
[2024-08-23 21:30] LABS: *AMPHETAMINE, URINE NEGATIVE (NEGATIVE); *BARBITURATE, URINE NEGATIVE (NEGATIVE); *BENZODIAZEPINE, URINE NEGATIVE (NEGATIVE); *CANNABINOID, URINE NEGATIVE (NEGATIVE); *COCCAINE, URINE NEGATIVE (NEGATIVE); *OPIATE, URINE NEGATIVE (NEGATIVE); *PHENCYCLIDINE SCREEN,URINE NEGATIVE (NEGATIVE); FENTANYL, URINE NEGATIVE (NEGATIVE)
[2024-08-24 05:08] VITALS: BP 98/47; TEMP 98.5; O2SAT 99
[2024-08-24 07:19] VITALS: BP 153/88; TEMP 97.8; O2SAT 100
[2024-08-24 07:33] LABS: EOSINOPHILS # (AUTO) 0.1 K/uL (0.0-0.7); EOSINOPHILS % (AUTO) 1.9 % (0.0-7.0); HEMATOCRIT 28.9 % (31.2-41.9); HEMOGLOBIN 9.9 g/dL (10.9-14.3); LYMPHOCYTES # (AUTO) 1.1 K/uL (0.8-4.8); LYMPHOCYTES % (AUTO) 22.6 % (20.5-51.5); MEAN CORPUSCULAR HGB CONC 34 g/dL (32.3-35.6); MEAN CORPUSCULAR VOLUME 81.5 fL (75.5-95.3); MONOCYTES # (AUTO) 0.2 K/uL (0.1-1.30); MONOCYTES % (AUTO) 4.3 % (0.0-11.0); NEUTROPHILS # (AUTO) 3.4 K/uL (1.8-8.9); NEUTROPHILS % (AUTO) 70.2 % (38.5-71.5); PLATELET COUNT (AUTO) 158 K/uL (179-408); RED BLOOD CELL COUNT(AUTO) 3.55 MIL/uL (3.63-4.92); RED CELL DISTRIBUTION WIDTH 15.6 % (12.3-17.7); WHITE BLOOD COUNT (AUTO) 4.9 K/uL (3.8-11.8)
[2024-08-24 07:48] LABS: CALCIUM 9.2 mg/dL (8.5-10.1); CREATININE 0.8 mg/dL (0.6-1.3); MAGNESIUM 1.7 mg/dL (1.8-2.4); PHOSPHOROUS 1.7 mg/dL (2.5-4.9)
[2024-08-24 07:50] LABS: DIFFERENTIAL COMMENT 1
[2024-08-24] MEDS: CHLORDIAZEPOXIDE HCL 25 MG CAPSULE PO SCH (08:36)
[2024-08-24] MEDS: AMLODIPINE 10 MG TABLET PO SCH (08:38)
[2024-08-24] MEDS ORDERED: AMLODIPINE 5 MG TABLET PO SCH (09:00)
[2024-08-24 11:06] LABS: PTH, INTACT 62 pg/mL (15-65)
[2024-08-24] MEDS ORDERED: NEUTRA PHOS PACKET PO ONE (11:30)
[2024-08-24] MEDS: POTASSIUM CHLORIDE 20 MEQ TAB.PRT.SR PO SCH (11:50)
[2024-08-24] MEDS: MAGNESIUM OXIDE 400 MG TABLET PO ONE (11:50)
[2024-08-24 16:00] VITALS: BP 143/83; TEMP 98.5; O2SAT 99
[2024-08-24] MEDS: NEUTRA PHOS PACKET PO ONE (17:59)
[2024-08-24 21:32] VITALS: BP 150/90; TEMP 98.7; O2SAT 100
[2024-08-25 00:37] VITALS: BP 138/82; TEMP 98.1; O2SAT 98
[2024-08-25 06:27] VITALS: BP 162/94; TEMP 98.3; O2SAT 97
[2024-08-25 07:46] VITALS: BP 160/88; TEMP 98.9; O2SAT 99
[2024-08-25] MEDS: POTASSIUM CHLORIDE 20 MEQ TAB.PRT.SR PO ONE (09:02)
[2024-08-25 11:38] VITALS: BP 141/74; TEMP 97.8; O2SAT 99
[2024-08-25 15:40] VITALS: BP 137/76; TEMP 97.7; O2SAT 99
[2024-08-25 20:21] VITALS: BP 105/64; TEMP 97.9; O2SAT 95
[2024-08-26 00:15] VITALS: BP 164/95; TEMP 98.1; O2SAT 99
[2024-08-26 04:12] VITALS: BP 154/86; TEMP 98.1; O2SAT 100
[2024-08-26 07:58] VITALS: BP 151/94; TEMP 98.4; O2SAT 96
[2024-08-26 09:06] LABS: ALBUMIN 3.5 g/dL (2.9-4.4); ALPHA-1-GLOBULIN 0.3 g/dL (0.0-0.4); ALPHA-2-GLOBULIN 0.8 g/dL (0.4-1.0); BETA GLOBULIN 1.5 g/dL (0.7-1.3); GLOBULIN, TOTAL 3.6 g/dL (2.2-3.9); M-SPIKE Not Observed g/dL (Not Observed); PROTEIN, TOTAL 7.1 g/dL (6.0-8.5)
[2024-08-26 09:07] VITALS: BP 151/94
[2024-08-26] MEDS ORDERED: GLUCERNA SHAKE 237 ML CAN PO SCH (17:00)
== END 2024-08-26 15:05 | DRG 918 ==
LOC: ER 09:30 → TELE3 22:53
PROVIDERS: ADMIT Nurse Practitioner Family; ATTEND Nurse Practitioner Family
PROC: 05HB33Z Insertion of Infusion Device into Right Basilic Vein, Percutaneous Approach (ICD-10-PCS; principal; 2024-08-21)
DX: T51.0X1A Toxic effect of ethanol, accidental (unintentional), initial encounter (principal); E87.29 Other acidosis; Z59.02 Unsheltered homelessness; E87.1 Hypo-osmolality and hyponatremia; N17.8 Other acute kidney failure; G40.909 Epilepsy, unspecified, not intractable, without status epilepticus; G89.4 Chronic pain syndrome; I25.10 Atherosclerotic heart disease of native coronary artery without angina pectoris; Z79.899 Other long term (current) drug therapy; Z82.49 Family history of ischemic heart disease and other diseases of the circulatory system; Z87.891 Personal history of nicotine dependence; Z86.73 Personal history of transient ischemic attack (TIA), and cerebral infarction without residual deficits; E11.51 Type 2 diabetes mellitus with diabetic peripheral angiopathy without gangrene; E11.42 Type 2 diabetes mellitus with diabetic polyneuropathy; D63.8 Anemia in other chronic diseases classified elsewhere; D57.3 Sickle-cell trait; E78.5 Hyperlipidemia, unspecified; I10 Essential (primary) hypertension; Y92.410 Unspecified street and highway as the place of occurrence of the external cause; K21.9 Gastro-esophageal reflux disease without esophagitis; K57.30 Diverticulosis of large intestine without perforation or abscess without bleeding
CPT/HCPCS: 36415; 36600; 71045; 83550; 83605; 83735; 83970; 84100; 84155; 84165; 84300; 84484; 85025; 85730; 93307; G0378; G0480; J0360; J0696; J1644; J2405; J3475; J7120

== ENCOUNTER 2024-10-12 13:39 | Emergency (ER) | payer OTHER ==
[~2024-10-12] VITALS: Ht 160 cm; Wt 77.1 kg
[~2024-10-12 13:39] MED LIST changes: -CEPH500C2 PO; -HYDR25TA4 PO; -LOSA100T31 PO
[2024-10-12] MEDS ORDERED: levETIRAcetam 250 MG TABLET ONE (14:08)
[2024-10-12] MEDS: levETIRAcetam 250 MG TABLET PO ONE (14:11)
[2024-10-12 15:43] LABS: BASOPHILS % (AUTO) 0.6 % (0.0-2.0); EOSINOPHILS % (AUTO) 0.1 % (0.0-7.0); HEMATOCRIT 27.5 % (31.2-41.9); HEMOGLOBIN 9.4 g/dL (10.9-14.3); LYMPHOCYTES # (AUTO) 0.8 K/uL (0.8-4.8); LYMPHOCYTES % (AUTO) 16.3 % (20.5-51.5); MEAN CORPUSCULAR HEMOGLOBIN 28.4 uug (24.7-32.8); MEAN CORPUSCULAR HGB CONC 34 g/dL (32.3-35.6); MEAN CORPUSCULAR VOLUME 83.2 fL (75.5-95.3); MONOCYTES # (AUTO) 0.2 K/uL (0.1-1.30); MONOCYTES % (AUTO) 5.1 % (0.0-11.0); NEUTROPHILS # (AUTO) 3.8 K/uL (1.8-8.9); NEUTROPHILS % (AUTO) 77.9 % (38.5-71.5); PLATELET COUNT (AUTO) 102 K/uL (179-408); RED BLOOD CELL COUNT(AUTO) 3.31 MIL/uL (3.63-4.92); RED CELL DISTRIBUTION WIDTH 17.9 % (12.3-17.7); WHITE BLOOD COUNT (AUTO) 4.9 K/uL (3.8-11.8)
[2024-10-12 15:44] LABS: DIFFERENTIAL COMMENT 1
[2024-10-12 15:51] LABS: CALCIUM 8.9 mg/dL (8.5-10.1); POTASSIUM 4.6 mmol/L (3.5-5.1)
[2024-10-12 15:57] LABS: ALBUMIN 3.7 g/dL (3.4-5.0); BILIRUBIN,DIRECT 0.3 mg/dL (0.0-0.2); BILIRUBIN,TOTAL 0.7 mg/dL (0.2-1.0); TOTAL PROTEIN, SERUM 7.8 g/dL (6.4-8.2)
[2024-10-12] MEDS ORDERED: ONDANSETRON ODT 4 MG TAB.RAPDIS ONE (16:50)
[2024-10-12] MEDS: ONDANSETRON ODT 4 MG TAB.RAPDIS SL ONE (16:51)
[2024-10-12] MEDS ORDERED: LEVE500T83 PO (16:56)
[2024-10-12 17:31] VITALS: BP 123/88; O2SAT 98
== END 2024-10-12 17:18 | disposition home or self-care (01) ==
LOC: ER 13:39
DX: G40.909 Epilepsy, unspecified, not intractable, without status epilepticus (principal); E11.9 Type 2 diabetes mellitus without complications; F17.200 Nicotine dependence, unspecified, uncomplicated; G89.29 Other chronic pain; I25.10 Atherosclerotic heart disease of native coronary artery without angina pectoris; Z59.00 Homelessness unspecified; Z79.899 Other long term (current) drug therapy; Z86.73 Personal history of transient ischemic attack (TIA), and cerebral infarction without residual deficits; Z88.7 Allergy status to serum and vaccine
CPT/HCPCS: 36415; 80299; 85025; A4606; A4663; Q0162

== ENCOUNTER 2024-12-15 20:23 | Emergency (ER) | payer OTHER | END 2024-12-15 22:37 | disposition left against medical advice (07) | LOC: ER 20:23 | DX: E87.1 Hypo-osmolality and hyponatremia (principal); Z53.21 Procedure and treatment not carried out due to patient leaving prior to being seen by health care provider ==

== ENCOUNTER → 2024-12-15 | Emergency (ER) | payer OTHER ==
[~2024-12-15] VITALS: Ht 167.6 cm; Wt 59.0 kg
[~2024-12-15] MED LIST changes: +LEVE500T83 PO; +LEVE500T9 PO; +ONDA4TAB5 PO
[2024-12-15 17:09] VITALS: O2SAT 100
[2024-12-15] MEDS: ONDANSETRON ODT 4 MG TAB.RAPDIS SL ONE (17:43)
[2024-12-15] MEDS: levETIRAcetam 250 MG TABLET PO ONE (17:48)
[2024-12-15 18:02] LABS: BASOPHILS % (AUTO) 0.4 % (0.0-2.0); EOSINOPHILS % (AUTO) 0.3 % (0.0-7.0); HEMATOCRIT 28.1 % (31.2-41.9); HEMOGLOBIN 9.2 g/dL (10.9-14.3); LYMPHOCYTES # (AUTO) 2.2 K/uL (0.8-4.8); LYMPHOCYTES % (AUTO) 44.9 % (20.5-51.5); MEAN CORPUSCULAR HEMOGLOBIN 28.7 uug (24.7-32.8); MEAN CORPUSCULAR HGB CONC 33 g/dL (32.3-35.6); MEAN CORPUSCULAR VOLUME 87.7 fL (75.5-95.3); MONOCYTES # (AUTO) 0.3 K/uL (0.1-1.30); MONOCYTES % (AUTO) 6.7 % (0.0-11.0); NEUTROPHILS # (AUTO) 2.4 K/uL (1.8-8.9); NEUTROPHILS % (AUTO) 47.7 % (38.5-71.5); PLATELET COUNT (AUTO) 141 K/uL (179-408); RED BLOOD CELL COUNT(AUTO) 3.21 MIL/uL (3.63-4.92)
[2024-12-15 18:04] LABS: DIFFERENTIAL COMMENT 1
[2024-12-15 18:07] LABS: CREATININE 1.2 mg/dL (0.6-1.3); POTASSIUM 4.1 mmol/L (3.5-5.1)
[2024-12-15 18:13] LABS: ALBUMIN 3.5 g/dL (3.4-5.0); BILIRUBIN,DIRECT 0.4 mg/dL (0.0-0.2); TOTAL PROTEIN, SERUM 7.4 g/dL (6.4-8.2)
[2024-12-15] MEDS: IV NORMAL SALINE 1000 ML BAG IV ONE (18:32)
== END | disposition home or self-care (01) ==
LOC: ER 17:24
DX: G40.909 Epilepsy, unspecified, not intractable, without status epilepticus (principal); K59.00 Constipation, unspecified; E11.9 Type 2 diabetes mellitus without complications; F17.200 Nicotine dependence, unspecified, uncomplicated; G89.29 Other chronic pain; I10 Essential (primary) hypertension; Z59.00 Homelessness unspecified; Z79.899 Other long term (current) drug therapy; Z86.73 Personal history of transient ischemic attack (TIA), and cerebral infarction without residual deficits; Z88.7 Allergy status to serum and vaccine; Z95.5 Presence of coronary angioplasty implant and graft; Z99.3 Dependence on wheelchair; Z86.69 Personal history of other diseases of the nervous system and sense organs; Z86.79 Personal history of other diseases of the circulatory system; Z87.19 Personal history of other diseases of the digestive system; Z87.2 Personal history of diseases of the skin and subcutaneous tissue
CPT/HCPCS: 83690; 85025; A4606; A4663; Q0162

== ENCOUNTER 2025-05-02 08:18 | Inpatient (IN) | payer OTHER ==
[~2025-05-02] VITALS: Ht 167.6 cm; Wt 54.0 kg
[2025-05-02 09:13] LABS: *BILIRUBIN,URIN NEGATIVE (NEGATIVE); *BLOOD, URINE 2+ (NEGATIVE); *CLARITY,URINE CLOUDY (CLEAR); *COLOR,URINE YELLOW (YELLOW); *KETONES,URINE 4+ (NEGATIVE); *PROTEIN,URINE 2+ (NEGATIVE); *UROBILINOGEN,URINE 0.2 E.U./dl (NORMAL); LEUKOCYTE ESTERASE ,URINE 3+ (NEGATIVE); NITRITE, URINE NEGATIVE (NEGATIVE); UGLUCOSE NEGATIVE (NEGATIVE)
[2025-05-02 09:20] LABS: PLATELET COUNT (AUTO) 312 K/uL (179-408); RED BLOOD CELL COUNT(AUTO) 3.55 MIL/uL (3.63-4.92); RED CELL DISTRIBUTION WIDTH 15.5 % (12.3-17.7); WHITE BLOOD COUNT (AUTO) 9.1 K/uL (3.8-11.8)
[2025-05-02 09:26] LABS: SQUAMOUS EPITHELIAL CELL,UR FEW /HPF (NONE SEEN)
[2025-05-02 09:28] LABS: CREATININE 1.1 mg/dL (0.6-1.3); SODIUM SERUM 138.0 mmol/L (136-145); UREA NITROGEN, BLOOD 26.0 mg/dL (7-18)
[2025-05-02 09:34] LABS: ASPARTATE AMINOTRANSFERASE 64.0 U/L (15-37); TOTAL PROTEIN, SERUM 8.9 g/dL (6.4-8.2)
[2025-05-02 09:39] LABS: ETHANOL < 3 MG/DL (0-10)
[2025-05-02 09:39] LABS: *AMPHETAMINE, URINE NEGATIVE (NEGATIVE); *BARBITURATE, URINE NEGATIVE (NEGATIVE); *BENZODIAZEPINE, URINE NEGATIVE (NEGATIVE); *CANNABINOID, URINE NEGATIVE (NEGATIVE); *COCCAINE, URINE NEGATIVE (NEGATIVE); *OPIATE, URINE NEGATIVE (NEGATIVE); *PHENCYCLIDINE SCREEN,URINE NEGATIVE (NEGATIVE); FENTANYL, URINE NEGATIVE (NEGATIVE)
[2025-05-02] MEDS ORDERED: CEFTRIAXONE 500 MG VIAL IV ONE (10:00)
[2025-05-02] MEDS: IV NORMAL SALINE 1000 ML BAG IV ONE (10:07)
[2025-05-02 11:20] LABS: ABG BASE EXCESS -12.9 mmol/L (-2.0-3.0); ABG HCO3 11.6 mmol/L (21.0-28.0); ABG PCO2 22.9 mmHg (32.0-45.0); ABG PH 7.321 (7.350-7.450); ABG PO2 59.9 mmHg (83.0-108.0); ABG TOTAL HEMOGLOBIN 10.0 G/dL (12.0-16.0); AaDO2 89.7 mmHg; FIO2 21.0 %; FLOW, BLOOD GAS 0.00 L/min (0.00-30.00)
[2025-05-02] MEDS ORDERED: CLONIDINE HCL 0.1 MG TABLET ONE ×2 (11:23→12:21)
[2025-05-02] MEDS: CLONIDINE HCL 0.1 MG TABLET PO ONE ×2 (11:24→12:22)
[2025-05-02 12:34] VITALS: BP 162/97
[2025-05-02] MEDS ORDERED: LORAZEPAM 2 MG/1 ML VIAL IV PRN (14:15)
[2025-05-02] MEDS ORDERED: DEXTROSE 50% 50 ML DISP.SYRIN IV PRN (14:15)
[2025-05-02] MEDS ORDERED: REMEDY ESSENTIAL ZINC PASTE 113 GM TP PRN (14:15)
[2025-05-02] MEDS ORDERED: ONDANSETRON 4 MG/2 ML VIAL IV PRN (14:15)
[2025-05-02 14:20] VITALS: BP 163/75; TEMP 98.6; O2SAT 99
[2025-05-02] MEDS: AMLODIPINE 5 MG TABLET PO SCH (14:25)
[2025-05-02] MEDS: SODIUM BICARBONATE 8.4% 50 MEQ in IV D5 1/2 NS 1000 ML 1,000 ML IV PRN (15:09)
[2025-05-02] MEDS: BLOOD SUGAR DIAGNOSTIC 1 EACH STRIP VI SCH (16:22)
[2025-05-02] MEDS: CHLORDIAZEPOXIDE HCL 25 MG CAPSULE PO SCH (16:31)
[2025-05-02] MEDS: INSULIN REGULAR, HUMAN 1000 UNIT/10 ML VIAL SQ PRN (16:35)
[2025-05-02 19:12] VITALS: BP 116/59; TEMP 98.8; O2SAT 100
[2025-05-02] MEDS: ACETAMINOPHEN 325 MG TABLET PO PRN (20:57)
[2025-05-03 04:11] VITALS: BP 131/74; TEMP 98.1; O2SAT 100
[2025-05-03] MEDS: MORPHINE SULFATE 2 MG/1 ML DISP.SYRIN IV ONE (04:11)
[2025-05-03 06:34] LABS: PLATELET COUNT (AUTO) 175 K/uL (179-408); RED BLOOD CELL COUNT(AUTO) 3.43 MIL/uL (3.63-4.92); RED CELL DISTRIBUTION WIDTH 14.9 % (12.3-17.7); WHITE BLOOD COUNT (AUTO) 3.9 K/uL (3.8-11.8)
[2025-05-03] MEDS: PANTOPRAZOLE SODIUM 40 MG TABLET.DR PO SCH (06:42)
[2025-05-03 06:49] LABS: CREATININE 1.2 mg/dL (0.6-1.3); SODIUM SERUM 136.0 mmol/L (136-145); UREA NITROGEN, BLOOD 22.0 mg/dL (7-18)
[2025-05-03 07:35] VITALS: BP 136/76; TEMP 98.6; O2SAT 99
[2025-05-03 07:45] VITALS: BP 136/76; TEMP 98.6; O2SAT 99
[2025-05-03] MEDS: THIAMINE HCL 100 MG TABLET PO SCH (08:16)
[2025-05-03] MEDS: FOLIC ACID 1 MG TABLET PO SCH (08:16)
[2025-05-03] MEDS: MAGNESIUM SULFATE/D5W 100 ML IV SCH (09:39)
[2025-05-03] MEDS: POTASSIUM PHOSPHATE MM 15 MMOL in IV NORMAL SALINE 250 ML IV ONE (11:09)
[2025-05-03 11:21] VITALS: BP 117/67; TEMP 98.4; O2SAT 96
[2025-05-03 15:14] VITALS: BP 132/66; TEMP 97.6; O2SAT 97
[2025-05-03] MEDS: HYDROCODONE/APAP 5-325MG TABLET PO PRN (16:14)
[2025-05-03 19:00] VITALS: BP 105/63; TEMP 98.1; O2SAT 100
[2025-05-04] VITALS: BP 132/77; TEMP 98; O2SAT 100
[2025-05-04 04:00] VITALS: BP 132/83; TEMP 97.7; O2SAT 100
[2025-05-04 06:44] LABS: CREATININE 0.9 mg/dL (0.6-1.3); SODIUM SERUM 141.0 mmol/L (136-145); UREA NITROGEN, BLOOD 15.0 mg/dL (7-18)
[2025-05-04 06:56] LABS: PLATELET COUNT (AUTO) 174 K/uL (179-408); RED BLOOD CELL COUNT(AUTO) 3.57 MIL/uL (3.63-4.92); RED CELL DISTRIBUTION WIDTH 15.2 % (12.3-17.7); WHITE BLOOD COUNT (AUTO) 3.2 K/uL (3.8-11.8)
[2025-05-04 07:29] VITALS: BP 151/82; TEMP 98.2; O2SAT 100
[2025-05-04] MEDS: GLUCERNA SHAKE 237 ML CAN PO SCH (08:42)
[2025-05-04 11:07] VITALS: BP 136/79; TEMP 98.4; O2SAT 98
[2025-05-04 15:11] VITALS: BP 140/73; TEMP 98.3; O2SAT 94
[2025-05-04 19:36] VITALS: BP 143/85; TEMP 98; O2SAT 97
[2025-05-05 00:10] VITALS: BP 155/92; TEMP 98.7; O2SAT 97
[2025-05-05 06:03] VITALS: BP 147/99; TEMP 98.2; O2SAT 98
[2025-05-05 07:29] VITALS: BP 150/84; TEMP 97.8; O2SAT 96
[2025-05-05 10:39] VITALS: BP 129/72; TEMP 98.1; O2SAT 100
[2025-05-05 15:40] VITALS: BP 142/90; TEMP 97.6; O2SAT 96
[2025-05-05 19:40] VITALS: BP 154/79; TEMP 98.9; O2SAT 100
[2025-05-06 05:58] VITALS: BP 148/96; TEMP 97.8; O2SAT 100
[2025-05-06 07:42] VITALS: BP 120/61; TEMP 97.8; O2SAT 100
[2025-05-06] MEDS ORDERED: THIA100T13 PO (08:47)
[2025-05-06] MEDS ORDERED: AMLO10TA59 PO (08:47)
[2025-05-06] MEDS ORDERED: CEPH500C2 PO (08:47)
[2025-05-06] MEDS ORDERED: FOLI1TAB94 PO (08:47)
[2025-05-06] MEDS: AMLODIPINE 10 MG TABLET PO SCH (10:06)
[2025-05-06 11:34] VITALS: BP 141/72; TEMP 98.5; O2SAT 99
== END 2025-05-06 16:40 | disposition left against medical advice (07) | DRG 641 ==
LOC: ER 08:18 → TELE3 12:50 → MEDSURG3 05-05 08:46
PROVIDERS: ADMIT Nurse Practitioner Family; ATTEND Nurse Practitioner Family
PROC: 05HA33Z Insertion of Infusion Device into Left Brachial Vein, Percutaneous Approach (ICD-10-PCS; principal; 2025-05-03)
DX: E87.29 Other acidosis (principal); N39.0 Urinary tract infection, site not specified; Z59.02 Unsheltered homelessness; F10.239 Alcohol dependence with withdrawal, unspecified; I16.0 Hypertensive urgency; D57.3 Sickle-cell trait; I25.10 Atherosclerotic heart disease of native coronary artery without angina pectoris; G40.909 Epilepsy, unspecified, not intractable, without status epilepticus; Z79.899 Other long term (current) drug therapy; Z82.49 Family history of ischemic heart disease and other diseases of the circulatory system; G89.4 Chronic pain syndrome; E11.40 Type 2 diabetes mellitus with diabetic neuropathy, unspecified; K57.30 Diverticulosis of large intestine without perforation or abscess without bleeding; D64.9 Anemia, unspecified; E86.0 Dehydration; I10 Essential (primary) hypertension; R79.89 Other specified abnormal findings of blood chemistry; Z95.5 Presence of coronary angioplasty implant and graft; Z91.018 Allergy to other foods; Z86.73 Personal history of transient ischemic attack (TIA), and cerebral infarction without residual deficits
CPT/HCPCS: 36415; 36600; 82803; 83735; 84100; 84484; 85025; 87077; 87086; A4606; A4663; G0378; G0480; J0696; J1815; J2270; J3475; J3490; J7040